=== PATIENT | male | born 1940 | race Caucasian/White ===

== ENCOUNTER 2019-10-16 09:40 | Emergency (ER) | payer MEDICARE, OTHER, SELFPAY ==
[2019-09-11 14:39] VITALS: BMI 38.2
[2019-10-16 09:41] VITALS: BP 148/99; PULSE 91; RESP 20; TEMP 37.2; O2SAT 93; BMI 34.9
[2019-10-16] MEDS: Silver Nitrate (BKC) 1 EACH TOPICAL (10:22)
[2019-10-16 10:23] LABS: International Normalized Ratio 2.6; Prothrombin Time (Protime)PT. 27.8 SECONDS (11.7-14.9)
--- NOTE | 2019-10-16 10:25 | ED.VISSUMM ---
- ER Visit Summary Date of Service: 10/16/19 Chief Complaint: Nosebleed History of Present Illness: The patient is a 79 M presenting with nosebleed. Patient states that he has had nosebleed on and off for the past week. He was seen at [facility] on Wednesday and Wednesday of last week. He states initially he had packing placed on Wednesday. Bleeding resolved. Started again on Wednesday. He went back to the ED at [place] and his packing was removed. He then followed up with Dr. Parvez Jaramillo the same day. His nose was cauterized. His states it bled intermittently and Wednesday. The bleeding had stopped Wednesday and Wednesday and started again today. He is on Coumadin. She states 2 doses of his Coumadin were held last week. He was restarted on 10 mg of Coumadin. Physical Examination: Vitals are stable. Patient is afebrile. Alert no acute distress. HEENT exam epistaxis right nares with clot. Blood in posterior pharynx. Neck is supple. Lungs are clear and equal bilaterally. Heart is regular rate and rhythm. Extremities are unremarkable. Skin is warm and dry. No focal neurologic deficit. Remainder of exam is unremarkable. Emergency Department Course and Treatment: Direct pressure was applied. Rhino Rocket was placed. Patient continued to have bleeding. Packing was removed. Silver nitrate stick was used to cauterize. Thrombin spray was instilled into right naris. Rhino Rocket was reinserted. Discussed with Dr. Phipps who recommends continued direct pressure and discharge with Rhino Rocket. On reevaluation, bleeding has stopped. He will follow-up with Dr. Phipps. Advised return to ED for worsening complaints. Disposition: Discharge home Impression: Epistaxis This note was generated with [employer] dictation software. It may contain incorrect words, spelling, and punctuation that were not noted in review of the chart prior to signing ED Disposition - Plan for ED Patient: Instructions: Nosebleed Referrals: Parvez Phipps MD [STAFF PHYSICIAN] - Laith Barriga MD [NON-STAFF] -
--- NOTE | 2019-10-16 12:24 | ED.DEP ---
ED Disposition - Plan for ED Patient: Instructions: Nosebleed Referrals: Laith Barriga MD [NON-STAFF] - Parvez Phipps MD [STAFF PHYSICIAN] -
[2019-10-16 13:09] VITALS: BP 148/90; PULSE 82; RESP 18; O2SAT 98
== END 2019-10-16 13:11 | disposition home or self-care (01) ==
PROVIDERS: Emergency Provider Emergency Medicine; Family Provider Nurse Practitioner
DX: R04.0 Epistaxis (principal); I48.91 Unspecified atrial fibrillation; I11.0 Hypertensive heart disease with heart failure; I50.9 Heart failure, unspecified; Z79.01 Long term (current) use of anticoagulants; Z79.899 Other long term (current) drug therapy
CPT/HCPCS: 30901; 85610; 99284

== ENCOUNTER → 2020-05-15 | Outpatient (CLI) | payer MEDICARE, OTHER, SELFPAY ==
[2020-05-15 17:22] VITALS: BMI 38.1
[2020-05-15 22:20] LABS: ALB/GLOB Ratio 0.6 RATIO (0.9-2.4); AST(SGOT) 72 U/L (15-37); Alanine Aminotransfer ALT/SGPT 44 U/L (16-61); Albumin, Serum 2.7 g/dL (3.2-5.0); Alkaline Phosphatase 147 U/L (45-117); Anion Gap 9 (5-15); BUN 35 mg/dL (7-18); BUN/Creat Ratio 17.2 RATIO (10-20); Chloride 107 mmol/L (98-107); Creatinine, Serum 2.03 mg/dL (0.70-1.30); EST Glomerular Filtration Rate 34 mL/min (>60); Est Glom Filt Rate - Afr Amer 41 mL/min (>60); Globulin 4.8 g/dL (2.2-4.2); Glucose 145 mg/dL (74-106); PSA,Total - Annual Screen 0.65 ng/mL (0.00-4.00); Potassium 3.6 mmol/L (3.5-5.1); Protein, Total 7.5 g/dL (6.4-8.2); Sodium Level 141 mmol/L (136-145)
== END | disposition home or self-care (01) ==
PROVIDERS: Referring Provider Nurse Practitioner; Visit Provider Nurse Practitioner
DX: I50.9 Heart failure, unspecified (principal); I48.91 Unspecified atrial fibrillation; N40.0 Benign prostatic hyperplasia without lower urinary tract symptoms
CPT/HCPCS: 80053; 84153; G0103

== ENCOUNTER 2021-04-03 08:30 | Emergency (ER) | payer OTHER, MEDICARE, SELFPAY ==
[2021-03-21 16:46] VITALS: BMI 38.5
[2021-04-03 08:31] VITALS: BP 152/89; PULSE 76; RESP 26; TEMP 36.6; O2SAT 86; BMI 38.7
--- NOTE | 2021-04-03 09:16 | EDS_ITS ---
HPI History of Present Illness Chief Complaint: Nosebleed Narrative Narrative: Patient presents with left epistaxis that started yesterday. He is on Coumadin for atrial fibrillation. He is on home oxygen. He has not been using Vaseline in his nose recently. He has no other symptoms he has no rectal bleeding or any other problems with bleeding. He has had epistaxis in the past for similar reasons. He has seen ENT. His INR was last checked 2 weeks ago. [facility] Medical History (Updated 04/03/21 @ 10:[address] Oscar Lockhart MD) Alzheimer's dementia Atrial fib/flutter, transient Atrial fibrillation status post cardioversion BPH (benign prostatic hyperplasia) Depression Diabetes type 2, uncontrolled Edema, lower extremity Hyperlipidemia Hypertension Insomnia Sleep apnea Home Medications atorvastatin 80 mg tablet 80 mg PO DAILY 03/23/19 [History Last Taken Unknown] carvedilol 6.25 mg tablet 6.25 mg PO BID 03/23/19 [History Last Taken Unknown] cholecalciferol (vitamin D3) 50 mcg (2,000 unit) capsule 2,000 unit PO DAILY 03/23/19 [History Last Taken Unknown] donepezil 5 mg tablet 5 mg PO DAILY 03/23/19 [History Last Taken Unknown] melatonin 10 mg capsule 10 mg PO HS PRN 03/23/19 [History Last Taken Unknown] warfarin 4 mg tablet 4 mg PO DAILY 03/23/19 [History Last Taken Unknown] tamsulosin 0.4 mg capsule 0.4 mg PO DAILY #90 cap 05/15/20 [Rx Last Taken Unknown] torsemide 20 mg tablet 20 mg PO BID tab 05/15/20 [History Last Taken Unknown] inhalat.spacing dev,med. mask #1 ea 01/24/21 [Rx Last Taken Unknown] albuterol sulfate 90 mcg/actuation aerosol inhaler 2 puff INHALATION Q6H PRN 03/21/21 [History Last Taken Unknown] aspirin 81 mg tablet,delayed release 81 mg PO DAILY 03/21/21 [History Last Taken Unknown] diphenhydramine HCl 25 mg tablet 25 mg PO QHS 03/21/21 [History Last Taken Unknown] febuxostat 40 mg tablet 40 mg PO DAILY 03/21/21 [History Last Taken Unknown] memantine 5 mg tablet 5 mg PO BID #60 tab 03/21/21 [Rx Last Taken Unknown] multivitamin 1 tab PO DAILY 03/21/21 [History Last Taken Unknown] venlafaxine 75 mg capsule,extended release 24 hr 75 mg PO DAILY #90 cap 03/21/21 [Rx Last Taken Unknown] hydroxyzine HCl 10 mg tablet 10 mg PO TID-QID PRN #360 tab 04/01/21 [Rx Last Taken Unknown] warfarin [Coumadin] 4 mg PO SUTHFRSA 04/03/21 [History Last Taken Unknown] Allergy/AdvReac Type Severity Reaction Status Date / Time No Known Allergies Allergy Verified 04/03/21 08:37 Family History (Updated 03/23/19 @ 15:16 by Elen Barriga [employer], [employer]-C) Other Cancer Heart disease Hypertension Surgical History H/O splenectomy History of appendectomy History of nephrectomy, right Social History (Updated 05/15/20 @ 19:31 by Elen Barriga [employer], [employer]) Smoking Status: Never smoker alcohol intake: never ROS ROS ED ROS Narrative Past medical history: Borderline diabetes, vitamin B deficiency, chronic renal insufficiency, anemia, CHF, home oxygen, atrial fibrillation, BPH Medications: Reviewed at the bedside and in the computer. Social history: Noncontributory Review of systems: All systems negative except as indicated General: No fever Eyes: No visual changes ENT: Epistaxis as above Neck: No neck pain Cardiovascular: No chest pain Respiratory: Chronic dyspnea no new shortness of breath. Gastrointestinal: No nausea vomiting no black or red stools. Genitourinary: No hematuria Skin: No recent abrasions lacerations or any increased bleeding. Hematologic: He is prone to easy bleeding secondary to Coumadin however has not been an issue other than the epistaxis EXAM Physical Exam Narrative Exam Narrative: Physical exam General: Patient is relatively comfortable in the bed. Head: Normocephalic, Atraumatic Eyes: Conjunctiva not pale ENT: Left anterior plexus epistaxis, he does have some posterior oropharyngeal signs of bleeding. Neck: Supple, Nontender, No lymphadenopathy Cardiovascular: Somewhat irregular Respiratory: Coarse bilateral breath sounds but he is speaking in full sentences he uses his oxygen in his mouth secondary to his nose being clamped. He is not in any distress. GI: Abdomen is soft and nontender Extremities: Nontender, slight bilateral symmetric edema. Skin: Normal color, No rash. No pallor noted. Neurological: No focal deficit Const Vital Signs: 04/03/21 08:31 04/03/21 09:27 Temperature 98 F 98 F Temperature Source Temporal Temporal Pulse Rate 76 87 Respiratory Rate 26 H 19 H Blood Pressure 152/89 H 152/89 H Blood Pressure Mean 110 110 Pulse Ox 86 92 Oxygen Delivery Method Room Air Blow-by MDM MDM MDM Narrative Medical decision making narrative: After cauterizing the nose I observed for over an hour there is no rebleeding I rechecked the nare there is no signs of bleeding. INR is 4, I told the patient to decrease the Coumadin in half for the next 5 days and then get his INR checked early next week by his PCP, Dr. Toth in [place]. Otherwise he appears well there are no other signs of bleeding I believe he can be safely discharged. Lab Data Labs: Laboratory Results - last 24 hr 04/03/21 09:30 PT 38.5 H INR 4.0 H* Procedures Other Procedures Procedure(s): Epistaxis treatment Verbal consent obtained Silver nitrate stick was used to cauterize the left anterior plexus. Reevaluation at 5 minutes does not show any bleeding. Patient tolerated procedure well. Discharge Plan Triage Chief Complaint: Nosebleed ED Provider: Oscar Lockhart Dx/Rx/DC Orders Clinical Impression: Acute anterior epistaxis Instructions: ED Epistaxis (Adult) Prescriptions: No Action melatonin 10 mg capsule 10 mg PO HS PRN (Reason: Sleep) RF: 0 donepezil 5 mg tablet 5 mg PO DAILY RF: 0 cholecalciferol (vitamin D3) 2,000 unit capsule 2,000 unit PO DAILY RF: 0 warfarin 4 mg tablet 5 mg PO MOTUWE RF: 0 carvedilol 6.25 mg tablet 6.25 mg PO BID RF: 0 atorvastatin 80 mg tablet 80 mg PO DAILY RF: 0 torsemide 20 mg tablet 20 mg PO BID RF: 0 tamsulosin [Flomax] 0.4 mg capsule 0.4 mg PO DAILY Qty: 90 RF: 3 febuxostat 40 mg tablet 40 mg PO DAILY RF: 0 aspirin 81 mg tablet,delayed release (DR/EC) 81 mg PO DAILY RF: 0 diphenhydramine HCl [Allergy (diphenhydramine)] 25 mg tablet 25 mg PO QHS RF: 0 multivitamin Tablet 1 tab PO DAILY RF: 0 albuterol sulfate 90 mcg/actuation HFA aerosol inhaler 2 puff inhalation Q6H PRN (Reason: Shortness Of Breath) RF: 0 venlafaxine 75 mg capsule,extended release 24hr 75 mg PO DAILY Qty: 90 RF: 3 memantine [Namenda] 5 mg tablet 5 mg PO BID Qty: 60 RF: 1 warfarin [Coumadin] 4 mg Tablet 4 mg PO SUTHFRSA RF: 0 (DME) Space Chamber with Medium Mask Spacer See Rx Instructions .ROUTE .MEDSUPPLY Qty: 1 RF: 1 hydroxyzine HCl 10 mg tablet 10 mg PO TID-QID PRN (Reason: anxiety) Qty: 360 RF: 3 Primary Care Provider: Elen Barriga Referrals: Néstor Toth MD [NON-STAFF] - Elen Barriga [Primary Care Provider] - Activity Restrictions/Additional Instructions: Your INR was 4.0 today. Decrease your Coumadin in half over the next 5 days. Call today to get an appointment for redraw of the INR, which is your Coumadin level, early next week.
[2021-04-03 09:27] VITALS: BP 152/89; PULSE 87; RESP 19; TEMP 36.6; O2SAT 92
[2021-04-03] MEDS: Silver Nitrate (BKC) 1 EACH TOPICAL (09:32)
[2021-04-03 09:54] LABS: Prothrombin Time (Protime)PT. 38.5 SECONDS (11.7-14.9)
[2021-04-03 10:49] VITALS: PULSE 95; RESP 17; O2SAT 93
== END 2021-04-03 10:50 | disposition home or self-care (01) ==
LOC: ED 09:19
PROVIDERS: Emergency Provider Emergency Medicine
DX: R04.0 Epistaxis (principal); I13.0 Hypertensive heart and chronic kidney disease with heart failure and stage 1 through stage 4 chronic kidney disease, or unspecified chronic kidney disease; I50.9 Heart failure, unspecified; E11.22 Type 2 diabetes mellitus with diabetic chronic kidney disease; N18.9 Chronic kidney disease, unspecified; E11.65 Type 2 diabetes mellitus with hyperglycemia; I48.91 Unspecified atrial fibrillation; G30.9 Alzheimer's disease, unspecified; F02.80 Dementia in other diseases classified elsewhere, unspecified severity, without behavioral disturbance, psychotic disturbance, mood disturbance, and anxiety; E78.5 Hyperlipidemia, unspecified; N40.0 Benign prostatic hyperplasia without lower urinary tract symptoms; G47.30 Sleep apnea, unspecified; E53.9 Vitamin B deficiency, unspecified; G47.00 Insomnia, unspecified; F32.9 Major depressive disorder, single episode, unspecified; Z79.82 Long term (current) use of aspirin; Z79.01 Long term (current) use of anticoagulants; Z79.899 Other long term (current) drug therapy; Z99.81 Dependence on supplemental oxygen; Z90.81 Acquired absence of spleen; Z90.5 Acquired absence of kidney
CPT/HCPCS: 30901 ×2; 85610; 99282; 99283; A4216

== ENCOUNTER 2021-04-03 20:08 | Emergency (ER) | payer OTHER, MEDICARE, SELFPAY ==
[2021-04-03 08:31] VITALS: BMI 38.7
[2021-04-03 20:09] VITALS: BP 128/103; PULSE 105; RESP 19; TEMP 36.6; O2SAT 93; BMI 36.5
--- NOTE | 2021-04-03 20:55 | EX.ED.DYSGE1 ---
HPI History of Present Illness Chief Complaint: Nosebleed Informant: patient Onset/Context/Timing Onset: Today Context: Sudden Onset Timing: Continuous Current Severity: Mild Maximum Severity: Moderate Narrative Narrative: The patient is an 81-year-old male with medical history significant for A. fib and CHF who presents to the emergency department nosebleed. The patient was seen here earlier for nosebleed. At that time, he had his nose cauterized. He states that it was not bleeding until approximately hour and a half ago. He states it seemed to come from the right side. He was seen earlier for a left-sided bleed. His INR at that time was 4. He denies any other symptoms. Prior similar symptoms: Yes Recent Illness/Hospitalization: No PFSH [facility] Medical History Alzheimer's dementia Atrial fib/flutter, transient Atrial fibrillation status post cardioversion BPH (benign prostatic hyperplasia) Depression Diabetes type 2, uncontrolled Edema, lower extremity Hyperlipidemia Hypertension Insomnia Sleep apnea Home Medications atorvastatin 80 mg tablet 80 mg PO DAILY 03/23/19 [History Last Taken Unknown] carvedilol 6.25 mg tablet 6.25 mg PO BID 03/23/19 [History Last Taken Unknown] cholecalciferol (vitamin D3) 50 mcg (2,000 unit) capsule 2,000 unit PO DAILY 03/23/19 [History Last Taken Unknown] donepezil 5 mg tablet 5 mg PO DAILY 03/23/19 [History Last Taken Unknown] melatonin 10 mg capsule 10 mg PO HS PRN 03/23/19 [History Last Taken Unknown] warfarin 4 mg tablet 5 mg PO MOTUWE 03/23/19 [History Last Taken Unknown] tamsulosin 0.4 mg capsule 0.4 mg PO DAILY #90 cap 05/15/20 [Rx Last Taken Unknown] torsemide 20 mg tablet 20 mg PO BID tab 05/15/20 [History Last Taken Unknown] inhalat.spacing dev,med. mask #1 ea 01/24/21 [Rx Last Taken Unknown] albuterol sulfate 90 mcg/actuation aerosol inhaler 2 puff INHALATION Q6H PRN 03/21/21 [History Last Taken Unknown] aspirin 81 mg tablet,delayed release 81 mg PO DAILY 03/21/21 [History Last Taken Unknown] diphenhydramine HCl 25 mg tablet 25 mg PO QHS 03/21/21 [History Last Taken Unknown] febuxostat 40 mg tablet 40 mg PO DAILY 03/21/21 [History Last Taken Unknown] memantine 5 mg tablet 5 mg PO BID #60 tab 03/21/21 [Rx Last Taken Unknown] multivitamin 1 tab PO DAILY 03/21/21 [History Last Taken Unknown] venlafaxine 75 mg capsule,extended release 24 hr 75 mg PO DAILY #90 cap 03/21/21 [Rx Last Taken Unknown] hydroxyzine HCl 10 mg tablet 10 mg PO TID-QID PRN #360 tab 04/01/21 [Rx Last Taken Unknown] warfarin [Coumadin] 4 mg PO SUTHFRSA 04/03/21 [History Last Taken Unknown] Allergy/AdvReac Type Severity Reaction Status Date / Time No Known Allergies Allergy Verified 04/03/21 20:09 Family History Other Cancer Heart disease Hypertension Surgical History H/O splenectomy History of appendectomy History of nephrectomy, right Social History Smoking Status: Never smoker alcohol intake: never ROS ROS ED Constitutional Constitutional ED: Denies chills or fever(s) Eyes Eyes: Denies blurry vision or change in vision ENT ENT ED: Reports rhinorrhea; Denies ear pain or sore throat Cardiovascular Cardiovascular: Denies chest pain or palpitations Respiratory/Chest Respiratory/Chest: Denies cough, dyspnea or dyspnea on exertion Gastrointestinal Gastrointestinal: Denies abdominal pain, nausea or vomiting Genitourinary Genitourinary ED: Denies dysuria or urinary frequency Musculoskeletal Musculoskeletal: Denies arthralgias or myalgias Integumentary Denies rash Neurologic Neurologic: Denies headache(s) or paresthesias Psychiatric Psychiatric: Denies anxiety or depression Endocrine Endocrinology: Denies polydipsia or polyuria Allergic/Immunologic Allergic/Immunologic ED: Denies urticaria EXAM Physical Exam Const Vital Signs: 04/03/21 20:09 Temperature 97.8 F Temperature Source Temporal Pulse Rate 105 H Respiratory Rate 19 H Blood Pressure 128/103 H Blood Pressure Mean 111 Pulse Ox 93 Oxygen Delivery Method Nasal Cannula Oxygen Flow Rate (L/min) 2 Positive well nourished and well developed General Appearance ED: well developed HEENT Reports normocephalic, head/scalp atraumatic and moist mucous membranes HEENT Narrative: Patient does have large clot within the left nares. There is no evidence of posterior bleeding. Eyes PERRL and EOMs intact bilaterally Neck no lymphadenopathy and supple General: Negative for tenderness Chest Wall inspection of chest normal Resp normal respiratory effort and clear to auscultation bilaterally Cardio regular rate, regular rhythm and no murmurs GI normal to inspection, nondistended, normoactive bowel sounds Palpation: Negative for tender, guarding or rebound tenderness present Back/Spine no CVA tenderness Cervical Spine: Negative for cervical spine tenderness Thoracic Spine / Upper Back: Negative for thoracic spinal tenderness Extremity normal to inspection General Extremety ED: Negative for tenderness Neuro oriented x3 and CN's II-XII intact bilaterally Neuro Narrative: No focal deficits appreciated. Sensorium / Orientation: alert Psych mental status grossly normal Skin no rashes or lesions noted, no wounds and skin turgor normal Discharge Plan Triage Chief Complaint: Nosebleed ED Provider: Quinn Castrejon Dx/Rx/DC Orders Instructions: Nosebleed Prescriptions: No Action melatonin 10 mg capsule 10 mg PO HS PRN (Reason: Sleep) RF: 0 donepezil 5 mg tablet 5 mg PO DAILY RF: 0 cholecalciferol (vitamin D3) 2,000 unit capsule 2,000 unit PO DAILY RF: 0 warfarin 4 mg tablet 5 mg PO MOTUWE RF: 0 carvedilol 6.25 mg tablet 6.25 mg PO BID RF: 0 atorvastatin 80 mg tablet 80 mg PO DAILY RF: 0 torsemide 20 mg tablet 20 mg PO BID RF: 0 tamsulosin [Flomax] 0.4 mg capsule 0.4 mg PO DAILY Qty: 90 RF: 3 febuxostat 40 mg tablet 40 mg PO DAILY RF: 0 aspirin 81 mg tablet,delayed release (DR/EC) 81 mg PO DAILY RF: 0 diphenhydramine HCl [Allergy (diphenhydramine)] 25 mg tablet 25 mg PO QHS RF: 0 multivitamin Tablet 1 tab PO DAILY RF: 0 albuterol sulfate 90 mcg/actuation HFA aerosol inhaler 2 puff inhalation Q6H PRN (Reason: Shortness Of Breath) RF: 0 venlafaxine 75 mg capsule,extended release 24hr 75 mg PO DAILY Qty: 90 RF: 3 memantine [Namenda] 5 mg tablet 5 mg PO BID Qty: 60 RF: 1 warfarin [Coumadin] 4 mg Tablet 4 mg PO SUTHFRSA RF: 0 (DME) Space Chamber with Medium Mask Spacer See Rx Instructions .ROUTE .MEDSUPPLY Qty: 1 RF: 1 hydroxyzine HCl 10 mg tablet 10 mg PO TID-QID PRN (Reason: anxiety) Qty: 360 RF: 3 Primary Care Provider: Elen Barriga Referrals: Alec Mills MD [STAFF PHYSICIAN] - 2 Days (For packing removal) Elen Barriga [Primary Care Provider] -
== END 2021-04-03 23:31 | disposition home or self-care (01) ==
PROVIDERS: Emergency Provider Emergency Medicine
DX: R04.0 Epistaxis (principal); I48.91 Unspecified atrial fibrillation; I11.0 Hypertensive heart disease with heart failure; I50.9 Heart failure, unspecified; E11.65 Type 2 diabetes mellitus with hyperglycemia; F02.80 Dementia in other diseases classified elsewhere, unspecified severity, without behavioral disturbance, psychotic disturbance, mood disturbance, and anxiety; G30.9 Alzheimer's disease, unspecified; N40.0 Benign prostatic hyperplasia without lower urinary tract symptoms; E78.5 Hyperlipidemia, unspecified; G47.00 Insomnia, unspecified; G47.30 Sleep apnea, unspecified; F32.9 Major depressive disorder, single episode, unspecified; Z79.82 Long term (current) use of aspirin; Z79.01 Long term (current) use of anticoagulants; Z79.899 Other long term (current) drug therapy; Z90.81 Acquired absence of spleen; Z90.5 Acquired absence of kidney
CPT/HCPCS: 30901; 99282; A4216

== ENCOUNTER 2021-04-08 11:38 | Observation (INO) | payer OTHER, MEDICARE, SELFPAY ==
[2021-04-08] VITALS (7 sets, daily range): BP systolic 134–139; BP diastolic 78–108; PULSE 55–116; RESP 16–20; TEMP 36.1–36.9; O2SAT 89–100; BMI 36.5; BMI 37.6
[2021-04-08] MEDS: Oxymetazoline 0.05% 1 SPRAY SPRAY.BTL 2 SPRAY NASAL (12:07)
[2021-04-08 12:44] LABS: Absolute Lymphocyte Count 1.07 X10^3/uL (0.83-4.51); Absolute Neutrophil Count 5.9 X10^3/uL (2.0-7.7); Basophil# 0.04 X10^3/uL; Basophil% 0.5 % (0-1); Eosinophil# 0.33 X10^3/uL; Hematocrit 35.7 % (40-54); Hemoglobin 11.5 g/dL (13.0-16.5); Lymphocyte # 1.07 X10^3/ul (0.83-4.51); Lymphocyte % 12.9 % (19-41); Mean Corp Hgb Conc 32.2 g/dL (32-36); Mean Corpuscular Hgb 33.3 pg (27.0-32.0); Mean Corpuscular Volume 103.5 fL (80-94); Mean Platelet Vol. 10.5 fl (6.2-12.0); Monocyte# 0.92 X10^3/uL; Monocyte% 11.1 % (0-10); NRBC Flagged by Analyzer 2.2 % (0-5); Neutrophil # 5.89 X10^3/uL (2.7-7.7); Neutrophil % 70.8 % (47-70); POSITIVE MORPHOLOGY YES; Platelet Count 365 K/mm3 (150-450); RBC Distribution Width CV 18.6 % (11.6-14.6); RBC Distribution Width SD 68.9 fl (35.1-43.9); Red Blood Count 3.45 M/mm3 (4.6-6.2); White Blood Count 8.3 K/mm3 (4.4-11.0)
[2021-04-08 12:54] LABS: International Normalized Ratio 2.3; Prothrombin Time (Protime)PT. 24.7 SECONDS (11.7-14.9)
[2021-04-08 12:57] LABS: Anion Gap 6 (5-15); BUN 42 mg/dL (7-18); BUN/Creat Ratio 16.8 RATIO (10-20); Calcium,Total 9.2 mg/dL (8.5-10.1); Chloride 105 mmol/L (98-107); EST Glomerular Filtration Rate 27 mL/min (>60); Est Glom Filt Rate - Afr Amer 32 mL/min (>60); Estimated Creatinine Clearance 22.42 ml/min; Glucose 98 mg/dL (74-106); Potassium 3.3 mmol/L (3.5-5.1); Sodium Level 141 mmol/L (136-145)
[2021-04-08 12:59] LABS: Differential Indicated SCAN CRITERIA MET
[2021-04-08 13:02] LABS: Anisocytosis 2+
--- NOTE | 2021-04-08 13:18 | EDS_ITS ---
HPI History of Present Illness Chief Complaint: Nosebleed Narrative Narrative: Patient presenting for evaluation secondary to epistaxis. Patient had history of left-sided epistaxis that was treated 5 days ago in the emergency department with an anterior nasal packing. Patient is on Coumadin secondary to a history of atrial fibrillation. Patient was being seen in the ear nose and throat office today, Dr. Parvez Jaramillo was evaluating the patient, removed the packing and the bleeding again started. He attempted to perform cautery in the office, but stated that the patient's bleeding was more posterior and was difficult to obtain hemostasis with cautery. He contacted the emergency department and stated that he would like the patient to come back to the emergency department for repeat evaluation. Patient's 5 days ago had a supratherapeutic of INR of 4. He has not had this rechecked yet. [facility] Medical History (Updated 04/08/21 @ 13:[address] Quinn Montenegro MD) Alzheimer's dementia Atrial fib/flutter, transient Atrial fibrillation status post cardioversion BPH (benign prostatic hyperplasia) Depression Diabetes type 2, uncontrolled Edema, lower extremity Hyperlipidemia Hypertension Insomnia Sleep apnea Home Medications atorvastatin 80 mg tablet 80 mg PO DAILY 03/23/19 [History Last Taken Unknown] carvedilol 6.25 mg tablet 6.25 mg PO BID 03/23/19 [History Last Taken Unknown] cholecalciferol (vitamin D3) 50 mcg (2,000 unit) capsule 2,000 unit PO DAILY 03/23/19 [History Last Taken Unknown] donepezil 5 mg tablet 5 mg PO DAILY 03/23/19 [History Last Taken Unknown] melatonin 10 mg capsule 10 mg PO HS PRN 03/23/19 [History Last Taken Unknown] warfarin 4 mg tablet 5 mg PO MOTUWE 03/23/19 [History Last Taken Unknown] tamsulosin 0.4 mg capsule 0.4 mg PO DAILY #90 cap 05/15/20 [Rx Last Taken Unknown] torsemide 20 mg tablet 20 mg PO BID tab 05/15/20 [History Last Taken Unknown] inhalat.spacing dev,med. mask #1 ea 01/24/21 [Rx Last Taken Unknown] albuterol sulfate 90 mcg/actuation aerosol inhaler 2 puff INHALATION Q6H PRN 03/21/21 [History Last Taken Unknown] aspirin 81 mg tablet,delayed release 81 mg PO DAILY 03/21/21 [History Last Taken Unknown] diphenhydramine HCl 25 mg tablet 25 mg PO QHS 03/21/21 [History Last Taken Unknown] febuxostat 40 mg tablet 40 mg PO DAILY 03/21/21 [History Last Taken Unknown] memantine 5 mg tablet 5 mg PO BID #60 tab 03/21/21 [Rx Last Taken Unknown] multivitamin 1 tab PO DAILY 03/21/21 [History Last Taken Unknown] venlafaxine 75 mg capsule,extended release 24 hr 75 mg PO DAILY #90 cap 03/21/21 [Rx Last Taken Unknown] hydroxyzine HCl 10 mg tablet 10 mg PO TID-QID PRN #360 tab 04/01/21 [Rx Last Taken Unknown] warfarin [Coumadin] 4 mg PO SUTHFRSA 04/03/21 [History Last Taken Unknown] Allergy/AdvReac Type Severity Reaction Status Date / Time No Known Allergies Allergy Verified 04/08/21 11:41 Family History Other Cancer Heart disease Hypertension Surgical History H/O splenectomy History of appendectomy History of nephrectomy, right Social History Smoking Status: Never smoker alcohol intake: never ROS ROS ED Constitutional Constitutional ED: Denies fever(s) Eyes Eyes: Denies change in vision ENT ENT ED: Reports other Details: Nosebleed Cardiovascular Cardiovascular: Denies chest pain Respiratory/Chest Respiratory/Chest: Denies cough or dyspnea Gastrointestinal Gastrointestinal: Denies nausea or vomiting Musculoskeletal Musculoskeletal: Denies myalgias Integumentary Denies rash Neurologic Neurologic: Denies headache(s) or weakness Allergic/Immunologic Allergic/Immunologic ED: Denies urticaria EXAM Physical Exam Const Vital Signs: 04/08/21 11:39 Temperature 98.5 F Temperature Source Temporal Pulse Rate 107 H Respiratory Rate 18 Blood Pressure 134/108 H Blood Pressure Mean 116 Pulse Ox 89 Oxygen Delivery Method Nasal Cannula Oxygen Flow Rate (L/min) 2 Positive well nourished, well developed and obese General Appearance ED: well developed Nutritional Appearance: obese HEENT HEENT Narrative: Patient has active epistaxis coming from the left nostril with clots present. He also has bleeding in the posterior oropharynx. Airway is not compromised. Eyes PERRL and EOMs intact bilaterally Neck supple Resp normal respiratory effort and clear to auscultation bilaterally Cardio regular rate and no murmurs GI normal to inspection, nondistended, normoactive bowel sounds Extremity General Extremety ED: Negative for tenderness Neuro oriented x3 Sensorium / Orientation: alert Skin no rashes or lesions noted MDM MDM MDM Narrative Medical decision making narrative: Patient presented for evaluation secondary to refractory epistaxis. Upon the patient's arrival he was continuing to bleed. Bleeding was slow but was both anterior and posterior. Due to the fact that ENT reported that the patient's bleeding was more posterior I addressed the patient immediately for nasal packing with a 7.5 cm Rhino Rocket. I had the patient try to expel clots from his nostril. I attempted anesthetization of the patient's with 4% cocaine. Patient was unable to tolerate nasal packing placement. He was both to tender and also seems significantly stenotic in his left nostril likely secondary to his recent instrumentation. I repeated this multiple times, and was unable to provide adequate packing. I contacted Dr. Parvez Jaramillo who did send the patient. He advised that potentially the patient would not tolerate packing and less he was sedated. Patient is already chronically ill on supplemental oxygen and I do not feel comfortable with procedural sedation in the emergency department for nasal packing. I did inform Dr. Jaramillo of this. He stated that he no longer comes to the hospital and the patient would need to be referred to the on-call physician which was Dr. Tuan Quarles. Due to the fact that the patient is already a patient of Dr. Phipps group however, I contacted Dr. Seymour Jaramillo who was performing a procedure in the operating room. He was informed that I was unable to place the nasal packing on the patient due to stenosis and discomfort. Recommendation at that point was that the patient needed nasal packing, and that the procedure should be attempted again. I dressed the patient at that point with a nasal suction catheter and was able to remove slightly more clot from the patient's nose using forceps as well as nasal suction. I again anesthetized the patient's nose with 4% cocaine. A 7.5 cm nasal packing was able to be passed with an increased amount of pressure and moderate amount of discomfort by the patient. This was inflated. Due to the patient's refractory nosebleed, I believe that he requires admission for further observation and treatment. Patient's labs show his INR normalizing down to 2.3. Patient was admitted for further treatment. Lab Data Labs: Laboratory Results - last 24 hr 04/08/21 04/08/21 04/08/21 12:30 12:30 12:30 WBC 8.3 RBC 3.45 L Hgb 11.5 L Hct 35.7 L MCV 103.5 H MCH 33.3 H MCHC 32.2 RDW Std Deviation 68.9 H RDW Coeff of Natalia 18.6 H Plt Count 365 MPV 10.5 Immature Gran % (Auto) 0.700 Neut % (Auto) 70.8 H Lymph % (Auto) 12.9 L Delta % (Auto) 11.1 H Eos % (Auto) 4.0 Baso % (Auto) 0.5 Absolute Neuts (auto) 5.9 Absolute Lymphs (auto) 1.07 Nucleated RBC % 2.2 Anisocytosis 2+ PT 24.7 H INR 2.3 APTT 43.0 H Sodium 141 Potassium 3.3 L Chloride 105 Carbon Dioxide 30.0 Anion Gap 6 BUN 42 H Creatinine 2.50 H Estim Creat Clear Calc 22.42 Est GFR (MDRD) Af Amer 32 L Est GFR (MDRD) Non-Af 27 L BUN/Creatinine Ratio 16.8 Glucose 98 Calcium 9.2 Critical Care Time Critical Care Time: Yes Critical care time (excluding procedures): 30-74 minutes Discharge Plan Triage Chief Complaint: Nosebleed ED Provider: Quinn Montenegro Dx/Rx/DC Orders Clinical Impression: Epistaxis, Failure of outpatient treatment Prescriptions: No Action melatonin 10 mg capsule 10 mg PO HS PRN (Reason: Sleep) RF: 0 donepezil 5 mg tablet 5 mg PO DAILY RF: 0 cholecalciferol (vitamin D3) 2,000 unit capsule 2,000 unit PO DAILY RF: 0 warfarin 4 mg tablet 5 mg PO MOTUWE RF: 0 carvedilol 6.25 mg tablet 6.25 mg PO BID RF: 0 atorvastatin 80 mg tablet 80 mg PO DAILY RF: 0 torsemide 20 mg tablet 20 mg PO BID RF: 0 tamsulosin [Flomax] 0.4 mg capsule 0.4 mg PO DAILY Qty: 90 RF: 3 febuxostat 40 mg tablet 40 mg PO DAILY RF: 0 aspirin 81 mg tablet,delayed release (DR/EC) 81 mg PO DAILY RF: 0 diphenhydramine HCl [Allergy (diphenhydramine)] 25 mg tablet 25 mg PO QHS RF: 0 multivitamin Tablet 1 tab PO DAILY RF: 0 albuterol sulfate 90 mcg/actuation HFA aerosol inhaler 2 puff inhalation Q6H PRN (Reason: Shortness Of Breath) RF: 0 venlafaxine 75 mg capsule,extended release 24hr 75 mg PO DAILY Qty: 90 RF: 3 memantine [Namenda] 5 mg tablet 5 mg PO BID Qty: 60 RF: 1 warfarin [Coumadin] 4 mg Tablet 4 mg PO SUTHFRSA RF: 0 (DME) Space Chamber with Medium Mask Spacer See Rx Instructions .ROUTE .MEDSUPPLY Qty: 1 RF: 1 hydroxyzine HCl 10 mg tablet 10 mg PO TID-QID PRN (Reason: anxiety) Qty: 360 RF: 3 Primary Care Provider: Elen Barriga Referrals: Elen Barriga [Primary Care Provider] - Disposition Disposition: Acute Care Hospital [facility]
--- NOTE | 2021-04-08 17:02 | PN_ITS ---
Progress Note Chief complaint nosebleed History of present illness patient is an 81-year-old white male who underwent pack removal in the office today. He rebled which prompted a visit back to the emergency room for another pack. Another pack was placed and now he has been admitted to the floor. After his first pack was placed he continued to take his Coumadin and aspirin. Physical exam: Patient is awake alert no acute distress Ears are within normal limits bilaterally. Nasal exam reveals a pack in the left nasal cavity. The cuff is inflated. There is no active bleeding. Mouth and oropharynx reveals no bleeding. Assessment: epistaxis Plan: The patient may be discharged whenever he is medically stable. He does not need to stay in the hospital because of his left nasal pack. I would recommend that he come off aspirin and Coumadin prior to pack removal in 6 days. He will need to be on antibiotics while the pack is in his nose to prevent tox ic shock syndrome.
--- NOTE | 2021-04-08 18:12 | HP.PCM.HOS_ITS ---
HPI - General General Date of Admission: 04/08/21 HPI Narrative SHANDRA QUINTERO, is a 81 M who presents intractable epistaxis. He presented on April 03, 2021 with epistaxis to the ER at that time he was found to be supratherapeutic on his INR and therefore packing was placed in his left nostril and he was discharged home with follow-up with ENT. He was seen at the ENTs office today and they could not get his bleeding under control after removing the packing therefore sent him to the ER to have the packing replaced. In the ER he was found to have an INR of 2.3. They were able to get the packing in place however it was felt that because of how posterior the culprit bleed likely was, they recommended admission for ENT consultation and evaluation. Now that he has packing in place he feels fine denies any lightheadedness or dizziness and does not feel any posterior nasal bleeding at this moment. [facility] Medical History (Updated 04/08/21 @ 14:29 by Deisy Moody) Alzheimer's dementia Anxiety Atrial fib/flutter, transient Atrial fibrillation status post cardioversion BPH (benign prostatic hyperplasia) Cirrhosis Depression Diabetes type 2, uncontrolled Edema, lower extremity Hearing loss, left Hearing loss, right Hyperlipidemia Hypertension Insomnia Kidney disease On home oxygen therapy Osteoarthritis Sleep apnea Home Medications atorvastatin 80 mg tablet 80 mg PO QHS 03/23/19 [History Last Taken 04/07/21] carvedilol 6.25 mg tablet 6.25 mg PO BID 03/23/19 [History Last Taken 04/07/21] cholecalciferol (vitamin D3) 50 mcg (2,000 unit) capsule 2,000 unit PO DAILY 03/23/19 [History Last Taken 04/07/21] donepezil 5 mg tablet 5 mg PO DAILY 03/23/19 [History Last Taken 04/07/21] melatonin 10 mg capsule 10 mg PO HS PRN 03/23/19 [History Last Taken 04/07/21] warfarin 4 mg tablet 10 mg PO MOWEFR 03/23/19 [History Last Taken 04/07/21] torsemide 20 mg tablet 20 mg PO BID tab 05/15/20 [History Last Taken 04/07/21] inhalat.spacing dev,med. mask #1 ea 01/24/21 [Rx Last Taken Unknown] albuterol sulfate 90 mcg/actuation aerosol inhaler 2 puff INHALATION Q6H PRN 03/21/21 [History Last Taken 04/08/21] aspirin 81 mg tablet,delayed release 81 mg PO DAILY 03/21/21 [History Last Taken 04/07/21] diphenhydramine HCl 25 mg tablet 25 mg PO QHS 03/21/21 [History Last Taken 04/07/21] febuxostat 40 mg tablet 40 mg PO DAILY 03/21/21 [History Last Taken 04/07/21] multivitamin 1 tab PO DAILY 03/21/21 [History Last Taken Unknown] hydroxyzine HCl 10 mg tablet 10 mg PO TID-QID PRN #360 tab 04/01/21 [Rx Last Taken 04/08/21] warfarin [Coumadin] 8 mg PO SUTHFRSA 04/03/21 [History Last Taken 04/06/21] memantine [Namenda] 5 mg PO BID 04/08/21 [History Last Taken 04/07/21] tamsulosin [Flomax] 0.4 mg PO QHS 04/08/21 [History Last Taken 04/07/21] venlafaxine 75 mg PO DAILY 04/08/21 [History Last Taken 04/07/21] Allergy/AdvReac Type Severity Reaction Status Date / Time No Known Allergies Allergy Verified 04/08/21 11:41 Family History Other Cancer Heart disease Hypertension Surgical History H/O splenectomy History of appendectomy History of nephrectomy, right Social History Smoking Status: Former smoker alcohol intake: never ROS Constitutional Constitutional: Denies chills, fatigue or fever(s) Eyes Eyes: Denies change in vision ENT HEENT: Reports epistaxis Cardiovascular Cardiovascular: Denies chest pain or dyspnea on exertion Respiratory/Chest Respiratory/Chest: Denies cough, dyspnea or hemoptysis Gastrointestinal Gastrointestinal: Denies abdominal pain, diarrhea, nausea or vomiting Integumentary Integumentary: Denies rash Neurologic Neurologic: Denies focal weakness, headache(s) or weakness Psychiatric Psychiatric: Denies anxiety or depression Allergic/Immunologic Allergic/Immunologic: Denies urticaria Vital Signs Vital Signs Vital Signs: 04/08/21 11:39 04/08/21 13:22 04/08/21 14:33 Temperature 98.5 F 97.9 F 98.2 F Temperature Source Temporal Temporal Oral Pulse Rate 107 H 79 55 L Respiratory Rate 18 20 H 18 Respiratory Effort Respiratory Depth Respiratory Pattern Blood Pressure 134/108 H 139/91 H 138/86 H Blood Pressure Mean 116 107 103 Blood Pressure Source Monitor Blood Pressure Position Semi-Fowlers Blood Pressure Location Left Arm Pulse Ox 89 93 100 Oxygen Delivery Method Nasal Cannula Nasal Cannula Nasal Cannula Oxygen Flow Rate (L/min) 2 2 04/08/21 14:37 04/08/21 15:17 Temperature Temperature Source Pulse Rate 116 H Respiratory Rate Respiratory Effort Normal Non-Labored Respiratory Depth Normal Respiratory Pattern Normal Blood Pressure Blood Pressure Mean Blood Pressure Source Blood Pressure Position Blood Pressure Location Pulse Ox Oxygen Delivery Method Nasal Cannula Oxygen Flow Rate (L/min) 2 Weight Weight: 247 lb 9.266 oz Body Mass Index (BMI) 37.6 Physical Exam Const alert, oriented x3 and no apparent distress General Appearance: cooperative HEENT normocephalic and moist oral mucous membranes Nose: epistaxis left (Packing in place with no obvious active bleed) Eyes PERRL, EOMs intact bilaterally and conjunctivae normal Neck supple and no JVD Resp normal respiratory effort and clear to auscultation bilaterally Auscultation: Negative for crackles, rales, rhonchi or wheezes Cardio S1 normal heart sound, S2 normal heart sound and no murmurs Rate: tachycardic Rhythm: abnormal rhythm GI soft to palpation, non-tender and non-distended; Negative for hepatosplenomegaly Extremity no clubbing, cyanosis or edema Skin no rashes or lesions noted Neuro no focal motor deficits and no sensory deficits noted Psych affect normal Lab / Micro Data Result Diagrams: 04/08/21 12:30 04/08/21 12:30 Labs: Laboratory Results - last 24 hr 04/08/21 04/08/21 04/08/21 12:30 12:30 12:30 WBC 8.3 RBC 3.45 L Hgb 11.5 L Hct 35.7 L MCV 103.5 H MCH 33.3 H MCHC 32.2 RDW Std Deviation 68.9 H RDW Coeff of Natalia 18.6 H Plt Count 365 MPV 10.5 Immature Gran % (Auto) 0.700 Neut % (Auto) 70.8 H Lymph % (Auto) 12.9 L [place] % (Auto) 11.1 H Eos % (Auto) 4.0 Baso % (Auto) 0.5 Absolute Neuts (auto) 5.9 Absolute Lymphs (auto) 1.07 Nucleated RBC % 2.2 Anisocytosis 2+ PT 24.7 H INR 2.3 APTT 43.0 H Sodium 141 Potassium 3.3 L Chloride 105 Carbon Dioxide 30.0 Anion Gap 6 BUN 42 H Creatinine 2.50 H Estim Creat Clear Calc 22.42 Est GFR (MDRD) Af Amer 32 L Est GFR (MDRD) Non-Af 27 L BUN/Creatinine Ratio 16.8 Glucose 98 Calcium 9.2 Blood Type Antibody Screen 04/08/21 12:30 WBC RBC Hgb Hct MCV MCH MCHC RDW Std Deviation RDW Coeff of Natalia Plt Count MPV Immature Gran % (Auto) Neut % (Auto) Lymph % (Auto) [place] % (Auto) Eos % (Auto) Baso % (Auto) Absolute Neuts (auto) Absolute Lymphs (auto) Nucleated RBC % Anisocytosis PT INR APTT Sodium Potassium Chloride Carbon Dioxide Anion Gap BUN Creatinine Estim Creat Clear Calc Est GFR (MDRD) Af Amer Est GFR (MDRD) Non-Af BUN/Creatinine Ratio Glucose Calcium Blood Type A POSITIVE Antibody Screen NEGATIVE Assessment & Plan Assessment/Plan (1) Epistaxis: (2) Atrial fibrillation: QUALIFIERS: Atrial fibrillation type: longstanding persistent Qualified Code(s): I48.11 - Longstanding persistent atrial fibrillation PLAN: 1. Epistaxis -Control the bleeding from his left nostril secondary to his supratherapeutic INR -Hold Coumadin as it is for A. fib -Continue with left nasal packing -Consult ENT 2. A. fib/HTN/HLD/CHF unknown type -Continue to monitor his heart rate, will resume his home blood pressure medications -Hold Coumadin, INR is 2.3 -We will likely need to hold his Coumadin for several days to get his nosebleed under control -No echoes in our system for evaluation -Continue with Lipitor and Lasix -Hold aspirin for now as well 3. COPD/chronic hypoxia -Not in exacerbation -Continue with albuterol and oxygen at 2 L nasal cannula which she is on at baseline 4. Gout -Stable -continue with his home medications 5. Anxiety/depression/dementia -Stable -Continue with Effexor, Namenda DVT: Supratherapeutic INR Visit Charges OBSV E&M: 13819 Initial observation care L2
[2021-04-08 19:08] LABS: Hematocrit 35.5 % (40-54); Hemoglobin 11.5 g/dL (13.0-16.5)
[2021-04-08] MEDS: Acetaminophen 325 MG Tablet 650 MG PO (20:21)
[2021-04-08] MEDS: DiphenhydrAMINE 25 MG Capsule PO (20:23)
[2021-04-08] MEDS: Furosemide 40 MG Tablet PO (20:23)
[2021-04-08] MEDS: Atorvastatin Calcium 80 MG Tablet PO (20:23)
[2021-04-08] MEDS: Tamsulosin HCl 0.4 MG Capsule PO (20:24)
[2021-04-08] MEDS: Carvedilol 6.25 MG Tablet PO (20:24)
--- NOTE | 2021-04-08 20:40 | NURSING ---
Discussed O2 needs with respiratory therapy. pt wears 2l 02 at home, has nasal packing in. pulse ox was 88% on the 2l however he has been mouth breathing. Increased o2 to 4l and humidified per respiratory suggestion. pulse ox improved to 97%.
[2021-04-08] MEDS: MELATONIN 10 MG TABLET PO (21:44)
[2021-04-09 03:00] VITALS: PULSE 94
[2021-04-09 03:15] VITALS: BP 141/97; PULSE 76; RESP 18; TEMP 36.4; O2SAT 98
[2021-04-09] MEDS: Acetaminophen 325 MG Tablet 650 MG PO (05:57)
[2021-04-09 07:00] VITALS: PULSE 83
[2021-04-09 07:02] LABS: Absolute Lymphocyte Count 1.27 X10^3/uL (0.83-4.51); Absolute Neutrophil Count 5.4 X10^3/uL (2.0-7.7); Basophil# 0.05 X10^3/uL; Basophil% 0.6 % (0-1); Eosinophil# 0.28 X10^3/uL; Eosinophils% 3.5 % (0-5); Hemoglobin 10.6 g/dL (13.0-16.5); Lymphocyte # 1.27 X10^3/ul (0.83-4.51); Lymphocyte % 15.9 % (19-41); Mean Corp Hgb Conc 32.1 g/dL (32-36); Mean Corpuscular Hgb 33.2 pg (27.0-32.0); Mean Corpuscular Volume 103.4 fL (80-94); Mean Platelet Vol. 10.9 fl (6.2-12.0); Monocyte# 0.97 X10^3/uL; Monocyte% 12.2 % (0-10); NRBC Flagged by Analyzer 2.5 % (0-5); Neutrophil # 5.35 X10^3/uL (2.7-7.7); Neutrophil % 67.2 % (47-70); POSITIVE MORPHOLOGY YES; Platelet Count 347 K/mm3 (150-450); RBC Distribution Width CV 18.4 % (11.6-14.6); RBC Distribution Width SD 67.5 fl (35.1-43.9); Red Blood Count 3.19 M/mm3 (4.6-6.2)
[2021-04-09 07:06] LABS: Differential Indicated SCAN CRITERIA MET
[2021-04-09 07:24] VITALS: O2SAT 94
[2021-04-09 07:31] LABS: Acanthocytes 1+; Anisocytosis 2+; Polychromasia 1+
[2021-04-09 07:36] LABS: Anion Gap 6 (5-15); BUN 42 mg/dL (7-18); BUN/Creat Ratio 17.8 RATIO (10-20); Calcium,Total 8.9 mg/dL (8.5-10.1); Chloride 107 mmol/L (98-107); Creatinine, Serum 2.36 mg/dL (0.70-1.30); EST Glomerular Filtration Rate 28 mL/min (>60); Est Glom Filt Rate - Afr Amer 34 mL/min (>60); Estimated Creatinine Clearance 23.75 ml/min; Glucose 102 mg/dL (74-106); Potassium 3.3 mmol/L (3.5-5.1); Sodium Level 141 mmol/L (136-145)
[2021-04-09 08:15] LABS: International Normalized Ratio 2.4; Prothrombin Time (Protime)PT. 25.2 SECONDS (11.7-14.9)
[2021-04-09 09:05] VITALS: BP 101/43; PULSE 99; RESP 18; TEMP 36.7; O2SAT 97
[2021-04-09] MEDS: Febuxostat 40 MG TABLET PO (09:08)
[2021-04-09] MEDS: Memantine Hydrochloride 5 MG Tablet PO (09:08)
[2021-04-09] MEDS: Venlafaxine XR 75 MG Capsule PO (09:08)
[2021-04-09] MEDS: Furosemide 40 MG Tablet PO (09:08)
[2021-04-09] MEDS: Cholecalciferol (VIT D3) 25 MCG TABLET (1,000 UNITS) 50 MCG PO (09:08)
[2021-04-09] MEDS: Donepezil HCl 5 MG Tablet PO (09:08)
[2021-04-09] MEDS: Carvedilol 6.25 MG Tablet PO (09:38)
[2021-04-09] MEDS: Potassium Chloride Oral Tablet 20 MEQ 40 MEQ PO (09:38)
--- NOTE | 2021-04-09 10:35 | PCM.DC ---
Discharge Instructions Diet Discharge Diet: - (Cardiac) Activity Discharge Activity: Return to Normal Activity Dressing / Incision Call your doctor if you observe: Fever of 101 or Higher, Shortness of breath, Dizziness, Fainting spells, Swelling in the ankles, Chest pain and Increased palpitations (irregular heartbeat) Remove Dressing in: leave in place till F/U Follow Up Care Test Results: Test results from this visit will be discussed in further detail at your follow-up appointment, if applicable. Discharge Plan Admission Admit Date/Time: 04/08/21 13:20 Attending Provider: Pancho Meraz Primary Care Provider: Elen Barriga Consulting Providers: Seymour Phipps Instructions Patient Instructions: ED Epistaxis (Adult) Discharge Orders/Prescriptions Prescriptions: New amoxicillin-pot clavulanate 875-125 mg Tablet 875 mg PO BID Qty: 14 RF: 0 Continued melatonin 10 mg capsule 10 mg PO HS PRN (Reason: Sleep) RF: 0 donepezil 5 mg tablet 5 mg PO DAILY RF: 0 cholecalciferol (vitamin D3) 2,000 unit capsule 2,000 unit PO DAILY RF: 0 carvedilol 6.25 mg tablet 6.25 mg PO BID RF: 0 atorvastatin 80 mg tablet 80 mg PO QHS RF: 0 torsemide 20 mg tablet 20 mg PO BID RF: 0 febuxostat 40 mg tablet 40 mg PO DAILY RF: 0 diphenhydramine HCl [Allergy (diphenhydramine)] 25 mg tablet 25 mg PO QHS RF: 0 multivitamin Tablet 1 tab PO DAILY RF: 0 albuterol sulfate 90 mcg/actuation HFA aerosol inhaler 2 puff inhalation Q6H PRN (Reason: Shortness Of Breath) RF: 0 venlafaxine 75 mg capsule,extended release 24hr 75 mg PO DAILY RF: 0 tamsulosin [Flomax] 0.4 mg capsule 0.4 mg PO QHS RF: 0 memantine [Namenda] 5 mg tablet 5 mg PO BID RF: 0 (DME) Space Chamber with Medium Mask Spacer See Rx Instructions .ROUTE .MEDSUPPLY Qty: 1 RF: 1 hydroxyzine HCl 10 mg tablet 10 mg PO TID-QID PRN (Reason: anxiety) Qty: 360 RF: 3 Held warfarin 4 mg tablet 10 mg PO MOWEFR RF: 0 Hold Instructions: Resume on 04/16/21. aspirin 81 mg tablet,delayed release (DR/EC) 81 mg PO DAILY RF: 0 Hold Instructions: Resume on 04/16/21. warfarin 4 mg Tablet 8 mg PO SUTHFRSA RF: 0 Hold Instructions: Resume on 04/16/21. Referrals / Follow Up: Seymour Phipps MD [STAFF PHYSICIAN] - 04/15/21 8:00 am Elen Barriga [Primary Care Provider] - Disposition Disposition (needs filled in before D/C Order can be placed): Home, self care
--- NOTE | 2021-04-09 11:35 | PHA.DC.MC ---
Pharmacy Service has performed discharge medication reconciliation and counseling for this patient. 1. AUGMENTIN 875MG PO BID X 7 DAYS The patient's discharge medication list was reviewed for discrepancies and discrepancies were resolved. Home Medications atorvastatin 80 mg tablet 80 mg PO QHS 03/23/19 carvedilol 6.25 mg tablet 6.25 mg PO BID 03/23/19 cholecalciferol (vitamin D3) 50 mcg (2,000 unit) capsule 2,000 unit PO DAILY 03/23/19 donepezil 5 mg tablet 5 mg PO DAILY 03/23/19 melatonin 10 mg capsule 10 mg PO HS PRN 03/23/19 warfarin 4 mg tablet 10 mg PO MOWEFR 03/23/19 torsemide 20 mg tablet 20 mg PO BID tab 05/15/20 inhalat.spacing dev,med. mask #1 ea 01/24/21 albuterol sulfate 90 mcg/actuation aerosol inhaler 2 puff INHALATION Q6H PRN 03/21/21 aspirin 81 mg tablet,delayed release 81 mg PO DAILY 03/21/21 diphenhydramine HCl 25 mg tablet 25 mg PO QHS 03/21/21 febuxostat 40 mg tablet 40 mg PO DAILY 03/21/21 multivitamin 1 tab PO DAILY 03/21/21 hydroxyzine HCl 10 mg tablet 10 mg PO TID-QID PRN #360 tab 04/01/21 warfarin 8 mg PO SUTHFRSA 04/03/21 memantine [Namenda] 5 mg PO BID 04/08/21 tamsulosin [Flomax] 0.4 mg PO QHS 04/08/21 venlafaxine 75 mg PO DAILY 04/08/21 amoxicillin-pot clavulanate 875 mg PO BID #14 tab 04/09/21 The patient was counseled on the following discharge medications and changes in medications for homegoing were reviewed. The Reason for Use, instructions for use, and potential side effects were reviewed for all new medications. The patient's questions regarding all of their medications were answered. The patient was able to verbally demonstrate an understanding of their discharge medications.
[2021-04-09] MEDS: Amox/Clavulanate 500 MG Tablet PO (11:53)
--- NOTE | 2021-04-09 12:29 | PCM.DC.SUM ---
Providers Date of Admission: 04/08/21 Primary Care Physician: Elen Barriga Consultations 04/08/21 14:35 Consult: ENT Routine Consulting Provider: Seymour Phipps Reason for Consult: epistaxis EMERGENT Consult: No MD Notified: Yes Date Notified:: 04/08/21 Time Notified: 13:20 Method of Notification: Verbal Reason For Visit: EPISTAXIS Diagnosis Discharge Diagnosis (1) Epistaxis: Status: Acute Code(s): R04.0 - Epistaxis (2) Atrial fibrillation: Status: Chronic Code(s): I48.91 - Unspecified atrial fibrillation Qualifiers: Atrial fibrillation type: longstanding persistent Qualified Code(s): I48.11 - Longstanding persistent atrial fibrillation Medications at Discharge Home Medications atorvastatin 80 mg tablet 80 mg PO QHS 03/23/19 carvedilol 6.25 mg tablet 6.25 mg PO BID 03/23/19 cholecalciferol (vitamin D3) 50 mcg (2,000 unit) capsule 2,000 unit PO DAILY 03/23/19 donepezil 5 mg tablet 5 mg PO DAILY 03/23/19 melatonin 10 mg capsule 10 mg PO HS PRN 03/23/19 warfarin 4 mg tablet 10 mg PO MOWEFR 03/23/19 torsemide 20 mg tablet 20 mg PO BID tab 05/15/20 inhalat.spacing dev,med. mask #1 ea 01/24/21 albuterol sulfate 90 mcg/actuation aerosol inhaler 2 puff INHALATION Q6H PRN 03/21/21 aspirin 81 mg tablet,delayed release 81 mg PO DAILY 03/21/21 diphenhydramine HCl 25 mg tablet 25 mg PO QHS 03/21/21 febuxostat 40 mg tablet 40 mg PO DAILY 03/21/21 multivitamin 1 tab PO DAILY 03/21/21 hydroxyzine HCl 10 mg tablet 10 mg PO TID-QID PRN #360 tab 04/01/21 warfarin 8 mg PO SUTHFRSA 04/03/21 memantine [Namenda] 5 mg PO BID 04/08/21 tamsulosin [Flomax] 0.4 mg PO QHS 04/08/21 venlafaxine 75 mg PO DAILY 04/08/21 amoxicillin-pot clavulanate 875 mg PO BID #14 tab 04/09/21 Hospital Course Operations None Procedures None Summary of Care Provided Minutes Spent on Discharge: 35 Hospital Course: Per HPI: SHANDRA QUINTERO, is a 81 M who presents intractable epistaxis.? He presented on April 03, 2021 with epistaxis to the ER at that time he was found to be supratherapeutic on his INR and therefore packing was placed in his left nostril and he was discharged home with follow-up with ENT.? He was seen at the ENTs office today and they could not get his bleeding under control after removing the packing therefore sent him to the ER to have the packing replaced.? In the ER he was found to have an INR of 2.3.? They were able to get the packing in place however it was felt that because of how posterior the culprit bleed likely was, they recommended admission for ENT consultation and evaluation.? Now that he has packing in place he feels fine denies any lightheadedness or dizziness and does not feel any posterior nasal bleeding at this moment. Hospital Course: 1. [id number]-old male with a history of A. fib on Coumadin presented initially April 03, 2021 with left nare epistaxis. At that time his INR was supratherapeutic over 4 and he had packing placed. He was followed up with ENT and when they remove the packing his INR was still therapeutic and they could not control the bleeding so they sent him to the ER where he had more packing placed. His Coumadin was held as was his aspirin and he was seen by ENT who felt that he was okay to go home with the continued packing and to follow-up on April 15 to remove the packing. In the meantime he will need to hold his Coumadin and his aspirin until after the packing is removed and his epistaxis is under control. He will be discharged on antibiotics per request of the ENT in order to prevent TSS from the packing in place. I discussed with him the plan for discharge and he expressed understanding of the risks and benefits of going home and would like to go home today. 2. A. fib, hypertension, hyperlipidemia, CHF of unknown type, COPD, chronic hypoxia, gout, anxiety, depression, dementia are all chronic medical conditions which complicate his care. His home medications were continued where appropriate. Of note because he had the left packing in place his oxygen requirements did go up since he could not fit the nasal cannula in his nose appropriately. Physical Exam Const alert, oriented x3 and no apparent distress General Appearance: cooperative HEENT normocephalic and moist oral mucous membranes Eyes PERRL, EOMs intact bilaterally and conjunctivae normal Neck supple and no JVD Resp normal respiratory effort and clear to auscultation bilaterally Auscultation: Negative for crackles, rales, rhonchi or wheezes Cardio regular rate, S1 normal heart sound, S2 normal heart sound and no murmurs Rhythm: abnormal rhythm GI soft to palpation, non-tender and non-distended; Negative for hepatosplenomegaly Extremity no clubbing, cyanosis or edema Skin no rashes or lesions noted Neuro no focal motor deficits and no sensory deficits noted Psych affect normal ABG / Lab / Microbiology Data Result Diagrams: 04/09/21 06:20 04/09/21 06:20 Laboratory: Laboratory Results - last 24 hr 04/08/21 04/08/21 04/08/21 12:30 12:30 12:30 WBC 8.3 RBC 3.45 L Hgb 11.5 L Hct 35.7 L MCV 103.5 H MCH 33.3 H MCHC 32.2 RDW Std Deviation 68.9 H RDW Coeff of Natalia 18.6 H Plt Count 365 MPV 10.5 Immature Gran % (Auto) 0.700 Neut % (Auto) 70.8 H Lymph % (Auto) 12.9 L [place] % (Auto) 11.1 H Eos % (Auto) 4.0 Baso % (Auto) 0.5 Absolute Neuts (auto) 5.9 Absolute Lymphs (auto) 1.07 Nucleated RBC % 2.2 Polychromasia Anisocytosis 2+ Acanthocytes (Spur) PT 24.7 H INR 2.3 APTT 43.0 H Sodium 141 Potassium 3.3 L Chloride 105 Carbon Dioxide 30.0 Anion Gap 6 BUN 42 H Creatinine 2.50 H Estim Creat Clear Calc 22.42 Est GFR (MDRD) Af Amer 32 L Est GFR (MDRD) Non-Af 27 L BUN/Creatinine Ratio 16.8 Glucose 98 Calcium 9.2 Blood Type Antibody Screen 04/08/21 04/08/21 04/09/21 12:30 18:55 06:20 WBC RBC Hgb 11.5 L Hct 35.5 L MCV MCH MCHC RDW Std Deviation RDW Coeff of Natalia Plt Count MPV Immature Gran % (Auto) Neut % (Auto) Lymph % (Auto) [place] % (Auto) Eos % (Auto) Baso % (Auto) Absolute Neuts (auto) Absolute Lymphs (auto) Nucleated RBC % Polychromasia Anisocytosis Acanthocytes (Spur) PT INR APTT Sodium 141 Potassium 3.3 L Chloride 107 Carbon Dioxide 28.0 Anion Gap 6 BUN 42 H Creatinine 2.36 H Estim Creat Clear Calc 23.75 Est GFR (MDRD) Af Amer 34 L Est GFR (MDRD) Non-Af 28 L BUN/Creatinine Ratio 17.8 Glucose 102 Calcium 8.9 Blood Type A POSITIVE Antibody Screen NEGATIVE 04/09/21 04/09/21 06:20 06:20 WBC 8.0 RBC 3.19 L Hgb 10.6 L Hct 33.0 L MCV 103.4 H MCH 33.2 H MCHC 32.1 RDW Std Deviation 67.5 H RDW Coeff of Natalia 18.4 H Plt Count 347 MPV 10.9 Immature Gran % (Auto) 0.600 Neut % (Auto) 67.2 Lymph % (Auto) 15.9 L [place] % (Auto) 12.2 H Eos % (Auto) 3.5 Baso % (Auto) 0.6 Absolute Neuts (auto) 5.4 Absolute Lymphs (auto) 1.27 Nucleated RBC % 2.5 Polychromasia 1+ Anisocytosis 2+ Acanthocytes (Spur) 1+ PT 25.2 H INR 2.4 APTT Sodium Potassium Chloride Carbon Dioxide Anion Gap BUN Creatinine Estim Creat Clear Calc Est GFR (MDRD) Af Amer Est GFR (MDRD) Non-Af BUN/Creatinine Ratio Glucose Calcium Blood Type Antibody Screen D/C Instructions Discharge Diet: - (Cardiac) Discharge Activity: Return to Normal Activity Call your doctor if you observe: Fever of 101 or Higher, Shortness of breath, Dizziness, Fainting spells, Swelling in the ankles, Chest pain and Increased palpitations (irregular heartbeat) Meaningful Use Info Meaningful Use Diagnoses (Choose all that apply): None applicable Discharge Plan Admission Admit Date/Time: 04/08/21 13:20 Attending Provider: Pancho Meraz Primary Care Provider: Elen Barriga Consulting Providers: Seymour Phipps Instructions Patient Instructions: ED Epistaxis (Adult) Discharge Orders/Prescriptions Prescriptions: New amoxicillin-pot clavulanate 875-125 mg Tablet 875 mg PO BID Qty: 14 RF: 0 Continued melatonin 10 mg capsule 10 mg PO HS PRN (Reason: Sleep) RF: 0 donepezil 5 mg tablet 5 mg PO DAILY RF: 0 cholecalciferol (vitamin D3) 2,000 unit capsule 2,000 unit PO DAILY RF: 0 carvedilol 6.25 mg tablet 6.25 mg PO BID RF: 0 atorvastatin 80 mg tablet 80 mg PO QHS RF: 0 torsemide 20 mg tablet 20 mg PO BID RF: 0 febuxostat 40 mg tablet 40 mg PO DAILY RF: 0 diphenhydramine HCl [Allergy (diphenhydramine)] 25 mg tablet 25 mg PO QHS RF: 0 multivitamin Tablet 1 tab PO DAILY RF: 0 albuterol sulfate 90 mcg/actuation HFA aerosol inhaler 2 puff inhalation Q6H PRN (Reason: Shortness Of Breath) RF: 0 venlafaxine 75 mg capsule,extended release 24hr 75 mg PO DAILY RF: 0 tamsulosin [Flomax] 0.4 mg capsule 0.4 mg PO QHS RF: 0 memantine [Namenda] 5 mg tablet 5 mg PO BID RF: 0 (DME) Space Chamber with Medium Mask Spacer See Rx Instructions .ROUTE .MEDSUPPLY Qty: 1 RF: 1 hydroxyzine HCl 10 mg tablet 10 mg PO TID-QID PRN (Reason: anxiety) Qty: 360 RF: 3 Held warfarin 4 mg tablet 10 mg PO MOWEFR RF: 0 Hold Instructions: Resume on 04/15/21. Until packing removed by ENT and no longer bleeding aspirin 81 mg tablet,delayed release (DR/EC) 81 mg PO DAILY RF: 0 Hold Instructions: Resume on 04/15/21. Hold until packing removed by ENT and no longer having a nosebleed warfarin 4 mg Tablet 8 mg PO SUTHFRSA RF: 0 Hold Instructions: Resume on 04/15/21. Until packing removed by ENT and no longer bleeding Referrals / Follow Up: Seymour Phipps MD [STAFF PHYSICIAN] - 04/15/21 8:00 am Elen Barriga [Primary Care Provider] - Disposition Disposition (needs filled in before D/C Order can be placed): Home, self care Visit Charges OBSV E&M: 10769 Observation care discharge
== END 2021-04-09 10:45 | disposition home or self-care (01) ==
LOC: ED 13:26 → PCU 13:33
PROVIDERS: Admitting Provider Family Medicine; Emergency Provider Emergency Medicine; Visit Provider Family Medicine
DX: R04.0 Epistaxis (principal); I48.11 Longstanding persistent atrial fibrillation; Z79.01 Long term (current) use of anticoagulants; G30.9 Alzheimer's disease, unspecified; F02.80 Dementia in other diseases classified elsewhere, unspecified severity, without behavioral disturbance, psychotic disturbance, mood disturbance, and anxiety; N40.0 Benign prostatic hyperplasia without lower urinary tract symptoms; E11.65 Type 2 diabetes mellitus with hyperglycemia; E78.5 Hyperlipidemia, unspecified; F32.9 Major depressive disorder, single episode, unspecified; G47.30 Sleep apnea, unspecified; F41.9 Anxiety disorder, unspecified; K74.60 Unspecified cirrhosis of liver; M19.90 Unspecified osteoarthritis, unspecified site; I11.0 Hypertensive heart disease with heart failure; I50.9 Heart failure, unspecified; J44.9 Chronic obstructive pulmonary disease, unspecified; H91.93 Unspecified hearing loss, bilateral; Z79.899 Other long term (current) drug therapy; Z79.82 Long term (current) use of aspirin; Z99.81 Dependence on supplemental oxygen; Z87.891 Personal history of nicotine dependence; M10.9 Gout, unspecified; R79.1 Abnormal coagulation profile
CPT/HCPCS: 30905; 36415; 80048; 85014; 85018; 85025; 85610; 85730; 86850; 86900; 86901; 99218; 99285; A4216; G0378

== ENCOUNTER 2021-04-26 10:40 | Inpatient (IN) | payer OTHER, MEDICARE, SELFPAY ==
[2021-04-08 14:13] VITALS: BMI 37.6
[2021-04-26] VITALS (11 sets, daily range): BP systolic 104–143; BP diastolic 62–94; PULSE 85–114; RESP 15–18; TEMP 36.6–36.8; O2SAT 94–98; BMI 38.0; BMI 35.3
--- NOTE | 2021-04-26 11:05 | EKG12_ITS ---
Test Reason : GI BLEED Blood Pressure : / mmHG Vent. Rate : 096 BPM Atrial Rate : 093 BPM P-R Int : 000 ms QRS Dur : 120 ms QT Int : 370 ms P-R-T Axes : 000 058 016 degrees QTc Int : 467 ms Atrial fibrillation Right bundle branch block Abnormal ECG Confirmed by SHARONA DURAND, SÁNCHEZ ([id number]), editorial manager ELY RITCHIE ([id number]) on 05/01/2021 9:22:25 AM Referred By: MARGIE Confirmed By:SÁNCHEZ TABOR MD
--- NOTE | 2021-04-26 11:07 | ED.VIS.GI ---
HPI HPI - GI History of Present Illness Chief Complaint: GI Bleed Informant: patient Abdominal Pain/Flank Pain Onset: Today Narrative Narrative: Presents for evaluation of rectal bleeding after bowel movement today. States 2 bowel movements earlier small bowel movements. The third one with increasing straining when he noted bright red blood mixed with stools. No abdominal pain or lightheaded symptoms. He is on warfarin for history of chronic atrial fibrillation. States his stools are typically hard, he has bowel movements twice a day. Colonoscopy years ago at the [place]. Reports may be hemorrhoids, no polypectomies. Recent admission couple weeks ago for epistaxis, nasal packing has been removed he was restarted on warfarin INR checked 2 days ago with no known results. He has not restarted aspirin. Denies any coronary stent history or any referral vascular stent history. [facility] Medical History Alzheimer's dementia Anxiety Atrial fib/flutter, transient Atrial fibrillation status post cardioversion BPH (benign prostatic hyperplasia) Cirrhosis Depression Diabetes type 2, uncontrolled Edema, lower extremity Hearing loss, left Hearing loss, right Hyperlipidemia Hypertension Insomnia Kidney disease On home oxygen therapy Osteoarthritis Sleep apnea Home Medications atorvastatin 80 mg tablet 80 mg PO QHS 03/23/19 [History Last Taken 04/07/21] carvedilol 6.25 mg tablet 6.25 mg PO BID 03/23/19 [History Last Taken 04/07/21] cholecalciferol (vitamin D3) 50 mcg (2,000 unit) capsule 2,000 unit PO DAILY 03/23/19 [History Last Taken 04/07/21] donepezil 5 mg tablet 5 mg PO DAILY 03/23/19 [History Last Taken 04/07/21] melatonin 10 mg capsule 10 mg PO HS PRN 03/23/19 [History Last Taken 04/07/21] warfarin 4 mg tablet 10 mg PO MOWEFR 03/23/19 [History Last Taken 04/07/21] torsemide 20 mg tablet 20 mg PO BID tab 05/15/20 [History Last Taken 04/07/21] inhalat.spacing dev,med. mask #1 ea 01/24/21 [Rx Last Taken Unknown] albuterol sulfate 90 mcg/actuation aerosol inhaler 2 puff INHALATION Q6H PRN 03/21/21 [History Last Taken 04/08/21] aspirin 81 mg tablet,delayed release 81 mg PO DAILY 03/21/21 [History Last Taken 04/07/21] diphenhydramine HCl 25 mg tablet 25 mg PO QHS 03/21/21 [History Last Taken 04/07/21] febuxostat 40 mg tablet 40 mg PO DAILY 03/21/21 [History Last Taken 04/07/21] multivitamin 1 tab PO DAILY 03/21/21 [History Last Taken Unknown] hydroxyzine HCl 10 mg tablet 10 mg PO TID-QID PRN #360 tab 04/01/21 [Rx Last Taken 04/08/21] warfarin 8 mg PO SUTHFRSA 04/03/21 [History Last Taken 04/06/21] memantine [Namenda] 5 mg PO BID 04/08/21 [History Last Taken 04/07/21] tamsulosin [Flomax] 0.4 mg PO QHS 04/08/21 [History Last Taken 04/07/21] venlafaxine 75 mg PO DAILY 04/08/21 [History Last Taken 04/07/21] amoxicillin-pot clavulanate 875 mg PO BID #14 tab 04/09/21 [Rx Last Taken Unknown] Allergy/AdvReac Type Severity Reaction Status Date / Time No Known Allergies Allergy Verified 04/26/21 10:41 Family History Other Cancer Heart disease Hypertension Surgical History H/O splenectomy History of appendectomy History of nephrectomy, right Social History Smoking Status: Former smoker alcohol intake: never ROS ROS ED Constitutional Constitutional ED: Denies chills, fever(s) or sweats Eyes Eyes: Denies change in vision ENT ENT ED: Denies dysphagia or sore throat Cardiovascular Cardiovascular: Denies chest pain, leg edema, palpitations or racing heartbeat Respiratory/Chest Respiratory/Chest: Denies cough, dyspnea or dyspnea on exertion Gastrointestinal Gastrointestinal: Reports other Details: Bright red blood per rectum ; Denies abdominal pain, diarrhea, nausea or vomiting Genitourinary Genitourinary ED: Denies dysuria, hematuria or urinary frequency Musculoskeletal Musculoskeletal: Denies back pain, extremity pain or neck pain Integumentary Denies rash or wounds Neurologic Neurologic: Denies headache(s), paresthesias or weakness EXAM Physical Exam Const Vital Signs: 04/26/21 10:41 04/26/21 10:59 04/26/21 11:13 Temperature 98.1 F Temperature Source Temporal Pulse Rate 86 97 Respiratory Rate 18 15 Blood Pressure 104/62 Blood Pressure Mean 76 Pulse Ox 94 Oxygen Delivery Method Nasal Cannula Nasal Cannula Oxygen Flow Rate (L/min) 2 2 04/26/21 11:16 Temperature Temperature Source Pulse Rate Respiratory Rate Blood Pressure Blood Pressure Mean Pulse Ox Oxygen Delivery Method Nasal Cannula Oxygen Flow Rate (L/min) 2 Positive well nourished and well developed General Appearance ED: well developed and NAD HEENT Reports moist mucous membranes normocephalic and atraumatic Eyes PERRL, EOMs intact bilaterally and conjunctivae normal General Eye ED: Yes normal appearance of both eyes Neck no lymphadenopathy and supple General: Negative for tenderness Chest Wall Chest: Negative for tenderness Resp normal respiratory effort and normal air movement Effort and Inspection: symmetric chest movement; Negative for respiratory distress Cardio Cardio Narrative: Irregular with normal rate Peripheral Pulses: pulses 2+ throughout GI normal to inspection, nondistended, normoactive bowel sounds and non-tender Inspection: other Other Details: Rectal: No hemorrhoids, no fissures appreciated. Brown stools mixed with pink tinge liquid. Guaiac pending. Palpation: Negative for guarding or rebound tenderness present Back/Spine no CVA tenderness and no thoracic nor lumbar tenderness Extremity normal to inspection General Extremety ED: Negative for edema or tenderness General Extremity: Negative for edema Neuro oriented x3 and no sensory deficits noted Sensorium / Orientation: awake and alert Skin no rashes or lesions noted and no wounds MDM MDM MDM Narrative Medical decision making narrative: Patient nontoxic vital signs stable. Guaiac did return positive hemoglobin 11.1 up from 10.6 recently from his epistaxes admission. INR 1.7. Creatinine 2.25, chronic from patient's previous labs. EKG with rate controlled A. fib. With patient on warfarin I do feel he warrants admission to monitor for continued bleeding. Especially since there is no clear bleed from hemorrhoids or fissures. I did speak with on-call surgeon Dr. Valle, updated, he will follow in the hospital. He did recommend reversal of INR and clear liquids. Discussed with hospitalist, Dr. Baptiste updated on recommendations and patient's history. Will admit to PCU. Lab Data Labs: Laboratory Results - last 24 hr 04/26/21 04/26/21 04/26/21 10:59 10:59 10:59 WBC 7.1 RBC 3.33 L Hgb 11.1 L Hct 34.5 L MCV 103.6 H MCH 33.3 H MCHC 32.2 RDW Std Deviation 67.1 H RDW Coeff of Natalia 18.0 H Plt Count 445 MPV 10.4 Immature Gran % (Auto) 0.700 Neut % (Auto) 66.9 Lymph % (Auto) 14.4 L [place] % (Auto) 11.6 H Eos % (Auto) 5.6 H Baso % (Auto) 0.8 Absolute Neuts (auto) 4.8 Absolute Lymphs (auto) 1.03 Nucleated RBC % 0.4 Hypochromasia 1+ Anisocytosis 3+ Schistocytes 1+ PT 19.6 H INR 1.7 APTT 40.5 H Sodium 140 Potassium 3.3 L Chloride 104 Carbon Dioxide 28.0 Anion Gap 8 BUN 38 H Creatinine 2.25 H Estim Creat Clear Calc 24.91 Est GFR (MDRD) Af Amer 36 L Est GFR (MDRD) Non-Af 30 L BUN/Creatinine Ratio 16.9 Glucose 113 H Calcium 8.7 Blood Type Antibody Screen 04/26/21 10:59 WBC RBC Hgb Hct MCV MCH MCHC RDW Std Deviation RDW Coeff of Natalia Plt Count MPV Immature Gran % (Auto) Neut % (Auto) Lymph % (Auto) [place] % (Auto) Eos % (Auto) Baso % (Auto) Absolute Neuts (auto) Absolute Lymphs (auto) Nucleated RBC % Hypochromasia Anisocytosis Schistocytes PT INR APTT Sodium Potassium Chloride Carbon Dioxide Anion Gap BUN Creatinine Estim Creat Clear Calc Est GFR (MDRD) Af Amer Est GFR (MDRD) Non-Af BUN/Creatinine Ratio Glucose Calcium Blood Type A POSITIVE Antibody Screen NEGATIVE EKG Initial EKG: Attestation: I personally reviewed and interpreted this EKG as follows: Comments: Rate controlled atrial fibrillation rate of 96, no ST changes. Isolated T wave inversion in leads III. Right bundle branch block. Discharge Plan Triage Chief Complaint: GI Bleed ED Provider: Mal Espinoza Dx/Rx/DC Orders Clinical Impression: Atrial fibrillation, Chronic renal insufficiency, stage IV (severe), Acute GI bleeding Prescriptions: No Action melatonin 10 mg capsule 10 mg PO HS PRN (Reason: Sleep) RF: 0 donepezil 5 mg tablet 5 mg PO DAILY RF: 0 cholecalciferol (vitamin D3) 2,000 unit capsule 2,000 unit PO DAILY RF: 0 warfarin 4 mg tablet 10 mg PO MOWEFR RF: 0 Hold Instructions: Resume on 04/16/21. carvedilol 6.25 mg tablet 6.25 mg PO BID RF: 0 atorvastatin 80 mg tablet 80 mg PO QHS RF: 0 torsemide 20 mg tablet 20 mg PO BID RF: 0 febuxostat 40 mg tablet 40 mg PO DAILY RF: 0 aspirin 81 mg tablet,delayed release (DR/EC) 81 mg PO DAILY RF: 0 Hold Instructions: Resume on 04/16/21. diphenhydramine HCl [Allergy (diphenhydramine)] 25 mg tablet 25 mg PO QHS RF: 0 multivitamin Tablet 1 tab PO DAILY RF: 0 albuterol sulfate 90 mcg/actuation HFA aerosol inhaler 2 puff inhalation Q6H PRN (Reason: Shortness Of Breath) RF: 0 warfarin 4 mg Tablet 8 mg PO SUTHFR RF: 0 Hold Instructions: Resume on 04/16/21. venlafaxine 75 mg capsule,extended release 24hr 75 mg PO DAILY RF: 0 tamsulosin [Flomax] 0.4 mg capsule 0.4 mg PO QHS RF: 0 memantine [Namenda] 5 mg tablet 5 mg PO BID RF: 0 amoxicillin-pot clavulanate 875-125 mg Tablet 875 mg PO BID Qty: 14 RF: 0 (DME) Space Chamber with Medium Mask Spacer See Rx Instructions .ROUTE .MEDSUPPLY Qty: 1 RF: 1 hydroxyzine HCl 10 mg tablet 10 mg PO TID-QID PRN (Reason: anxiety) Qty: 360 RF: 3 Primary Care Provider: Elen Barriga Referrals: Elen Barriga [Primary Care Provider] - Disposition Disposition: Acute Care [facility]
[2021-04-26 11:12] LABS: Absolute Lymphocyte Count 1.03 X10^3/uL (0.83-4.51); Absolute Neutrophil Count 4.8 X10^3/uL (2.0-7.7); Basophil# 0.06 X10^3/uL; Basophil% 0.8 % (0-1); Eosinophils% 5.6 % (0-5); Hematocrit 34.5 % (40-54); Hemoglobin 11.1 g/dL (13.0-16.5); Lymphocyte # 1.03 X10^3/ul (0.83-4.51); Lymphocyte % 14.4 % (19-41); Mean Corp Hgb Conc 32.2 g/dL (32-36); Mean Corpuscular Hgb 33.3 pg (27.0-32.0); Mean Corpuscular Volume 103.6 fL (80-94); Mean Platelet Vol. 10.4 fl (6.2-12.0); Monocyte# 0.83 X10^3/uL; Monocyte% 11.6 % (0-10); NRBC Flagged by Analyzer 0.4 % (0-5); Neutrophil # 4.76 X10^3/uL (2.7-7.7); Neutrophil % 66.9 % (47-70); POSITIVE MORPHOLOGY YES; Platelet Count 445 K/mm3 (150-450); RBC Distribution Width SD 67.1 fl (35.1-43.9); Red Blood Count 3.33 M/mm3 (4.6-6.2); White Blood Count 7.1 K/mm3 (4.4-11.0)
[2021-04-26 11:15] LABS: Differential Indicated SCAN CRITERIA MET
[2021-04-26 11:20] LABS: International Normalized Ratio 1.7; Prothrombin Time (Protime)PT. 19.6 SECONDS (11.7-14.9)
[2021-04-26 11:22] LABS: Partial Thromboplast Time 40.5 Seconds (24.1-36.2)
[2021-04-26 11:38] LABS: Anisocytosis 3+; Schistocytes 1+
[2021-04-26 11:39] LABS: Hypochromasia 1+
[2021-04-26 11:53] LABS: Anion Gap 8 (5-15); BUN 38 mg/dL (7-18); BUN/Creat Ratio 16.9 RATIO (10-20); Calcium,Total 8.7 mg/dL (8.5-10.1); Chloride 104 mmol/L (98-107); Creatinine, Serum 2.25 mg/dL (0.70-1.30); EST Glomerular Filtration Rate 30 mL/min (>60); Est Glom Filt Rate - Afr Amer 36 mL/min (>60); Estimated Creatinine Clearance 24.91 ml/min; Glucose 113 mg/dL (74-106); Potassium 3.3 mmol/L (3.5-5.1); Sodium Level 140 mmol/L (136-145)
--- NOTE | 2021-04-26 12:59 | HP.PCM.HOS_ITS ---
[facility] - General General Date of Admission: 04/26/21 Date of Service: 04/26/21 Chief Complaint: Rectal bleeding. [facility] Narrative SHANDRA QUINTERO, is a 81 M with past medical history as mentioned below presented to the emergency room because of rectal bleeding. Symptoms started this morning after patient had a bowel movement, started having bright red blood per rectum, small amount, mixed with stool and no associated symptoms. He mentioned that he had small amount of rectal bleed several weeks ago, was small amount and did not seek medical attention. He denied abdominal pain, nausea or vomiting. He denied hemoptysis, hematemesis or hematuria. He does have a history of chronic A. fib and he has been on Coumadin. He was admitted 2 weeks ago for epistaxis, was evaluated by PET after nasal packing and he was instructed to stop taking C oumadin and aspirin. Patient started taking Coumadin back few days ago. In the emergency department, his vital signs were stable, was on oxygen at 2 L which is his baseline. Routine blood work was remarkable for hemoglobin of 11.1 g/dL, potassium is 3.3, BUN is 58, creatinine is 2.25. INR was 1.7. Patient is being admitted for acute GI bleed for evaluation. [facility] Medical History (Updated 04/26/21 @ 13:[address] Lin Baptiste MD) Alzheimer's dementia Anxiety Atrial fibrillation status post cardioversion BPH (benign prostatic hyperplasia) Cirrhosis Depression Diabetes type 2, uncontrolled Hearing loss, left Hearing loss, right Hyperlipidemia Hypertension Insomnia Kidney disease On home oxygen therapy Osteoarthritis Sleep apnea Home Medications atorvastatin 80 mg tablet 80 mg PO QHS 03/23/19 [History Last Taken 04/07/21] carvedilol 6.25 mg tablet 6.25 mg PO BID 03/23/19 [History Last Taken 04/07/21] cholecalciferol (vitamin D3) 50 mcg (2,000 unit) capsule 2,000 unit PO DAILY 03/23/19 [History Last Taken 04/07/21] donepezil 5 mg tablet 5 mg PO DAILY 03/23/19 [History Last Taken 04/07/21] melatonin 10 mg capsule 10 mg PO HS PRN 03/23/19 [History Last Taken 04/07/21] warfarin 4 mg tablet 10 mg PO MOFR 03/23/19 [History Last Taken 04/07/21] torsemide 20 mg tablet 20 mg PO BID tab 05/15/20 [History Last Taken 04/07/21] inhalat.spacing dev,med. mask #1 ea 01/24/21 [Rx Last Taken Unknown] albuterol sulfate 90 mcg/actuation aerosol inhaler 2 puff INHALATION Q6H PRN 03/21/21 [History Last Taken 04/08/21] aspirin 81 mg tablet,delayed release 81 mg PO DAILY 03/21/21 [History Last Taken 04/07/21] diphenhydramine HCl 25 mg tablet 25 mg PO QHS 03/21/21 [History Last Taken 04/07/21] febuxostat 40 mg tablet 40 mg PO DAILY 03/21/21 [History Last Taken 04/07/21] multivitamin 1 tab PO DAILY 03/21/21 [History Last Taken Unknown] hydroxyzine HCl 10 mg tablet 10 mg PO TID-QID PRN #360 tab 04/01/21 [Rx Last Taken 04/08/21] warfarin 8 mg PO SUTUWETHSA 04/03/21 [History Last Taken 04/06/21] memantine [Namenda] 5 mg PO BID 04/08/21 [History Last Taken 04/07/21] tamsulosin [Flomax] 0.4 mg PO QHS 04/08/21 [History Last Taken 04/07/21] venlafaxine 75 mg PO DAILY 04/08/21 [History Last Taken 04/07/21] Allergy/AdvReac Type Severity Reaction Status Date / Time No Known Allergies Allergy Verified 04/26/21 10:41 Family History Other Cancer Heart disease Hypertension Surgical History H/O splenectomy History of appendectomy History of nephrectomy, right Social History Smoking Status: Former smoker alcohol intake: never ROS Constitutional Constitutional: Denies anorexia, chills, fatigue, fever(s) or malaise Eyes Eyes: Denies blurry vision, change in eye color, change in vision, double vision or eye pain ENT HEENT: Denies ear discharge, ear pain, epistaxis, headache(s), nasal congestion, post nasal drip or sore throat Cardiovascular Cardiovascular: Denies chest pain, edema, lightheadedness, orthopnea, palpitations, paroxysmal nocturnal dyspnea or syncope Respiratory/Chest Respiratory/Chest: Reports dyspnea; Denies cough, hemoptysis, productive cough, shortness of breath at rest, shortness of breath with exertion or wheezing Gastrointestinal Gastrointestinal: Reports hematochezia; Denies abdominal pain, constipation, diarrhea, hematemesis, melena, nausea or vomiting Genitourinary Genitourinary: Denies burning urination, dysuria, hematuria, urinary hesitancy or urinary urgency Musculoskeletal Musculoskeletal: Denies arthralgias, back pain, joint pain, joint swelling, myalgias or neck pain Neurologic Neurologic: Denies confusion, dizziness, focal weakness, headache(s), numbness, paresthesias, seizures, tingling, tremor(s) or vertigo Psychiatric Psychiatric: Denies anxiety, depression, hallucinations, homicidal ideation or suicidal ideation Endocrine Endocrinology: Denies change in body appearance, cold intolerance, heat intolerance, polydipsia or polyuria Hematologic/Lymphatic Hematologic/Lymphatic: Denies easy bleeding, easy bruising or lymphadenopathy Allergic/Immunologic Allergic/Immunologic: Denies itchy eyes, rhinitis, throat swelling, tongue swelling, hives, urticaria or wheezing Vital Signs Vital Signs Vital Signs: 04/26/21 10:41 04/26/21 10:59 04/26/21 11:13 Temperature 98.1 F Temperature Source Temporal Pulse Rate 86 97 Respiratory Rate 18 15 Blood Pressure 104/62 Blood Pressure Mean 76 Pulse Ox 94 Oxygen Delivery Method Nasal Cannula Nasal Cannula Oxygen Flow Rate (L/min) 2 2 04/26/21 11:16 04/26/21 12:18 Temperature 97.8 F Temperature Source Temporal Pulse Rate 85 Respiratory Rate 16 Blood Pressure 142/94 H Blood Pressure Mean 110 Pulse Ox 96 Oxygen Delivery Method Nasal Cannula Nasal Cannula Oxygen Flow Rate (L/min) 2 2 Weight Weight: 250 lb Body Mass Index (BMI) 38.0 Physical Exam Const alert, oriented x3 and no limitations Constitutional Narrative: Mildly short of breath, on oxygen. General Appearance: cooperative HEENT normocephalic, head/scalp atraumatic, external ears normal, external nose normal and moist oral mucous membranes Eyes PERRL, EOMs intact bilaterally, conjunctivae normal and no scleral icterus Neck no lymphadenopathy, supple, no meningeal signs and no JVD Lymph Lymphatic: no lymphadenopathy noted Resp normal respiratory effort and normal air movement Resp Narrative: Diminished breath sounds bilateral, otherwise clear. Auscultation: Negative for crackles, rales, rhonchi or wheezes Cardio S1 normal heart sound, S2 normal heart sound, no murmurs and no JVD Cardio Narrative: Irregular rate and rhythm. GI normal to inspection, nondistended, normoactive bowel sounds, soft to palpation, non-tender and non-distended; Negative for hepatosplenomegaly GI Narrative: Obese. Extremity normal to inspection and full ROM Extremity Narrative: ++ Edema, no clubbing or cyanosis. Skin no rashes or lesions noted, no wounds and no petechiae Neuro oriented x3, CN's II-XII intact bilaterally and moves all extremities Sensorium / Orientation: alert Speech: speech normal Motor Exam: strength 5/5 throughout Psych mental status grossly normal and affect normal Appearance: appropriate Results Lab / Micro Data Result Diagrams: 04/26/21 10:59 04/26/21 10:59 Labs: Laboratory Results - last 24 hr 04/26/21 04/26/21 04/26/21 10:59 10:59 10:59 WBC 7.1 RBC 3.33 L Hgb 11.1 L Hct 34.5 L MCV 103.6 H MCH 33.3 H MCHC 32.2 RDW Std Deviation 67.1 H RDW Coeff of Natalia 18.0 H Plt Count 445 MPV 10.4 Immature Gran % (Auto) 0.700 Neut % (Auto) 66.9 Lymph % (Auto) 14.4 L [place] % (Auto) 11.6 H Eos % (Auto) 5.6 H Baso % (Auto) 0.8 Absolute Neuts (auto) 4.8 Absolute Lymphs (auto) 1.03 Nucleated RBC % 0.4 Hypochromasia 1+ Anisocytosis 3+ Schistocytes 1+ PT 19.6 H INR 1.7 APTT 40.5 H Sodium 140 Potassium 3.3 L Chloride 104 Carbon Dioxide 28.0 Anion Gap 8 BUN 38 H Creatinine 2.25 H Estim Creat Clear Calc 24.91 Est GFR (MDRD) Af Amer 36 L Est GFR (MDRD) Non-Af 30 L BUN/Creatinine Ratio 16.9 Glucose 113 H Calcium 8.7 Blood Type Antibody Screen 04/26/21 10:59 WBC RBC Hgb Hct MCV MCH MCHC RDW Std Deviation RDW Coeff of Natalia Plt Count MPV Immature Gran % (Auto) Neut % (Auto) Lymph % (Auto) [place] % (Auto) Eos % (Auto) Baso % (Auto) Absolute Neuts (auto) Absolute Lymphs (auto) Nucleated RBC % Hypochromasia Anisocytosis Schistocytes PT INR APTT Sodium Potassium Chloride Carbon Dioxide Anion Gap BUN Creatinine Estim Creat Clear Calc Est GFR (MDRD) Af Amer Est GFR (MDRD) Non-Af BUN/Creatinine Ratio Glucose Calcium Blood Type A POSITIVE Antibody Screen NEGATIVE Micro: Microbiology 04/26/21 11:15 Stool Occult Blood (RICO) - Final Stool Occult Blood Positive Assessment & Plan Assessment/Plan (1) Acute GI bleeding: (2) BPH (benign prostatic hyperplasia): QUALIFIERS: Lower urinary tract symptom presence: symptoms absent Qualified Code(s): N40.0 - Benign prostatic hyperplasia without lower urinary tract symptoms (3) Atrial fibrillation: QUALIFIERS: Atrial fibrillation type: longstanding persistent Q ualified Code(s): I48.11 - Longstanding persistent atrial fibrillation (4) Chronic kidney disease, stage IV (severe): (5) Chronic respiratory failure: (6) Depression: QUALIFIERS: Depression Type: major depressive disorder Major depression recurrence: recurrent Active/Remission status: in full remission Qualified Code(s): F33.42 - Major depressive disorder, recurrent, in full remission PLAN: This is an 81 years old male patient presented to the emergency room because of rectal bleeding, being admitted for acute GI bleed for evaluation. #1 GI bleed: Hemoglobin and hematocrit are stable at baseline. Vital signs are stable. INR is 1.7. Platelet count is normal. Plan: Admit to PCU, cardiac monitoring, Tylenol as needed, Zofran as needed, start IV Protonix twice daily, hold aspirin and Coumadin, H&H every 8 hours x3, keep on clear liquids, general surgery consult, repeat CBC and BMP tomorrow morning, PT OT evaluation and treatment. #2 chronic atrial fibrillation: Heart rate stable, continue Coreg for rate control, hold Coumadin for now, repeat INR tomorrow morning. #3 stage IV chronic kidney disease: Baseline creatinine has been around 2 to 2.5 mg deciliter, admission creatinine is 2.25, stable at baseline. Plan to monitor. #5 chronic respiratory failure: On home oxygen at 2 L, currently on 2 L at baseline. #6 benign prostatic hypertrophy: Continue Flomax. #7 depression: Continue venlafaxine and melatonin. #8 dementia: Stable, continue Namenda and donepezil. #9 DVT prophylaxis: SCDs, INR is 1.7. This note was generated with [employer] dictation software. It may contain incorrect words, spelling, and punctuation that were not noted in checking the note before signing. Charges/Coding Visit Charges Inpatient E&M: 62671 Init Hosp L2
[2021-04-26] MEDS: Potassium Chloride 10mEq/100mL 10 MEQ/100 ML IV.SOLN. 100 MEQ IV BOLUS ×2 (13:34→15:47)
--- NOTE | 2021-04-26 13:57 | EX.PCM.CON.S ---
Assessment & Plan Assessment/Plan (1) Acute GI bleeding: PLAN: Patient reports he had bright red blood per rectum this morning. He says this happened after straining hard to have a bowel movement. He says this has not happened in the past. He reports his last colonoscopy was 5 years ago and was normal. He has no abdominal pain. I recommended that the patient have colonoscopy to elucidate the cause of GI bleed but the patient believes this is hemorrhoidal in due to straining and he would like to hold off at this time. He is agreeable to doing it as an outpatient. I recommend that the patient stay on clear liquids today and see if he bleeds any further. If there is no further bleeding he may start a regular diet tomorrow and follow-up as an outpatient for an outpatient colonoscopy. If the patient does have ongoing bleeding I would recommend having his colonoscopy done as an inpatient. Continue checking hemoglobin to ensure they are stable and clear liquid diet today and advance to regular tomorrow if no further bleeding. Baljit Valle MD Pager: [facility] [address] [place] [address], [address] [place] [address] Office: HPI Consult Data Date of Consult: 04/26/21 HPI Narrative HPI Narrative: SHANDRA QUINTERO, is a 81 M who presents with GI bleeding. Patient reports this GI bleeding started this morning. He says that he had 3 bowel movements this morning and the last 20 was straining quite a bit. This is never happened in the past. He says his last colonoscopy was about 5 years ago and was normal. Patient has no rectal pain or abdominal pain. [facility] Medical History (Updated 04/26/21 @ 13:[address] Lin Baptiste MD) Alzheimer's dementia Anxiety Atrial fibrillation status post cardioversion BPH (benign prostatic hyperplasia) Cirrhosis Depression Diabetes type 2, uncontrolled Hearing loss, left Hearing loss, right Hyperlipidemia Hypertension Insomnia Kidney disease On home oxygen therapy Osteoarthritis Sleep apnea Home Medications atorvastatin 80 mg tablet 80 mg PO QHS 03/23/19 [History Last Taken 04/07/21] carvedilol 6.25 mg tablet 6.25 mg PO BID 03/23/19 [History Last Taken 04/07/21] cholecalciferol (vitamin D3) 50 mcg (2,000 unit) capsule 2,000 unit PO DAILY 03/23/19 [History Last Taken 04/07/21] donepezil 5 mg tablet 5 mg PO DAILY 03/23/19 [History Last Taken 04/07/21] melatonin 10 mg capsule 10 mg PO HS PRN 03/23/19 [History Last Taken 04/07/21] warfarin 4 mg tablet 10 mg PO MOFR 03/23/19 [History Last Taken 04/07/21] torsemide 20 mg tablet 20 mg PO BID tab 05/15/20 [History Last Taken 04/07/21] inhalat.spacing dev,med. mask #1 ea 01/24/21 [Rx Last Taken Unknown] albuterol sulfate 90 mcg/actuation aerosol inhaler 2 puff INHALATION Q6H PRN 03/21/21 [History Last Taken 04/08/21] aspirin 81 mg tablet,delayed release 81 mg PO DAILY 03/21/21 [History Last Taken 04/07/21] diphenhydramine HCl 25 mg tablet 25 mg PO QHS 03/21/21 [History Last Taken 04/07/21] febuxostat 40 mg tablet 40 mg PO DAILY 03/21/21 [History Last Taken 04/07/21] multivitamin 1 tab PO DAILY 03/21/21 [History Last Taken Unknown] hydroxyzine HCl 10 mg tablet 10 mg PO TID-QID PRN #360 tab 04/01/21 [Rx Last Taken 04/08/21] warfarin 8 mg PO SUTUWETHSA 04/03/21 [History Last Taken 04/06/21] memantine [Namenda] 5 mg PO BID 04/08/21 [History Last Taken 04/07/21] tamsulosin [Flomax] 0.4 mg PO QHS 04/08/21 [History Last Taken 04/07/21] venlafaxine 75 mg PO DAILY 04/08/21 [History Last Taken 04/07/21] Allergy/AdvReac Type Severity Reaction Status Date / Time No Known Allergies Allergy Verified 04/26/21 10:41 Family History Other Cancer Heart disease Hypertension Surgical History H/O splenectomy History of appendectomy History of nephrectomy, right Social History Smoking Status: Former smoker alcohol intake: never ROS Constitutional Constitutional: Denies anorexia or fatigue Eyes Eyes: Denies blurry vision ENT HEENT: Denies dysphagia Cardiovascular Cardiovascular: Denies chest pain Respiratory/Chest Respiratory/Chest: Denies cough Gastrointestinal Gastrointestinal: Reports rectal bleeding; Denies abdominal pain, constipation, diarrhea, hematemesis, melena, nausea or vomiting Genitourinary Genitourinary: Denies change in urinary stream Musculoskeletal Musculoskeletal: Denies abnormal gait Integumentary Integumentary: Denies jaundice Neurologic Neurologic: Denies dizziness Psychiatric Psychiatric: Denies anxiety Physical Exam Const alert and no apparent distress General Appearance: cooperative Exam Limitations: no limitations HEENT normocephalic Eyes PERRL Neck full ROM Resp normal respiratory effort Cardio Rate: regular rate Rhythm: regular rhythm GI soft to palpation, non-tender and non-distended Lab / Micro Data Result Diagrams: 04/26/21 10:59 04/26/21 10:59 Labs: Laboratory Results - last 24 hr 04/26/21 04/26/21 04/26/21 10:59 10:59 10:59 WBC 7.1 RBC 3.33 L Hgb 11.1 L Hct 34.5 L MCV 103.6 H MCH 33.3 H MCHC 32.2 RDW Std Deviation 67.1 H RDW Coeff of Natalia 18.0 H Plt Count 445 MPV 10.4 Immature Gran % (Auto) 0.700 Neut % (Auto) 66.9 Lymph % (Auto) 14.4 L [place] % (Auto) 11.6 H Eos % (Auto) 5.6 H Baso % (Auto) 0.8 Absolute Neuts (auto) 4.8 Absolute Lymphs (auto) 1.03 Nucleated RBC % 0.4 Hypochromasia 1+ Anisocytosis 3+ Schistocytes 1+ PT 19.6 H INR 1.7 APTT 40.5 H Sodium 140 Potassium 3.3 L Chloride 104 Carbon Dioxide 28.0 Anion Gap 8 BUN 38 H Creatinine 2.25 H Estim Creat Clear Calc 24.91 Est GFR (MDRD) Af Amer 36 L Est GFR (MDRD) Non-Af 30 L BUN/Creatinine Ratio 16.9 Glucose 113 H Calcium 8.7 Blood Type Antibody Screen 04/26/21 10:59 WBC RBC Hgb Hct MCV MCH MCHC RDW Std Deviation RDW Coeff of Natalia Plt Count MPV Immature Gran % (Auto) Neut % (Auto) Lymph % (Auto) [place] % (Auto) Eos % (Auto) Baso % (Auto) Absolute Neuts (auto) Absolute Lymphs (auto) Nucleated RBC % Hypochromasia Anisocytosis Schistocytes PT INR APTT Sodium Potassium Chloride Carbon Dioxide Anion Gap BUN Creatinine Estim Creat Clear Calc Est GFR (MDRD) Af Amer Est GFR (MDRD) Non-Af BUN/Creatinine Ratio Glucose Calcium Blood Type A POSITIVE Antibody Screen NEGATIVE Micro: Microbiology 04/26/21 11:15 Stool Occult Blood (RICO) - Final Stool Occult Blood Positive
--- NOTE | 2021-04-26 14:40 | CASEMGMT ---
[employer] Face to Face with patient for initial transition planning/care coordination assessment. RN MERT introduced self and role at [facility]. Patient lying in bed, alert and oriented. Patient willing to participate in assessment and is able to answer all questions appropriately. Care providers, pharmacy, and demographics verified. Patient wishes to discharge home, denies need for home health at this time. Patient states he has no further needs or concerns at this time. CM to follow for discharge planning needs that may arise. PCP: Linus Specialists: Lina, supervisor slashing department; Ravindra, armature coil winder Preferred Pharmacy: [facility] [place] Insurance: [facility] Prescription Benefit: yes Living Will/HPOA: none LNOK: Living Arrangements: Patient lives with in a 2 story home with bed and bath setup on first floor. Patient states he has 2 steps and railing to enter the home. Patient states he is independent at home. Transportation: self, DME/HHC: patient states he has shower chair, cane, lift chair, oxygen with portable concentrator at 2 lpm, patient could not recall DME company for oxygen supplier. Patient denies previous HHC. Disposition Plan: Patient to discharge home with family support and follow-up plans in place. Deisy STEWARD, RN, CM
[2021-04-26] MEDS: Furosemide 40 MG Tablet PO (18:45)
[2021-04-26 19:48] LABS: Hematocrit 37.2 % (40-54); Hemoglobin 11.8 g/dL (13.0-16.5)
[2021-04-26] MEDS: Memantine Hydrochloride 5 MG Tablet PO (22:50)
[2021-04-26] MEDS: Carvedilol 6.25 MG Tablet PO (22:50)
[2021-04-26] MEDS: DiphenhydrAMINE 25 MG Capsule PO (22:50)
[2021-04-26] MEDS: Tamsulosin HCl 0.4 MG Capsule PO (22:50)
[2021-04-26] MEDS: Atorvastatin Calcium 80 MG Tablet PO (22:50)
[2021-04-27 03:05] VITALS: PULSE 97
[2021-04-27 03:11] VITALS: BP 107/80; PULSE 89; RESP 18; TEMP 36.6; O2SAT 95
[2021-04-27 05:16] LABS: Absolute Lymphocyte Count 1.06 X10^3/uL (0.83-4.51); Absolute Neutrophil Count 5.2 X10^3/uL (2.0-7.7); Basophil# 0.06 X10^3/uL; Basophil% 0.8 % (0-1); Eosinophil# 0.37 X10^3/uL; Eosinophils% 4.8 % (0-5); Hemoglobin 10.9 g/dL (13.0-16.5); Lymphocyte # 1.06 X10^3/ul (0.83-4.51); Lymphocyte % 13.6 % (19-41); Mean Corp Hgb Conc 32.1 g/dL (32-36); Mean Platelet Vol. 10.4 fl (6.2-12.0); Monocyte% 12.9 % (0-10); NRBC Flagged by Analyzer 0 % (0-5); Neutrophil # 5.23 X10^3/uL (2.7-7.7); Neutrophil % 67.3 % (47-70); POSITIVE MORPHOLOGY YES; Platelet Count 462 K/mm3 (150-450); RBC Distribution Width CV 17.8 % (11.6-14.6); White Blood Count 7.8 K/mm3 (4.4-11.0)
[2021-04-27] MEDS: 0.9% Saline Lock 10 ML Syringe IV (05:17)
[2021-04-27 05:23] LABS: Differential Indicated SCAN CRITERIA MET
[2021-04-27 05:40] LABS: Anion Gap 5 (5-15); BUN 34 mg/dL (7-18); BUN/Creat Ratio 17.4 RATIO (10-20); Calcium,Total 8.9 mg/dL (8.5-10.1); Chloride 105 mmol/L (98-107); Creatinine, Serum 1.95 mg/dL (0.70-1.30); EST Glomerular Filtration Rate 35 mL/min (>60); Est Glom Filt Rate - Afr Amer 43 mL/min (>60); Estimated Creatinine Clearance 30.68 ml/min; Glucose 94 mg/dL (74-106); Potassium 3.9 mmol/L (3.5-5.1); Sodium Level 140 mmol/L (136-145)
[2021-04-27 06:16] LABS: Anisocytosis 1+
[2021-04-27 06:17] LABS: Acanthocytes RARE; Schistocytes RARE; Target Cells 1+
[2021-04-27 06:19] LABS: International Normalized Ratio 1.9; Prothrombin Time (Protime)PT. 21.2 SECONDS (11.7-14.9)
[2021-04-27 07:30] VITALS: O2SAT 95
[2021-04-27 07:36] VITALS: PULSE 108
--- NOTE | 2021-04-27 07:50 | PN.SURG_ITS ---
Subjective Subjective The patient reports he had a bowel movement yesterday which was brown with no blood in it. The patient is not having any abdominal pain or nausea or vomiting. Objective Data Objective Data Vital Signs: Vital Signs Temp Pulse Resp BP Pulse Ox 97.8 F 89 18 107/80 95 04/27/21 03:11 04/27/21 03:11 04/27/21 03:11 04/27/21 03:11 04/27/21 07:30 Oxygen Flow Rate (L/min) 2 Oxygen Delivery Method Nasal Cannula Weight: 246 lb 5.394 oz Body Mass Index (BMI) 35.3 Intake & Output: Intake and Output for Last 24 Hours 04/25/21 04/26/21 04/27/21 23:59 23:59 23:59 Intake Total 1510 / 1510 Output Total 500 / 500 250 / 250 Balance 1010 / 1010 -250 / -250 Lab / Micro Data Result Diagrams: 04/27/21 04:50 04/27/21 04:50 Labs: Laboratory Results - last 24 hr 04/26/21 04/26/21 04/26/21 10:59 10:59 10:59 WBC 7.1 RBC 3.33 L Hgb 11.1 L Hct 34.5 L MCV 103.6 H MCH 33.3 H MCHC 32.2 RDW Std Deviation 67.1 H RDW Coeff of Natalia 18.0 H Plt Count 445 MPV 10.4 Immature Gran % (Auto) 0.700 Neut % (Auto) 66.9 Lymph % (Auto) 14.4 L [place] % (Auto) 11.6 H Eos % (Auto) 5.6 H Baso % (Auto) 0.8 Absolute Neuts (auto) 4.8 Absolute Lymphs (auto) 1.03 Nucleated RBC % 0.4 Hypochromasia 1+ Anisocytosis 3+ Target Cells Acanthocytes (Spur) Schistocytes 1+ PT 19.6 H INR 1.7 APTT 40.5 H Sodium 140 Potassium 3.3 L Chloride 104 Carbon Dioxide 28.0 Anion Gap 8 BUN 38 H Creatinine 2.25 H Estim Creat Clear Calc 24.91 Est GFR (MDRD) Af Amer 36 L Est GFR (MDRD) Non-Af 30 L BUN/Creatinine Ratio 16.9 Glucose 113 H Calcium 8.7 Blood Type Antibody Screen 04/26/21 04/26/21 04/27/21 10:59 19:40 04:50 WBC 7.8 RBC 3.30 L Hgb 11.8 L 10.9 L Hct 37.2 L 34.0 L MCV 103.0 H MCH 33.0 H MCHC 32.1 RDW Std Deviation 66.0 H RDW Coeff of Natalia 17.8 H Plt Count 462 H MPV 10.4 Immature Gran % (Auto) 0.600 Neut % (Auto) 67.3 Lymph % (Auto) 13.6 L [place] % (Auto) 12.9 H Eos % (Auto) 4.8 Baso % (Auto) 0.8 Absolute Neuts (auto) 5.2 Absolute Lymphs (auto) 1.06 Nucleated RBC % 0 Hypochromasia Anisocytosis 1+ Target Cells 1+ Acanthocytes (Spur) RARE Schistocytes RARE PT INR APTT Sodium Potassium Chloride Carbon Dioxide Anion Gap BUN Creatinine Estim Creat Clear Calc Est GFR (MDRD) Af Amer Est GFR (MDRD) Non-Af BUN/Creatinine Ratio Glucose Calcium Blood Type A POSITIVE Antibody Screen NEGATIVE 04/27/21 04/27/21 04:50 04:50 WBC RBC Hgb Hct MCV MCH MCHC RDW Std Deviation RDW Coeff of Natalia Plt Count MPV Immature Gran % (Auto) Neut % (Auto) Lymph % (Auto) [place] % (Auto) Eos % (Auto) Baso % (Auto) Absolute Neuts (auto) Absolute Lymphs (auto) Nucleated RBC % Hypochromasia Anisocytosis Target Cells Acanthocytes (Spur) Schistocytes PT 21.2 H INR 1.9 APTT Sodium 140 Potassium 3.9 Chloride 105 Carbon Dioxide 30.0 Anion Gap 5 BUN 34 H Creatinine 1.95 H Estim Creat Clear Calc 30.68 Est GFR (MDRD) Af Amer 43 L Est GFR (MDRD) Non-Af 35 L BUN/Creatinine Ratio 17.4 Glucose 94 Calcium 8.9 Blood Type Antibody Screen Micro: Microbiology 04/26/21 11:15 Stool Stool Occult Blood (RICO) - Final Occult Blood Positive Physical Exam Const oriented x3 and no apparent distress Resp normal respiratory effort Cardio regular rate and regular rhythm GI normal to inspection, nondistended, normoactive bowel sounds Assessment & Plan Assessment/Plan (1) Acute GI bleeding: PLAN: Patient had normal bowel movement yesterday with no blood. He would like to have his colonoscopy done as an outpatient. I did provide him with my card and I instructed her to follow-up with me. At this point the patient may resume his Coumadin as it is likely hemorrhoidal bleeding and has stopped. I will perform a colonoscopy as outpatient once the patient follows up. Baljit Valle MD Pager: [facility] [address] [place] [address], [address] [place] [address] Office:
--- NOTE | 2021-04-27 08:11 | PCM.DC ---
Discharge Instructions Diet Discharge Diet: Low fat / Low cholesterol Activity Discharge Activity: Return to Normal Activity Weight Bearing Status: Weight bearing as tolerated Dressing / Incision Call your doctor if you observe: Fever of 101 or Higher, Shortness of breath, Dizziness, Fainting spells, Chest pain, Increased palpitations (irregular heartbeat) and Uncontrolled pain Follow Up Care Test Results: Test results from this visit will be discussed in further detail at your follow-up appointment, if applicable. Discharge Plan Admission Admit Date/Time: 04/26/21 12:19 Primary Reason for Your Visit: GI bleed Attending Provider: Lin Baptiste Primary Care Provider: Elen Barriga Consulting Providers: Baljit Valle Discharge Orders/Prescriptions Prescriptions: Continued melatonin 10 mg capsule 10 mg PO HS PRN (Reason: Sleep) RF: 0 donepezil 5 mg tablet 5 mg PO DAILY RF: 0 cholecalciferol (vitamin D3) 2,000 unit capsule 2,000 unit PO DAILY RF: 0 warfarin 4 mg tablet 10 mg PO MOFR RF: 0 Hold Instructions: Resume on 04/16/21. carvedilol 6.25 mg tablet 6.25 mg PO BID RF: 0 atorvastatin 80 mg tablet 80 mg PO QHS RF: 0 torsemide 20 mg tablet 20 mg PO BID RF: 0 febuxostat 40 mg tablet 40 mg PO DAILY RF: 0 diphenhydramine HCl [Allergy (diphenhydramine)] 25 mg tablet 25 mg PO QHS RF: 0 multivitamin Tablet 1 tab PO DAILY RF: 0 albuterol sulfate 90 mcg/actuation HFA aerosol inhaler 2 puff inhalation Q6H PRN (Reason: Shortness Of Breath) RF: 0 warfarin 4 mg Tablet 8 mg PO SUTUWETHSA RF: 0 Hold Instructions: Resume on 04/16/21. venlafaxine 75 mg capsule,extended release 24hr 75 mg PO DAILY RF: 0 tamsulosin [Flomax] 0.4 mg capsule 0.4 mg PO QHS RF: 0 memantine [Namenda] 5 mg tablet 5 mg PO BID RF: 0 (DME) Space Chamber with Medium Mask Spacer See Rx Instructions .ROUTE .MEDSUPPLY Qty: 1 RF: 1 hydroxyzine HCl 10 mg tablet 10 mg PO TID-QID PRN (Reason: anxiety) Qty: 360 RF: 3 Discontinued aspirin 81 mg tablet,delayed release (DR/EC) 81 mg PO DAILY RF: 0 Hold Instructions: Resume on 04/16/21. Referrals / Follow Up: Baljit Valle MD [STAFF PHYSICIAN] - Within 2 Weeks Elen Barriga [Primary Care Provider] - Within 1 Week Disposition Disposition (needs filled in before D/C Order can be placed): Home, self care
[2021-04-27 09:37] VITALS: BP 137/84; PULSE 97; RESP 16; TEMP 36.6; O2SAT 97
[2021-04-27] MEDS: Furosemide 40 MG Tablet PO (09:43)
[2021-04-27] MEDS: Carvedilol 6.25 MG Tablet PO (09:43)
[2021-04-27] MEDS: Febuxostat 40 MG TABLET PO (09:43)
[2021-04-27] MEDS: Donepezil HCl 5 MG Tablet PO (09:43)
[2021-04-27] MEDS: Memantine Hydrochloride 5 MG Tablet PO (09:43)
[2021-04-27] MEDS: Venlafaxine XR 75 MG Capsule PO (09:43)
--- NOTE | 2021-04-27 10:41 | PCM.DC.SUM ---
Providers Date of Admission: 04/26/21 Primary Care Physician: Elen Barriga Consultations 04/26/21 12:48 Consult: General Surgery Routine Consulting Provider: Baljit Valle Reason for Consult: GI bleed EMERGENT Consult: No MD Notified: Yes Date Notified: 04/26/21 Time Notified: 12:19 Method of Notification: Text Comments:: Notified by ER physician Reason For Visit: GI BLEED Diagnosis Discharge Diagnosis (1) Acute GI bleeding: Status: Acute Code(s): K92.2 - Gastrointestinal hemorrhage, unspecified Medications at Discharge Home Medications atorvastatin 80 mg tablet 80 mg PO QHS 03/23/19 carvedilol 6.25 mg tablet 6.25 mg PO BID 03/23/19 cholecalciferol (vitamin D3) 50 mcg (2,000 unit) capsule 2,000 unit PO DAILY 03/23/19 donepezil 5 mg tablet 5 mg PO DAILY 03/23/19 melatonin 10 mg capsule 10 mg PO HS PRN 03/23/19 warfarin 4 mg tablet 10 mg PO MOFR 03/23/19 torsemide 20 mg tablet 20 mg PO BID tab 05/15/20 inhalat.spacing dev,med. mask #1 ea 01/24/21 albuterol sulfate 90 mcg/actuation aerosol inhaler 2 puff INHALATION Q6H PRN 03/21/21 diphenhydramine HCl 25 mg tablet 25 mg PO QHS 03/21/21 febuxostat 40 mg tablet 40 mg PO DAILY 03/21/21 multivitamin 1 tab PO DAILY 03/21/21 hydroxyzine HCl 10 mg tablet 10 mg PO TID-QID PRN #360 tab 04/01/21 warfarin 8 mg PO SUTUWETHSA 04/03/21 memantine [Namenda] 5 mg PO BID 04/08/21 tamsulosin [Flomax] 0.4 mg PO QHS 04/08/21 venlafaxine 75 mg PO DAILY 04/08/21 Hospital Course Operations None Procedures None Summary of Care Provided Minutes Spent on Discharge: 25 Hospital Course: This is an 81 years old male patient presented to the emergency room because of rectal bleeding and admitted for GI bleeding. He had a history of chronic A. fib, has been on Coumadin and aspirin. On admission, INR was 1.7. Few weeks ago, he was admitted for epistaxis, managed with anterior packing and he was instructed to stop taking Coumadin for a few days. He resumed taking Coumadin several days before this admission along with aspirin. The rectal bleeding was small amount. On admission, hemoglobin was 11.8 g/dL. INR is 1.7. Patient monitored in PCU bed. General surgery consulted and recommended that if the hemoglobin drops significantly, patient will undergo colonoscopy. On the day of discharge, patient had bowel movement without blood. Hemoglobin was 10.9 g/dL. His INR was 1.9. No other complaints. General surgery recommended that colonoscopy can be done as outpatient. His vital signs were stable. He had no symptoms of chest pain, shortness of breath, dizziness or lightheadedness. He was not tachycardic. Patient discharged home in a stable medical condition, instructed to resume taking Coumadin, discontinue aspirin, continue other medications without any changes, plan to follow-up with Dr. Valle as outpatient for outpatient colonoscopy in 2 weeks, recommended follow-up with PCP in 1 week. Physical Exam Const alert, oriented x3 and no limitations Constitutional Narrative: Mildly short of breath, on oxygen. General Appearance: cooperative HEENT normocephalic, head/scalp atraumatic, external ears normal and external nose normal Eyes PERRL, EOMs intact bilaterally, conjunctivae normal and no scleral icterus Neck no lymphadenopathy, supple, no meningeal signs and no JVD Lymph Lymphatic: no lymphadenopathy noted Resp normal respiratory effort and normal air movement Resp Narrative: Diminished breath sounds bilateral, otherwise clear. Auscultation: Negative for crackles, rales, rhonchi or wheezes Cardio S1 normal heart sound, S2 normal heart sound, no murmurs and no JVD Cardio Narrative: Irregular rate and rhythm. GI normal to inspection, nondistended, normoactive bowel sounds, soft to palpation, non-tender and non-distended; Negative for hepatosplenomegaly GI Narrative: Obese. Extremity normal to inspection and full ROM Extremity Narrative: ++ Edema, no clubbing or cyanosis. Skin no rashes or lesions noted, no wounds and no petechiae Neuro oriented x3, CN's II-XII intact bilaterally and moves all extremities Sensorium / Orientation: alert Speech: speech normal Motor Exam: strength 5/5 throughout Psych mental status grossly normal and affect normal Appearance: appropriate Weight / BMI Weight Weight: 246 lb 5.394 oz Body Mass Index (BMI) 35.3 ABG / Lab / Microbiology Data Result Diagrams: 04/27/21 04:50 04/27/21 04:50 Laboratory: Laboratory Results - last 24 hr 04/26/21 04/26/21 04/26/21 10:59 10:59 10:59 WBC 7.1 RBC 3.33 L Hgb 11.1 L Hct 34.5 L MCV 103.6 H MCH 33.3 H MCHC 32.2 RDW Std Deviation 67.1 H RDW Coeff of Natalia 18.0 H Plt Count 445 MPV 10.4 Immature Gran % (Auto) 0.700 Neut % (Auto) 66.9 Lymph % (Auto) 14.4 L [place] % (Auto) 11.6 H Eos % (Auto) 5.6 H Baso % (Auto) 0.8 Absolute Neuts (auto) 4.8 Absolute Lymphs (auto) 1.03 Nucleated RBC % 0.4 Hypochromasia 1+ Anisocytosis 3+ Target Cells Acanthocytes (Spur) Schistocytes 1+ PT 19.6 H INR 1.7 APTT 40.5 H Sodium 140 Potassium 3.3 L Chloride 104 Carbon Dioxide 28.0 Anion Gap 8 BUN 38 H Creatinine 2.25 H Estim Creat Clear Calc 24.91 Est GFR (MDRD) Af Amer 36 L Est GFR (MDRD) Non-Af 30 L BUN/Creatinine Ratio 16.9 Glucose 113 H Calcium 8.7 Blood Type Antibody Screen 04/26/21 04/26/21 04/27/21 10:59 19:40 04:50 WBC 7.8 RBC 3.30 L Hgb 11.8 L 10.9 L Hct 37.2 L 34.0 L MCV 103.0 H MCH 33.0 H MCHC 32.1 RDW Std Deviation 66.0 H RDW Coeff of Natalia 17.8 H Plt Count 462 H MPV 10.4 Immature Gran % (Auto) 0.600 Neut % (Auto) 67.3 Lymph % (Auto) 13.6 L [place] % (Auto) 12.9 H Eos % (Auto) 4.8 Baso % (Auto) 0.8 Absolute Neuts (auto) 5.2 Absolute Lymphs (auto) 1.06 Nucleated RBC % 0 Hypochromasia Anisocytosis 1+ Target Cells 1+ Acanthocytes (Spur) RARE Schistocytes RARE PT INR APTT Sodium Potassium Chloride Carbon Dioxide Anion Gap BUN Creatinine Estim Creat Clear Calc Est GFR (MDRD) Af Amer Est GFR (MDRD) Non-Af BUN/Creatinine Ratio Glucose Calcium Blood Type A POSITIVE Antibody Screen NEGATIVE 04/27/21 04/27/21 04:50 04:50 WBC RBC Hgb Hct MCV MCH MCHC RDW Std Deviation RDW Coeff of Natalia Plt Count MPV Immature Gran % (Auto) Neut % (Auto) Lymph % (Auto) [place] % (Auto) Eos % (Auto) Baso % (Auto) Absolute Neuts (auto) Absolute Lymphs (auto) Nucleated RBC % Hypochromasia Anisocytosis Target Cells Acanthocytes (Spur) Schistocytes PT 21.2 H INR 1.9 APTT Sodium 140 Potassium 3.9 Chloride 105 Carbon Dioxide 30.0 Anion Gap 5 BUN 34 H Creatinine 1.95 H Estim Creat Clear Calc 30.68 Est GFR (MDRD) Af Amer 43 L Est GFR (MDRD) Non-Af 35 L BUN/Creatinine Ratio 17.4 Glucose 94 Calcium 8.9 Blood Type Antibody Screen Microbiology: Microbiology 04/26/21 11:15 Stool Occult Blood (RICO) - Final Stool Occult Blood Positive Microbiology 04/26/21 11:15 Stool Stool Occult Blood (RICO) - Final Occult Blood Positive D/C Instructions Discharge Diet: Low fat / Low cholesterol Weight Bearing Status: Weight bearing as tolerated Call your doctor if you observe: Fever of 101 or Higher, Shortness of breath, Dizziness, Fainting spells, Chest pain, Increased palpitations (irregular heartbeat) and Uncontrolled pain Meaningful Use Info Meaningful Use Diagnoses (Choose all that apply): None applicable Discharge Plan Admission Admit Date/Time: 04/26/21 12:19 Primary Reason for Your Visit: GI bleed Attending Provider: Lin Baptiste Primary Care Provider: Elen Barriga Consulting Providers: Baljit Valle Instructions Additional Instructions / Restrictions: Patient Problems: Altered Health Status related to Hospitalization Patient Goals: *Optimal Level of Health *Keep Appointments *Medication Compliance *Remain Safe Discharge Orders/Prescriptions Prescriptions: Continued melatonin 10 mg capsule 10 mg PO HS PRN (Reason: Sleep) RF: 0 donepezil 5 mg tablet 5 mg PO DAILY RF: 0 cholecalciferol (vitamin D3) 2,000 unit capsule 2,000 unit PO DAILY RF: 0 warfarin 4 mg tablet 10 mg PO MOFR RF: 0 Hold Instructions: Resume on 04/16/21. carvedilol 6.25 mg tablet 6.25 mg PO BID RF: 0 atorvastatin 80 mg tablet 80 mg PO QHS RF: 0 torsemide 20 mg tablet 20 mg PO BID RF: 0 febuxostat 40 mg tablet 40 mg PO DAILY RF: 0 diphenhydramine HCl [Allergy (diphenhydramine)] 25 mg tablet 25 mg PO QHS RF: 0 multivitamin Tablet 1 tab PO DAILY RF: 0 albuterol sulfate 90 mcg/actuation HFA aerosol inhaler 2 puff inhalation Q6H PRN (Reason: Shortness Of Breath) RF: 0 warfarin 4 mg Tablet 8 mg PO SUTUWETHSA RF: 0 Hold Instructions: Resume on 04/16/21. venlafaxine 75 mg capsule,extended release 24hr 75 mg PO DAILY RF: 0 tamsulosin [Flomax] 0.4 mg capsule 0.4 mg PO QHS RF: 0 memantine [Namenda] 5 mg tablet 5 mg PO BID RF: 0 (DME) Space Chamber with Medium Mask Spacer See Rx Instructions .ROUTE .MEDSUPPLY Qty: 1 RF: 1 hydroxyzine HCl 10 mg tablet 10 mg PO TID-QID PRN (Reason: anxiety) Qty: 360 RF: 3 Discontinued aspirin 81 mg tablet,delayed release (DR/EC) 81 mg PO DAILY RF: 0 Hold Instructions: Resume on 04/16/21. Referrals / Follow Up: Baljit Valle MD [STAFF PHYSICIAN] - Within 2 Weeks Elen Barriga [Primary Care Provider] - Within 1 Week Disposition Disposition (needs filled in before D/C Order can be placed): Home, self care Charges/Coding Visit Charges OBSV E&M: 80628 Observation care discharge
[2021-04-27 13:00] LABS: Hematocrit 35.4 % (40-54); Hemoglobin 11.2 g/dL (13.0-16.5)
--- NOTE | 2021-04-28 13:33 | NURSING ---
VANDANA DC F/U Call: DC Date: 04/27/21 DC Diagnosis: (1) Acute GI bleeding DC Disposition: Home Lace/Strata: 09/17 Called patient listed home number, no answer and VM did not identify correct patient- therefore no VM was left. VANDANA Dos Santos
== END 2021-04-27 13:50 | disposition home or self-care (01) | DRG 378 ==
LOC: ED 12:19 → PCU 12:31
PROVIDERS: Admitting Provider Hospitalist; Emergency Provider Emergency Medicine; Visit Provider Hospitalist
DX: K92.1 Melena (principal); N18.4 Chronic kidney disease, stage 4 (severe); I48.11 Longstanding persistent atrial fibrillation; J96.10 Chronic respiratory failure, unspecified whether with hypoxia or hypercapnia; E11.22 Type 2 diabetes mellitus with diabetic chronic kidney disease; I12.9 Hypertensive chronic kidney disease with stage 1 through stage 4 chronic kidney disease, or unspecified chronic kidney disease; E11.65 Type 2 diabetes mellitus with hyperglycemia; G30.9 Alzheimer's disease, unspecified; F02.80 Dementia in other diseases classified elsewhere, unspecified severity, without behavioral disturbance, psychotic disturbance, mood disturbance, and anxiety; K74.60 Unspecified cirrhosis of liver; E78.5 Hyperlipidemia, unspecified; M19.90 Unspecified osteoarthritis, unspecified site; N40.0 Benign prostatic hyperplasia without lower urinary tract symptoms; G47.30 Sleep apnea, unspecified; G47.00 Insomnia, unspecified; F33.42 Major depressive disorder, recurrent, in full remission; F41.9 Anxiety disorder, unspecified; H91.93 Unspecified hearing loss, bilateral; Z79.01 Long term (current) use of anticoagulants; Z79.899 Other long term (current) drug therapy; Z99.81 Dependence on supplemental oxygen; Z90.81 Acquired absence of spleen; Z90.5 Acquired absence of kidney; Z90.49 Acquired absence of other specified parts of digestive tract; Z87.891 Personal history of nicotine dependence
CPT/HCPCS: 36415; 80048; 82274; 85014; 85018; 85025; 85610; 85730; 86850; 86900; 86901; 93005; 97162; 97166; 99285; A4216

== ENCOUNTER 2021-06-26 06:56 | Inpatient (IN) | payer OTHER, MEDICARE, SELFPAY ==
[2021-05-13 08:57] VITALS: BMI 33.8
[2021-06-26] VITALS (11 sets, daily range): BP systolic 90–137; BP diastolic 64–81; PULSE 72–117; RESP 16–24; TEMP 36.3–37.3; O2SAT 94–98; BMI 38.2; BMI 35.9
--- NOTE | 2021-06-26 07:38 | CT_ITS ---
STUDY: CT BRAIN WITHOUT CONTRAST REASON FOR EXAM: Male, 81 years old. Fall RADIATION DOSAGE (If Supplied By Facility): CTDIvol = ( 44.99 ) mGy, DLP = ( 846.73 ) mGycm TECHNIQUE: Transaxial CT imaging of the brain was performed without administration of intravenous contrast material. Individualized dose optimization techniques were used for this CT. COMPARISON: No relevant priors. FINDINGS: Normal soft tissue structures. Normal calvarium. There is mild cerebral atrophy with widening of the extra-axial spaces and ventricular dilatation. Normal white matter tracts of the cerebral hemispheres. Normal basal ganglia and thalami. Normal brainstem. Normal cerebellum. There is no intracranial hemorrhage. There are no findings of an acute ischemic infarction. Normal visualized paranasal sinuses. CT/Brain/Head without Contrast IMPRESSION: Chronic involutional changes of the brain. Electronically Signed: Sarath Govea MD at 8:22 EDT , Service support ,
[2021-06-26] MEDS: Morphine 4 MG/ML Syringe IV (07:55)
[2021-06-26] MEDS: 0.9% Normal Saline 1,000 ML 1000 ML IV (07:55)
[2021-06-26 08:16] LABS: International Normalized Ratio 3.1; Prothrombin Time (Protime)PT. 31.1 SECONDS (11.7-14.9)
[2021-06-26 08:26] LABS: ALB/GLOB Ratio 0.4 RATIO (0.9-2.4); AST(SGOT) 68 U/L (15-37); Alanine Aminotransfer ALT/SGPT 49 U/L (16-61); Alkaline Phosphatase 285 U/L (45-117); Anion Gap 11 (5-15); BUN 72 mg/dL (7-18); BUN/Creat Ratio 26.1 RATIO (10-20); Calcium,Total 8.4 mg/dL (8.5-10.1); Chloride 92 mmol/L (98-107); Creatinine, Serum 2.76 mg/dL (0.70-1.30); EST Glomerular Filtration Rate 24 mL/min (>60); Est Glom Filt Rate - Afr Amer 29 mL/min (>60); Estimated Creatinine Clearance 20.31 ml/min; Globulin 5.2 g/dL (2.2-4.2); Glucose 198 mg/dL (74-106); Potassium 2.8 mmol/L (3.5-5.1); Protein, Total 7.2 g/dL (6.4-8.2); Sodium Level 133 mmol/L (136-145); Troponin-I HS 202.4 pg/mL (3.0-78.5)
[2021-06-26 08:35] LABS: Absolute Lymphocyte Count 1.47 X10^3/uL (0.83-4.51); Absolute Neutrophil Count 21.2 X10^3/uL (2.0-7.7); Basophil# 0.05 X10^3/uL; Basophil% 0.2 % (0-1); Hematocrit 32.8 % (40-54); Hemoglobin 11.1 g/dL (13.0-16.5); Lymphocyte # 1.47 X10^3/ul (0.83-4.51); Lymphocyte % 5.9 % (19-41); Mean Corp Hgb Conc 33.8 g/dL (32-36); Mean Corpuscular Hgb 32.6 pg (27.0-32.0); Mean Corpuscular Volume 96.2 fL (80-94); Mean Platelet Vol. 10.5 fl (6.2-12.0); Monocyte# 1.58 X10^3/uL; Monocyte% 6.4 % (0-10); NRBC Flagged by Analyzer 0.2 % (0-5); Neutrophil # 21.18 X10^3/uL (2.7-7.7); Neutrophil % 85.6 % (47-70); POSITIVE DIFFERENTIAL YES; Platelet Count 412 K/mm3 (150-450); RBC Distribution Width CV 16.7 % (11.6-14.6); RBC Distribution Width SD 57.4 fl (35.1-43.9); Red Blood Count 3.41 M/mm3 (4.6-6.2); White Blood Count 24.8 K/mm3 (4.4-11.0)
[2021-06-26 08:36] LABS: Differential Indicated SCAN CRITERIA MET
--- NOTE | 2021-06-26 08:36 | EKG12_ITS ---
Test Reason : Blood Pressure : / mmHG Vent. Rate : 107 BPM Atrial Rate : 098 BPM P-R Int : 000 ms QRS Dur : 150 ms QT Int : 402 ms P-R-T Axes : 000 043 -18 degrees QTc Int : 536 ms Atrial fibrillation with premature ventricular or aberrantly conducted complexes Right bundle branch block T wave abnormality, consider inferior ischemia Abnormal ECG Confirmed by TEMO DURAND, LOIS ([id number]), newspaper editor managing ELY RITCHIE ([id number]) on 07/01/2021 8:29:33 AM Referred By: JOSE ANGEL Confirmed By:LOIS PLASCENCIA MD
[2021-06-26] MEDS: Aspirin 81 MG TAB.CHEW 324 MG PO (08:48)
--- NOTE | 2021-06-26 09:41 | ED.VIS.FALL ---
HPI HPI - Fall History of Present Illness Chief Complaint: Fall Informant: patient and spouse/S.O. Occured/Mechanism Occurred: Today Mechanism/Context: Yes same level fall Usually ambulates: Walker Pain/Injury Location: Low back Worsened by: Movement Relieved by: Nothing Associated Symptoms Associated Symptoms: Positive for Inability to ambulate; Negative for Parasthesias, Weakness and Loss of consciousness Narrative Narrative: Patient presents with generalized weakness and a fall that occurred this morning. Patient states he is unsteady on his feet. states the patient is supposed to walk with a walker but did not use his walker today. Patient states he has been having balance problems. states patient has been getting progressively more weak. states that the patient was unable to stand to use a urinal yesterday. Patient admits to chronic back pain but is not worse since the fall. Patient describes as aching. Patient denies any paresthesias or weakness. [facility] Medical History (Updated 06/26/21 @ 11:[address] Vasu Ruggiero MD) Acute GI bleeding Alzheimer's dementia Anxiety Atrial fibrillation status post cardioversion BPH (benign prostatic hyperplasia) Cirrhosis Depression Diabetes type 2, uncontrolled Hearing loss, left Hearing loss, right Hyperlipidemia Hypertension Insomnia Kidney disease On home oxygen therapy Osteoarthritis Sleep apnea Home Medications atorvastatin 80 mg tablet 80 mg PO QHS 03/23/19 [History Last Taken 04/07/21] carvedilol 6.25 mg tablet 6.25 mg PO BID 03/23/19 [History Last Taken 04/07/21] cholecalciferol (vitamin D3) 50 mcg (2,000 unit) capsule 2,000 unit PO DAILY 03/23/19 [History Last Taken 04/07/21] donepezil 5 mg tablet 5 mg PO DAILY 03/23/19 [History Last Taken 04/07/21] melatonin 10 mg capsule 10 mg PO HS PRN 03/23/19 [History Last Taken 04/07/21] warfarin 4 mg tablet 10 mg PO MOFR 03/23/19 [History Last Taken 04/07/21] torsemide 20 mg tablet 20 mg PO BID tab 05/15/20 [History Last Taken 04/07/21] inhalat.spacing dev,med. mask #1 ea 01/24/21 [Rx Last Taken Unknown] albuterol sulfate 90 mcg/actuation aerosol inhaler 2 puff INHALATION Q6H PRN 03/21/21 [History Last Taken 04/08/21] diphenhydramine HCl 25 mg tablet 25 mg PO QHS 03/21/21 [History Last Taken 04/07/21] febuxostat 40 mg tablet 40 mg PO DAILY 03/21/21 [History Last Taken 04/07/21] multivitamin 1 tab PO DAILY 03/21/21 [History Last Taken Unknown] hydroxyzine HCl 10 mg tablet 10 mg PO TID-QID PRN #360 tab 04/01/21 [Rx Last Taken 04/08/21] warfarin 8 mg PO SUTUWETHSA 04/03/21 [History Last Taken 04/06/21] venlafaxine 75 mg PO DAILY 04/08/21 [History Last Taken 04/07/21] memantine 5 mg tablet 5 mg PO BID #180 tab 05/13/21 [Rx Last Taken Unknown] metolazone 2.5 mg tablet 2.5 mg PO Q OTHER DAY 05/13/21 [History Last Taken Unknown] tamsulosin 0.4 mg capsule 0.4 mg PO QHS #90 cap 05/13/21 [Rx Last Taken Unknown] Allergy/AdvReac Type Severity Reaction Status Date / Time No Known Allergies Allergy Verified 04/26/21 10:41 Family History Other Cancer Heart disease Hypertension Surgical History H/O splenectomy History of appendectomy History of nephrectomy, right Social History Smoking Status: Former smoker alcohol intake: never ROS ROS ED Constitutional Constitutional ED: Denies chills or fever(s) Eyes Eyes: Denies blurry vision or change in vision ENT ENT ED: Denies rhinorrhea or sore throat Cardiovascular Cardiovascular: Denies chest pain or palpitations Respiratory/Chest Respiratory/Chest: Denies cough or dyspnea Gastrointestinal Gastrointestinal: Denies nausea or vomiting Genitourinary Genitourinary ED: Denies dysuria or hematuria Musculoskeletal Musculoskeletal: Reports back pain and neck pain Integumentary Denies abscess or rash Neurologic Neurologic: Reports weakness; Denies headache(s) Allergic/Immunologic Allergic/Immunologic ED: Denies mouth swelling or urticaria EXAM Physical Exam Const Vital Signs: 06/26/21 06:57 06/26/21 07:20 06/26/21 08:50 Temperature 99.2 F H Temperature Source Oral Pulse Rate 114 H 100 Respiratory Rate 21 H 18 Respiratory Effort Normal Respiratory Pattern Normal Blood Pressure 115/73 93/77 Blood Pressure Mean 87 82 Pulse Ox 94 96 Oxygen Delivery Method Nasal Cannula Room Air Oxygen Flow Rate (L/min) 2 06/26/21 10:26 06/26/21 11:26 Temperature 98.4 F Temperature Source Oral Pulse Rate 99 95 Respiratory Rate 18 16 Respiratory Effort Respiratory Pattern Blood Pressure 90/64 110/70 Blood Pressure Mean 72 83 Pulse Ox 96 96 Oxygen Delivery Method Room Air Nasal Cannula Oxygen Flow Rate (L/min) 2 Positive well nourished, well developed and obese General Appearance ED: well developed Nutritional Appearance: obese HEENT Reports moist mucous membranes Neck supple and no JVD Resp normal respiratory effort and clear to auscultation bilaterally Cardio regular rate and no murmurs Rhythm: abnormal rhythm irregularly irregular GI normal to inspection, nondistended, normoactive bowel sounds and non-tender Palpation: soft Extremity normal to inspection and full ROM General Extremety ED: Negative for edema or tenderness General Extremity: Negative for edema Neuro oriented x3, CN's II-XII intact bilaterally and no sensory deficits noted Sensorium / Orientation: alert Motor Exam: strength 5/5 throughout Psych mental status grossly normal Skin no rashes or lesions noted MDM MDM MDM Narrative Medical decision making narrative: Patient was given IV fluids. Patient was given a dose of morphine. EKG was obtained. On my interpretation, it shows atrial fibrillation with a rate of 107. There is a right bundle branch block pattern noted. There are no acute ST or T wave changes noted. CBC shows a leukocytosis of 24.8. Hemoglobin was 11.1 and hematocrit was 32.8. PT with INR was therapeutic with INR 3.1. Comprehensive metabolic profile showed a hypokalemia of 2.8. Creatinine was 2.76 and BUN was 72. These are slightly increased from previous results. High-sensitivity troponin was elevated 202.4. CT scan of the brain was obtained. There is no acute intracranial injury. Urinalysis is ordered and does not show any evidence of urinary tract infection. Portable 1 view chest x-ray was obtained. On my interpretation, lung watson show chronic changes. There is normal cardiac silhouette. Bony thorax is normal. There is no acute process noted. Radiologist also interpreted the x-ray and agrees. Patient was given a dose of aspirin here. Patient was given a dose of potassium. Case was discussed with the hospitalist. He will admit the patient to his service. He requested that I discussed the case with cardiology. Case was discussed with Dr. Vergara. He had no further recommendations. Patient understands and is agreeable with the plan. All questions were answered. Lab Data Attestation: I reviewed the patient's lab results. Labs: Laboratory Results - last 24 hr 06/26/21 06/26/21 06/26/21 07:55 07:55 07:55 WBC 24.8 H RBC 3.41 L Hgb 11.1 L Hct 32.8 L MCV 96.2 H MCH 32.6 H MCHC 33.8 RDW Std Deviation 57.4 H RDW Coeff of Natalia 16.7 H Plt Count 412 MPV 10.5 Immature Gran % (Auto) 1.900 H Neut % (Auto) 85.6 H Lymph % (Auto) 5.9 L [place] % (Auto) 6.4 Eos % (Auto) 0.0 Baso % (Auto) 0.2 Absolute Neuts (auto) 21.2 H Absolute Lymphs (auto) 1.47 Nucleated RBC % 0.2 Diff Path Review March foll PT 31.1 H INR 3.1 Sodium 133 L Potassium 2.8 L Chloride 92 L Carbon Dioxide 30.0 Anion Gap 11 BUN 72 H Creatinine 2.76 H Estim Creat Clear Calc 20.31 Est GFR (MDRD) Af Amer 29 L Est GFR (MDRD) Non-Af 24 L BUN/Creatinine Ratio 26.1 H Glucose 198 H Calcium 8.4 L Total Bilirubin 1.70 H AST 68 H ALT 49 Alkaline Phosphatase 285 H Troponin I High Sens 202.4 H* Total Protein 7.2 Albumin 2.0 L Globulin 5.2 H Albumin/Globulin Ratio 0.4 L Urine Color Urine Clarity Urine pH Ur Specific [place] Urine Protein Urine Glucose (UA) Urine Ketones Urine Occult Blood Urine Nitrite Urine Bilirubin Urine Urobilinogen Ur Leukocyte Esterase Urine RBC Urine WBC Ur Squamous Epith Cells Urine Bacteria Urine Mucus 06/26/21 09:46 WBC RBC Hgb Hct MCV MCH MCHC RDW Std Deviation RDW Coeff of Natalia Plt Count MPV Immature Gran % (Auto) Neut % (Auto) Lymph % (Auto) [place] % (Auto) Eos % (Auto) Baso % (Auto) Absolute Neuts (auto) Absolute Lymphs (auto) Nucleated RBC % Diff Path Review PT INR Sodium Potassium Chloride Carbon Dioxide Anion Gap BUN Creatinine Estim Creat Clear Calc Est GFR (MDRD) Af Amer Est GFR (MDRD) Non-Af BUN/Creatinine Ratio Glucose Calcium Total Bilirubin AST ALT Alkaline Phosphatase Troponin I High Sens Total Protein Albumin Globulin Albumin/Globulin Ratio Urine Color Yellow Urine Clarity Clear Urine pH 6.0 Ur Specific [place] 1.015 Urine Protein 100 H Urine Glucose (UA) 50 H Urine Ketones Negative Urine Occult Blood 50 H Urine Nitrite Negative Urine Bilirubin Negative Urine Urobilinogen 1 H Ur Leukocyte Esterase Negative Urine RBC 0-5 SEEN Urine WBC 0-5 SEEN Ur Squamous Epith Cells 0 SEEN Urine Bacteria 0 SEEN Urine Mucus 0 SEEN Radiography Diagnostic Testing: Radiology Impression Brain CT 06/26/21 07:38 IMPRESSION: Chronic involutional changes of the brain. Electronically Signed: Sarath Govea MD at 8:22 EDT , Service support , Chest X-Ray 06/26/21 09:47 IMPRESSION: Increased markings at the lung bases suggestive of either early atelectasis and/or scarring with blunting of the right costophrenic angle. Cardiomegaly. Electronically Signed: Sarath Govea MD at 10:39 EDT , Service support , EKG Initial EKG: Interpretation: Atrial Fibrillation (107) and Non-Specific ST Changes Prior EKG tracings: available for review Prior: Unchanged (04/26/2021) Treatment and Re-Evaluation Vital Sign Attestation:: Vital signs were reviewed prior to admission. Blood pressure is 90/64. Patient is resting comfortably. Patient is stable. Patient was ordered a second liter of IV fluids. Discharge Plan Dx/Rx/DC Orders Clinical Impression: Non-STEMI (non-ST elevated myocardial infarction), Hypokalemia Disposition Disposition: Acute Care Hospital [facility]
--- NOTE | 2021-06-26 09:47 | RAD_ITS ---
STUDY: X-RAY CHEST REASON FOR EXAM: Male, 81 years old. Pain following a fall. TECHNIQUE: Single AP portable view of the chest. COMPARISON: None. FINDINGS: EKG electrodes are seen. Mild increased linear markings at the lung bases suggestive of either linear atelectasis and/or possibly scarring. Blunting of the right costophrenic angle. There is moderate cardiac enlargement. Normal mediastinum and ean. Normal visualized pulmonary arteries. Normal visualized aortic arch and descending thoracic aorta. There are diffuse degenerative changes of the visualized thoracic spine. Normal visualized ribs, clavicles, and shoulders. There is no demonstrated abnormality of the visualized soft tissue structures of the upper abdomen. RAD/Chest 1 View (Portable) IMPRESSION: Increased markings at the lung bases suggestive of either early atelectasis and/or scarring with blunting of the right costophrenic angle. Cardiomegaly. Electronically Signed: Sarath Govea MD at 10:39 EDT , Service support ,
[2021-06-26 09:59] LABS: Bacteria 0 SEEN /hpf (None Seen); Mucous, Urine 0 SEEN /hpf (<or=2+); Squamous Epithelial Cells - UA 0 SEEN /hpf (0-5)
[2021-06-26 10:05] LABS: Color, Urine Yellow (Yellow); Glucose, Dipstick 50 mg/dl (Normal); Ketone-Dipstick Negative (Negative); Leukocyte Esterase-Dipstick Negative /ul (Negative); Nitrite-Dipstick Negative (Negative); Occult Blood-Urine 50 /ul (Negative); Protein-Dipstick 100 mg/dl (Negative); Specific Gravity, Urine 1.015 (1.002-1.030); Urine Bilirubin Dipstick Negative (Negative); Urine Clarity Clear (Clear); Urine Urobilinogen 1 mg/dl (Normal)
[2021-06-26 10:16] LABS: Red Blood Cells-Urine 0-5 SEEN /hpf (0-5); White Blood Cells 0-5 SEEN /hpf (0-5)
[2021-06-26] MEDS: Potassium Chloride Oral Tablet 20 MEQ 60 MEQ PO (10:25)
--- NOTE | 2021-06-26 10:45 | NURSING ---
DR WILLIAM WALTER
--- NOTE | 2021-06-26 10:56 | NURSING ---
CALLED [facility], TALKED TO KARLIE IN INTAKE
--- NOTE | 2021-06-26 10:57 | NURSING ---
PCU OBS KITTOE NSTEMI
--- NOTE | 2021-06-26 11:05 | NURSING ---
FAXED CHART TO [facility]
[2021-06-26] MEDS: 0.9% Normal Saline 1,000 ML 999 ML IV (11:26)
--- NOTE | 2021-06-26 11:42 | PCM.HP.STD ---
[facility] - General General Date of Admission: 06/26/21 Date of Service: 06/26/21 Chief Complaint: Fall HPI Narrative SHANDRA QUINTERO, is a 81 M with past medical history significant for chronic A. fib on systemic anticoagulation with Coumadin, stage IV chronic kidney disease, mild dementia who presents with a fall. Patient history was obtained from the was with him in the ED. Per patient's patient normally uses a walker, on the morning of patient got up to go use the bathroom. was supposed to assess patient however per the patient was not patient and ended up falling to the ground. There was no report of patient hitting his head. He denied any chest pain or shortness of breath prior to his fall. Was brought to the emergency department as a result. Patient was found to have elevated troponin as well as elevated WBC count. Chest x-ray and urinalysis obtained subsequently came back negative. Admitted to a monitored bed for further management [facility] Medical History (Updated 06/26/21 @ 11:[address] Vasu Ruggiero MD) Acute GI bleeding Alzheimer's dementia Anxiety Atrial fibrillation status post cardioversion BPH (benign prostatic hyperplasia) Cirrhosis Depression Diabetes type 2, uncontrolled Hearing loss, left Hearing loss, right Hyperlipidemia Hypertension Insomnia Kidney disease On home oxygen therapy Osteoarthritis Sleep apnea Home Medications atorvastatin 80 mg tablet 80 mg PO QHS 03/23/19 [History Last Taken 04/07/21] carvedilol 6.25 mg tablet 6.25 mg PO BID 03/23/19 [History Last Taken 04/07/21] cholecalciferol (vitamin D3) 50 mcg (2,000 unit) capsule 2,000 unit PO DAILY 03/23/19 [History Last Taken 04/07/21] donepezil 5 mg tablet 5 mg PO DAILY 03/23/19 [History Last Taken 04/07/21] melatonin 10 mg capsule 10 mg PO HS PRN 03/23/19 [History Last Taken 04/07/21] warfarin 4 mg tablet 10 mg PO MOFR 03/23/19 [History Last Taken 04/07/21] torsemide 20 mg tablet 20 mg PO BID tab 05/15/20 [History Last Taken 04/07/21] inhalat.spacing dev,med. mask #1 ea 01/24/21 [Rx Last Taken Unknown] albuterol sulfate 90 mcg/actuation aerosol inhaler 2 puff INHALATION Q6H PRN 03/21/21 [History Last Taken 04/08/21] diphenhydramine HCl 25 mg tablet 25 mg PO QHS 03/21/21 [History Last Taken 04/07/21] febuxostat 40 mg tablet 40 mg PO DAILY 03/21/21 [History Last Taken 04/07/21] multivitamin 1 tab PO DAILY 03/21/21 [History Last Taken Unknown] hydroxyzine HCl 10 mg tablet 10 mg PO TID-QID PRN #360 tab 04/01/21 [Rx Last Taken 04/08/21] warfarin 8 mg PO SUTUWETHSA 04/03/21 [History Last Taken 04/06/21] venlafaxine 75 mg PO DAILY 04/08/21 [History Last Taken 04/07/21] memantine 5 mg tablet 5 mg PO BID #180 tab 05/13/21 [Rx Last Taken Unknown] metolazone 2.5 mg tablet 2.5 mg PO Q OTHER DAY 05/13/21 [History Last Taken Unknown] tamsulosin 0.4 mg capsule 0.4 mg PO QHS #90 cap 05/13/21 [Rx Last Taken Unknown] Allergy/AdvReac Type Severity Reaction Status Date / Time No Known Allergies Allergy Verified 04/26/21 10:41 Family History Other Cancer Heart disease Hypertension Surgical History H/O splenectomy History of appendectomy History of nephrectomy, right Social History Smoking Status: Former smoker alcohol intake: never ROS ROS Narrative GENERAL: denies fever, chills, night sweats, HEENT: denies headache, sinus congestion, RESPIRATORY: denies cough, sputum production, CARDIAC: denies chest pain, palpitations, orthopnea GASTROINTESTINAL: denies abdominal pain, nausea, GENITOURINARY: denies dysuria, urgency, frequency, EXTREMITY: denies swelling MUSCULOSKELETAL: Fall with low back pain NEUROLOGIC: denies focal numbness, weakness, tingling HEMATOLOGIC: denies easy bruising and/or hemorrhage INTEGUMENT: denies rashes PSYCHIATRIC: denies suicidal or homicidal ideation Vital Signs Vital Signs Vital Signs: 06/26/21 06:57 06/26/21 07:20 06/26/21 08:50 Temperature 99.2 F H Temperature Source Oral Pulse Rate 114 H 100 Respiratory Rate 21 H 18 Respiratory Effort Normal Respiratory Pattern Normal Blood Pressure 115/73 93/77 Blood Pressure Mean 87 82 Pulse Ox 94 96 Oxygen Delivery Method Nasal Cannula Room Air Oxygen Flow Rate (L/min) 2 06/26/21 10:26 06/26/21 11:26 Temperature 98.4 F Temperature Source Oral Pulse Rate 99 95 Respiratory Rate 18 16 Respiratory Effort Respiratory Pattern Blood Pressure 90/64 110/70 Blood Pressure Mean 72 83 Pulse Ox 96 96 Oxygen Delivery Method Room Air Nasal Cannula Oxygen Flow Rate (L/min) 2 Weight Weight: 113.9 kg Body Mass Index (BMI) 38.2 Physical Exam Narrative GENERAL: cooperative HEENT: Atraumatic; EYES; Anicteric, Normal Conjunctiva NECK; supple, normal thyroid, RESPIRATORY: Diminished to auscultation CARDIOVASCULAR: Irregular S1 S2, GI: soft, normoactive bowel sounds, : No Renal angle tenderness; EXTREMITIES: No edema, no clubbing, MUSCULOSKELETAL: no muscle waisting NEURO: Awake; no lateralizing signs. SKIN: No Rash PSYCH; Flat affect Results Lab / Micro Data Result Diagrams: 06/26/21 07:55 06/26/21 07:55 Labs: Laboratory Results - last 24 hr 06/26/21 07:55: WBC 24.8 H, RBC 3.41 L, Hgb 11.1 L, Hct 32.8 L, MCV 96.2 H, MCH 32.6 H, MCHC 33.8, RDW Std Deviation 57.4 H, RDW Coeff of Natalia 16.7 H, Plt Count 412, MPV 10.5, Immature Gran % (Auto) 1.900 H, Neut % (Auto) 85.6 H, Lymph % (Auto) 5.9 L, [place] % (Auto) 6.4, Eos % (Auto) 0.0, Baso % (Auto) 0.2, Absolute Neuts (auto) 21.2 H, Absolute Lymphs (auto) 1.47, Nucleated RBC % 0.2, Diff Path Review March06/26/21 07:55: PT 31.1 H, INR 3.1 06/26/21 07:55: Sodium 133 L, Potassium 2.8 L, Chloride 92 L, Carbon Dioxide 30.0, Anion Gap 11, BUN 72 H, Creatinine 2.76 H, Estim Creat Clear Calc 20.31, Est GFR (MDRD) Af Amer 29 L, Est GFR (MDRD) Non-Af 24 L, BUN/Creatinine Ratio 26.1 H, Glucose 198 H, Calcium 8.4 L, Total Bilirubin 1.70 H, AST 68 H, ALT 49, Alkaline Phosphatase 285 H, Troponin I High Sens 202.4 H*, Total Protein 7.2, Albumin 2.0 L, Globulin 5.2 H, Albumin/Globulin Ratio 0.4 L 06/26/21 09:46: Urine Color Yellow, Urine Clarity Clear, Urine pH 6.0, Ur Specific [place] 1.015, Urine Protein 100 H, Urine Glucose (UA) 50 H, Urine Ketones Negative, Urine Occult Blood 50 H, Urine Nitrite Negative, Urine Bilirubin Negative, Urine Urobilinogen 1 H, Ur Leukocyte Esterase Negative, Urine RBC 0-5 SEEN, Urine WBC 0-5 SEEN, Ur Squamous Epith Cells 0 SEEN, Urine Bacteria 0 SEEN, Urine Mucus 0 SEEN Radiology Impression Brain CT 06/26/21 07:38 IMPRESSION: Chronic involutional changes of the brain. Electronically Signed: Sarath Govea MD at 8:22 EDT , Service support , Chest X-Ray 06/26/21 09:47 IMPRESSION: Increased markings at the lung bases suggestive of either early atelectasis and/or scarring with blunting of the right costophrenic angle. Cardiomegaly. Electronically Signed: aSrath Govea MD at 10:39 EDT , Service support , Assessment & Plan Assessment/Plan (1) Non-STEMI (non-ST elevated myocardial infarction): (2) Hypokalemia: (3) Chronic kidney disease, stage IV (severe): (4) Atrial fibrillation: QUALIFIERS: Atrial fibrillation type: longstanding persistent Qualified Code(s): I48.11 - Longstanding persistent atrial fibrillation (5) CHF (congestive heart failure): QUALIFIERS: Heart failure type: diastolic Heart failure chronicity: chronic Qualified Code(s): I50.32 - Chronic diastolic (congestive) heart failure (6) Anemia: PLAN: Patient is an 81-year-old gentleman admitted with a fall found to have elevated cardiac enzymes as well as leukocytosis 1. Acute mechanical nonsyncopal fall ?Patient has been admitted to regular nursing floor requested for PT OT eval and social media intern to assist with discharge planning 2. Elevated troponin ?Do suspect NSTEMI type II as a result of worsening kidney function, patient denies any chest pain no shortness of breath EKG no acute changes. Patient has been admitted to telemetry for continuous monitoring as part of his evaluation ordered serial cardiac enzymes, 2D echo and consultation placed to cardiology. Patient was not started on heparin since he is already anticoagulated with Coumadin with an INR of 3.1 3. Acute kidney injury ?Superimposed on chronic kidney disease stage IV. Patient last creatinine obtained on was 1.95. Creatinine on admission was 2.76. Patient has been started on IV fluids with monitoring of electrolytes ordered. Patient was also on diuretics currently held 4. Hypokalemia ?Patient is on diuretics held and potassium replaced per protocol with monitoring ordered for a.m. 5. Chronic A. fib ?Rate controlled on systemic anticoagulation with Coumadin INR was 3.1 on admission Coumadin held INR ordered for a.m. 6. Obesity with BMI of 38.2 ?Weight loss advised 7. Congestive heart failure of undetermined type ?Patient is on diuretics held in view of his hypokalemia as well as worsening kidney function. 2D echo ordered for wall motion assessment as well as EF assessment 8. BPH ?Patient is on tamsulosin did continue 9. Depression with anxiety ?Patient is on SNRI did continue 10. Mild dementia ?Patient is on Namenda as well as Aricept did continue report 11. Gout ?Patient is on febuxostat did continue 12. Hypertension - Blood pressure controlled, home medications continued with dose adjustment as needed 13. Dyslipidemia -Patient is on statin therapy, continued at home dose 14. Chronic hypoxic respiratory failure ?Patient is on baseline home oxygen 2 L 15. DVT prophylaxis ?Patient is on Coumadin with slightly elevated INR now failure intervention warranted Charges/Coding Visit Charges Inpatient E&M: 52124 Init Hosp L3
--- NOTE | 2021-06-26 11:42 | ED.RN ---
Dr Butler aware sepsis alert triggered on admission. Per pt is not a sepsis alert, but labs are the result of the fall. No further orders at this time
--- NOTE | 2021-06-26 13:11 | ECHOD_ITS ---
Version 2 Reason For Study: ELEVATED TROPONIN Procedure This was a 2D Doppler, Color Flow transthoracic echocardiogram. The study was technically difficult. Exam performed portable in patient room. Left Ventricle Normal LV size. The estimated ejection fraction is 65 %. Unable to assess diastolic dysfunction. No regional wall motion abnormalities noted. Right Ventricle Normal RV size. Normal systolic function. Atria The left atrium is severely enlarged. The right atrium is moderately enlarged. No doppler evidence for ASD. Mitral Valve Mild-Moderate mitral valve stenosis. Trivial mitral valve insufficiency. Tricuspid Valve The tricuspid valve is not well visualized. There is no tricuspid stenosis. Unable to estimate RV systolic pressure due to inadequate jet, pulmonary artery pressure probably normal. Aortic Valve The aortic valve is not well visualized. Mild aortic stenosis. No aortic valve insufficiency. Pulmonic Valve There is no pulmonic valvular stenosis. No pulmonic valve insufficiency. MMode/2D Measurements & Calculations LVIDd: 6.2 cm IVSd: 1.6 cm Ao root diam: 3.1 cm LVIDs: 4.6 cm LVPWd: 1.8 cm RVDd: 3.7 cm FS: 25.8 % LAV(MOD-bp): 151.7 ml LA dimension(2D): 3.8 cm LA A4 area: 37.9 cm2 LAV(MOD-bp) Indexed: 67.4 ml/m2 LAV(MOD-sp2): 146.2 ml LAV(MOD-sp4): 146.5 ml Time Measurements MV dec time: 0.18 sec Doppler Measurements & Calculations MV E max mic: 168.7 cm/sec MV V2 max: 204.5 cm/sec MV P1/2t max mic: 198.8 cm/sec MV max P.7 mmHg MV P1/2t: 53.6 msec MV V2 mean: 97.5 cm/sec MV mean P.0 mmHg MV dec slope: 1086 cm/sec2 MV V2 VTI: 36.6 cm MVA(P1/2t): 4.1 cm2 Ao V2 max: 218.6 cm/sec LV V1 max: 78.9 cm/sec PA V2 max: 84.6 cm/sec Ao max P.1 mmHg LV V1 max P.5 mmHg Ao V2 mean: 164.7 cm/sec LV V1 mean P.5 mmHg Ao mean P.9 mmHg LV V1 mean: 58.0 cm/sec Ao V2 VTI: 38.2 cm LV V1 VTI: 14.4 cm TR max mic: 258.4 cm/sec TR max P.7 mmHg ECHO/Echo Complete Interpretation Summary The estimated ejection fraction is 65 %. Trivial mitral valve insufficiency. Mild aortic stenosis. Unable to assess diastolic dysfunction. Mild-Moderate mitral valve stenosis. Ordering Physician: Vasu Ruggiero Referring Physician: Elen Barriga Performed By: Day Goldberg RDCS, RVT
--- NOTE | 2021-06-26 13:11 | EKG12_ITS ---
Test Reason : Blood Pressure : / mmHG Vent. Rate : 098 BPM Atrial Rate : 105 BPM P-R Int : 000 ms QRS Dur : 146 ms QT Int : 348 ms P-R-T Axes : 000 048 -10 degrees QTc Int : 444 ms Atrial fibrillation with premature ventricular or aberrantly conducted complexes Right bundle branch block Abnormal ECG Confirmed by TEMO DURAND, LOIS ([id number]), development editor ELY RITCHIE ([id number]) on 07/01/2021 9:04:38 AM Referred By: TU Confirmed By:LOIS PLASCENCIA MD
[2021-06-26] MEDS: KCL 20MEQ in 0.9% NS 20 MEQ/1,000 ML IV.SOLN. 125 MEQ IV ×2 (14:11→21:33)
[2021-06-26] MEDS: Venlafaxine XR 75 MG Capsule PO (14:41)
[2021-06-26] MEDS: Memantine Hydrochloride 5 MG Tablet PO ×2 (14:41→21:34)
[2021-06-26] MEDS: Donepezil HCl 5 MG Tablet PO (14:41)
[2021-06-26] MEDS: Febuxostat 40 MG TABLET PO (14:41)
[2021-06-26 14:43] LABS: Troponin-I HS 207.6 pg/mL (3.0-78.5)
[2021-06-26] MEDS: Glucerna Shake 120 ML LIQUID PO ×2 (14:44→21:34)
[2021-06-26 17:09] LABS: Probe Check PASS; Specimen Processing Control PASS
[2021-06-26] MEDS: Nystatin Powder 15gm Bottle 1 APPLIC TOPICAL (21:32)
[2021-06-26] MEDS: Menthol/Lanolin/Calamine/Znox 113 GM Tube 1 APPLIC TOPICAL (21:33)
[2021-06-26] MEDS: DiphenhydrAMINE 25 MG Capsule PO (21:33)
[2021-06-26] MEDS: Tamsulosin HCl 0.4 MG Capsule PO (21:34)
[2021-06-26] MEDS: Carvedilol 6.25 MG Tablet PO (21:34)
[2021-06-26] MEDS: Atorvastatin Calcium 80 MG Tablet PO (21:45)
[2021-06-27] VITALS (24 sets, daily range): BP systolic 100–146; BP diastolic 56–94; PULSE 95–122; RESP 22–32; TEMP 36.2–37.1; O2SAT 88–99
[2021-06-27] MEDS: hydrOXYzine 10 MG Tablet PO (02:17)
[2021-06-27] MEDS: Albuterol 2.5 MG/3 ML VIAL.NEB. INHALATION (02:56)
[2021-06-27] MEDS: KCL 20MEQ in 0.9% NS 20 MEQ/1,000 ML IV.SOLN. 125 MEQ IV (05:13)
[2021-06-27 06:03] LABS: Absolute Lymphocyte Count 0.86 X10^3/uL (0.83-4.51); Absolute Neutrophil Count 14.9 X10^3/uL (2.0-7.7); Basophil# 0.05 X10^3/uL; Basophil% 0.3 % (0-1); Eosinophil# 0.01 X10^3/uL; Eosinophils% 0.1 % (0-5); Hematocrit 35.7 % (40-54); Hemoglobin 10.8 g/dL (13.0-16.5); Lymphocyte # 0.86 X10^3/ul (0.83-4.51); Lymphocyte % 5.1 % (19-41); Mean Corp Hgb Conc 30.3 g/dL (32-36); Mean Corpuscular Volume 105.6 fL (80-94); Mean Platelet Vol. 10.5 fl (6.2-12.0); Monocyte% 5.3 % (0-10); NRBC Flagged by Analyzer 0.2 % (0-5); Neutrophil % 87.7 % (47-70); Platelet Count 372 K/mm3 (150-450); RBC Distribution Width SD 64.9 fl (35.1-43.9); Red Blood Count 3.38 M/mm3 (4.6-6.2)
[2021-06-27 06:24] LABS: International Normalized Ratio 3.5; Prothrombin Time (Protime)PT. 33.9 SECONDS (11.7-14.9)
[2021-06-27 07:00] LABS: Anion Gap 11 (5-15); BUN 62 mg/dL (7-18); BUN/Creat Ratio 27.3 RATIO (10-20); Chloride 100 mmol/L (98-107); Cholesterol 127 mg/dL (200); Creatinine, Serum 2.27 mg/dL (0.70-1.30); EST Glomerular Filtration Rate 30 mL/min (>60); Est Glom Filt Rate - Afr Amer 36 mL/min (>60); Estimated Creatinine Clearance 24.69 ml/min; Glucose 120 mg/dL (74-106); High Density Lipoprotein 34 mg/dL; Potassium 3.6 mmol/L (3.5-5.1); Sodium Level 133 mmol/L (136-145); Triglycerides 97 mg/dL; Very Low Density Lipoprotein 19 mg/dL (5-40)
--- NOTE | 2021-06-27 07:49 | PN.HOSP_ITS ---
Subjective Subjective Patient seen breathing more labored compared to previous day. WBC count is trending down. Discontinued patient's IV fluid and reinitiated his home diuretics Objective Data Objective Data Vital Signs: Vital Signs Temp Pulse Resp BP Pulse Ox 97.8 F 113 H 28 H 120/70 94 06/27/21 07:05 06/27/21 07:05 06/27/21 07:05 06/27/21 07:05 06/27/21 07:05 Oxygen Flow Rate (L/min) 2 Oxygen Delivery Method Nasal Cannula Weight: 108.2 kg Body Mass Index (BMI) 35.9 Intake & Output: Intake and Output for Last 24 Hours 06/25/21 06/26/21 06/27/21 23:59 23:59 23:59 Intake Total 3320.83 / 3520.83 1398.33 / 1398.33 Output Total 475 / 475 Balance 3320.83 / 3520.83 923.33 / 923.33 Medical Nutrition Assessment Dietitian: Nutrition Therapy Diagnosis Start: 06/26/21 14:55 Freq: Status: Active Protocol: Document 06/26/21 15:27 AG (Rec: 06/26/21 15:27 AG [id number]) Nutrition Malnutrition Evidence of Malnutrition Exists No Intake Problem Inadequate Oral Intake Etiology (predicted) r/t reported decreased appetite Signs/Symptoms as evidenced by estimated energy intake meeting <75% of estimated nutritional needs Status Active Problem Recommendation Dietitian Recommendations/Changes continue regular diet until adequate PO intake is established. Continue Glucerna 120mL 4x/day. Lab / Micro Data Result Diagrams: 06/27/21 05:46 06/27/21 05:46 Labs: Laboratory Results - last 24 hr 06/26/21 07:55: WBC 24.8 H, RBC 3.41 L, Hgb 11.1 L, Hct 32.8 L, MCV 96.2 H, MCH 32.6 H, MCHC 33.8, RDW Std Deviation 57.4 H, RDW Coeff of Natalia 16.7 H, Plt Count 412, MPV 10.5, Immature Gran % (Auto) 1.900 H, Neut % (Auto) 85.6 H, Lymph % (Auto) 5.9 L, [place] % (Auto) 6.4, Eos % (Auto) 0.0, Baso % (Auto) 0.2, Absolute Neuts (auto) 21.2 H, Absolute Lymphs (auto) 1.47, Nucleated RBC % 0.2, Diff Path Review March06/26/21 07:55: PT 31.1 H, INR 3.1 06/26/21 07:55: Sodium 133 L, Potassium 2.8 L, Chloride 92 L, Carbon Dioxide 30.0, Anion Gap 11, BUN 72 H, Creatinine 2.76 H, Estim Creat Clear Calc 20.31, Est GFR (MDRD) Af Amer 29 L, Est GFR (MDRD) Non-Af 24 L, BUN/Creatinine Ratio 26.1 H, Glucose 198 H, Calcium 8.4 L, Total Bilirubin 1.70 H, AST 68 H, ALT 49, Alkaline Phosphatase 285 H, Troponin I High Sens 202.4 H*, Total Protein 7.2, Albumin 2.0 L, Globulin 5.2 H, Albumin/Globulin Ratio 0.4 L 06/26/21 09:46: Urine Color Yellow, Urine Clarity Clear, Urine pH 6.0, Ur Specific [place] 1.015, Urine Protein 100 H, Urine Glucose (UA) 50 H, Urine Ketones Negative, Urine Occult Blood 50 H, Urine Nitrite Negative, Urine Bilirubin Negative, Urine Urobilinogen 1 H, Ur Leukocyte Esterase Negative, Urine RBC 0-5 SEEN, Urine WBC 0-5 SEEN, Ur Squamous Epith Cells 0 SEEN, Urine Bacteria 0 SEEN, Urine Mucus 0 SEEN 06/26/21 13:50: Troponin I High Sens 207.6 H* 06/26/21 15:40: COVID-19 (ALEXI) Negative 06/27/21 05:46: WBC 17.0 H, RBC 3.38 L, Hgb 10.8 L, Hct 35.7 L, MCV 105.6 H D, MCH 32.0, MCHC 30.3 L D, RDW Std Deviation 64.9 H, RDW Coeff of Natalia 17.0 H, Plt Count 372, MPV 10.5, Immature Gran % (Auto) 1.500 H, Neut % (Auto) 87.7 H, Lymph % (Auto) 5.1 L, [place] % (Auto) 5.3, Eos % (Auto) 0.1, Baso % (Auto) 0.3, Absolute Neuts (auto) 14.9 H, Absolute Lymphs (auto) 0.86, Nucleated RBC % 0.2 06/27/21 05:46: PT 33.9 H, INR 3.5 06/27/21 05:46: Sodium 133 L, Potassium 3.6, Chloride 100, Carbon Dioxide 22.0, Anion Gap 11, BUN 62 H, Creatinine 2.27 H, Estim Creat Clear Calc 24.69, Est GFR (MDRD) Af Amer 36 L, Est GFR (MDRD) Non-Af 30 L, BUN/Creatinine Ratio 27.3 H, Glucose 120 H, Calcium 8.0 L, Triglycerides 97, Cholesterol 127, LDL Cholesterol 74, VLDL Cholesterol 19, HDL Cholesterol 34 L Radiography Diagnostic Testing: Radiology Impression Brain CT 06/26/21 07:38 IMPRESSION: Chronic involutional changes of the brain. Electronically Signed: Sarath Govea MD at 8:22 EDT , Service support , Chest X-Ray 06/26/21 09:47 IMPRESSION: Increased markings at the lung bases suggestive of either early atelectasis and/or scarring with blunting of the right costophrenic angle. Cardiomegaly. Electronically Signed: Sarath Govea MD at 10:39 EDT , Service support , Echocardiogram 06/26/21 13:11 Interpretation Summary The estimated ejection fraction is 65 %. Trivial mitral valve insufficiency. Mild aortic stenosis. Unable to assess diastolic dysfunction. Mild-Moderate mitral valve stenosis. Ordering Physician: Vasu Ruggiero Referring Physician: Elen Barriga Performed By: Day Goldberg, RDCS, RVT Physical Exam Narrative GENERAL: cooperative HEENT: Atraumatic; EYES; Anicteric, Normal Conjunctiva NECK; supple, normal thyroid, RESPIRATORY: Diminished to auscultation CARDIOVASCULAR: Irregular S1 S2, GI: soft, normoactive bowel sounds, : No Renal angle tenderness; EXTREMITIES: No edema, no clubbing, MUSCULOSKELETAL: no muscle waisting NEURO: Awake; no lateralizing signs. SKIN: No Rash PSYCH; Flat affect Assessment & Plan Assessment/Plan (1) Non-STEMI (non-ST elevated myocardial infarction): (2) Hypokalemia: (3) Chronic kidney disease, stage IV (severe): (4) Atrial fibrillation: QUALIFIERS: Atrial fibrillation type: longstanding persistent Qualified Code(s): I48.11 - Longstanding persistent atrial fibrillation (5) CHF (congestive heart failure): QUALIFIERS: Heart failure chronicity: chronic Heart failure type: diastolic Qualified Code(s): I50.32 - Chronic diastolic (congestive) heart failure (6) Anemia: PLAN: Patient is an 81-year-old gentleman admitted with a fall found to have elevated cardiac enzymes as well as leukocytosis 1. Acute mechanical nonsyncopal fall ?Patient has been admitted to regular nursing floor requested for PT OT eval and director of social work to assist with discharge planning 2. Elevated troponin ?Do suspect NSTEMI type II as a result of worsening kidney function, patient denies any chest pain no shortness of breath EKG no acute changes. Patient has been admitted to telemetry for continuous monitoring as part of his evaluation ordered serial cardiac enzymes, 2D echo and consultation placed to cardiology. Patient was not started on heparin since he is already anticoagulated with Coumadin with an INR of 3.1 ?06/27/2021 2D echo obtained did not demonstrate any regional wall motion abnormality Case was discussed with cardiology Dr. Vergara who was was of the view that patient's elevated troponin was possibly secondary to his impaired kidney function. 3. Acute kidney injury ?Superimposed on chronic kidney disease stage IV. Patient last creatinine obtained on 061 321 was 1.95. Creatinine on admission was 2.76. Patient has been started on IV fluids with monitoring of electrolytes ordered. Patient was also on diuretics currently held -06/27/2021; resumed diuretics after patient went into respiratory distress 4. Hypokalemia ?Patient is on diuretics held and potassium replaced per protocol with monitoring ordered for a.m. 5. Chronic A. fib ?Rate controlled on systemic anticoagulation with Coumadin INR was 3.1 on admission Coumadin held INR ordered for a.m. 6. Obesity with BMI of 38.2 ?Weight loss advised 7. Acute on chronic congestive heart failure with preserved ejection fraction ?Patient is on diuretics held in view of his hypokalemia as well as worsening kidney function. 2D echo ordered for wall motion assessment as well as EF assessment -06/27/2021. Patient diuretics have been held on admission however he went into respiratory distress resulting in initiation of his diuretics. Echo obtained the day prior demonstrated EF of 65% 8. BPH ?Patient is on tamsulosin did continue 9. Depression with anxiety ?Patient is on SNRI did continue 10. Mild dementia ?Patient is on Namenda as well as Aricept did continue report 11. Gout ?Patient is on febuxostat did continue 12. Hypertension - Blood pressure controlled, home medications continued with dose adjustment as needed 13. Dyslipidemia -Patient is on statin therapy, continued at home dose 14. Chronic hypoxic respiratory failure ?Patient is on baseline home oxygen 2 L 15. DVT prophylaxis ?Patient is on Coumadin with slightly elevated INR now failure intervention warranted 16. Leukocytosis ?Possibly stress related patient does not have any source of infection monitoring with daily CBC count Advance planning; did discuss with the patient and family regarding advanced directives as well as CODE STATUS. Did explain the various scenarios involved ( FULL CODE, DNR CCA, DNR CCA with no intubation, and DNR CC and what each meant) patient and family elected for full code with CPR and intubation if warranted. Order was placed. Time spent on discussion 18 minutes. Charges/Coding Visit Charges Inpatient E&M: 68952 Subs Hosp L3 Procedures Hospitalists Procedures: 38512 Advncd Care Plan 30 Min
[2021-06-27] MEDS: Cholecalciferol (VIT D3) 25 MCG TABLET (1,000 UNITS) 50 MCG PO (08:34)
[2021-06-27] MEDS: Venlafaxine XR 75 MG Capsule PO (08:34)
[2021-06-27] MEDS: Febuxostat 40 MG TABLET PO (08:34)
[2021-06-27] MEDS: Memantine Hydrochloride 5 MG Tablet PO ×2 (08:34→22:40)
[2021-06-27] MEDS: Multivitamins,Therapeutic Tablet 1 TABLET PO (08:34)
[2021-06-27] MEDS: Aspirin E.C. 81 MG Tablet PO (08:34)
[2021-06-27] MEDS: Donepezil HCl 5 MG Tablet PO (08:34)
[2021-06-27] MEDS: Carvedilol 6.25 MG Tablet PO ×2 (08:39→22:40)
[2021-06-27] MEDS: Glucerna Shake 120 ML LIQUID PO ×2 (08:39→22:41)
[2021-06-27] MEDS: Nystatin Powder 15gm Bottle 1 APPLIC TOPICAL ×2 (08:44→22:42)
--- NOTE | 2021-06-27 10:25 | CASEMGMT ---
[employer] Face to Face with patient for initial transition planning/care coordination assessment. RN CM introduced self and role at [facility]. Patient lying in bed, alert and oriented. Patient willing to participate in assessment and is able to answer all questions appropriately. Care providers, pharmacy, and demographics verified. Patient wishes to discharge home, but will to go to SNF if need. SW updated for potential SNF referral. Patient states he has no further needs or concerns at this time. CM to follow for discharge planning needs that may arise. PCP: Linus Specialists: Regina Crew Person; Ravindra air deodorizer servicer Preferred Pharmacy: [facility] Insurance: [employer], [facility], and [facility] Prescription Benefit: yes Living Will/HPOA: none LNOK: Living Arrangements: Patient lives with in a 2 story home with bed and bath on first floor, 3 steps and railing to enter. Patient states he is mostly independent at home but assists at times. Transportation: DME/HHC: Patient has shower chair, walker, cpap, nebulizer, and home oxygen through [facility] with portable concentrator at 2lpm. NO previous SNF of [facility] Disposition Plan: TBD, HHC vs SNF pending therapy. Deisy STEWARD, RN, CM
[2021-06-27] MEDS: Metolazone 2.5 MG Tablet PO (11:42)
[2021-06-27] MEDS: Menthol/Lanolin/Calamine/Znox 113 GM Tube 1 APPLIC TOPICAL ×2 (11:42→22:47)
[2021-06-27] MEDS: Furosemide 40 MG Tablet PO ×2 (11:42→22:39)
[2021-06-27 12:29] LABS: Pathologist Review Reviewed
--- NOTE | 2021-06-27 12:30 | CASEMGMT ---
Therapy said patient did not do well with therapy and needs [place] go [place]. SW met with patient and his . Introduced self and role at [facility]. SW discussed SNF and they agreed patient needs to go somewhere. SW provided them with a list of SNF providers including quality and resource use data and consistent with the patient?s preferred geographic region, medical needs, and insurance network. JENIFFER explained Medicare coverage for SNFS. Their first choice is [facility] and second is [facility]. JENIFFER told them SW will make referral and get back with them. JENIFFER faxed referral and also called Bibi regarding referral. Await response. Felipa Campos [employer] ENMAN[employer]EL
--- NOTE | 2021-06-27 13:16 | CASEMGMT ---
Palliative screening tool completed for [facility]. Patient meets criteria for palliative consult. Hospitalist updated and order received for palliative consult. MOE CM faxed referral to [facility].
--- NOTE | 2021-06-27 14:41 | CASEMGMT ---
Therapy said patient did not do well with therapy and needs to go to a alf. SW met with patient and his . Introduced self and role at [facility]. SW discussed SNF and they agreed patient needs to go somewhere. SW provided them with a list of SNF providers including quality and resource use data and consistent with the patient?s preferred geographic region, medical needs, and insurance network. JENIFFER explained Medicare coverage for SNFS. Their first choice is [facility] and second is [facility]. JENIFFER told them SW will make referral and get back with them. JENIFFER faxed referral and also called Bibi regarding referral. Await response. Felipa Campos EDUCATION LIAISON ENMANUEL
--- NOTE | 2021-06-27 15:24 | CASEMGMT ---
JENIFFER received a call from Bibi at [facility] and they can accept patient. JENIFFER told her he may come over the weekend. JENIFFER copied patient's COVID vaccine card and tried to fax it. The fax would not go through so JENIFFER called Bibi and let her know the dates and which vaccine. She asked that JENIFFER send it with patient's packet. SW put the copy of his vaccine card in his SNF packet. Green sheet on chart with patient is ready. Plan: d/c to [facility] when ready under skilled level of care. Felipa Campos [employer]EL
[2021-06-27] MEDS: Tamsulosin HCl 0.4 MG Capsule PO (22:39)
[2021-06-27] MEDS: DiphenhydrAMINE 25 MG Capsule PO (22:40)
[2021-06-27] MEDS: Atorvastatin Calcium 80 MG Tablet PO (22:40)
[2021-06-27 23:16] LABS: Bedside Glucose 119 mg/dL (70-110)
[2021-06-28] VITALS (16 sets, daily range): BP systolic 105–132; BP diastolic 64–85; PULSE 88–131; RESP 20–22; TEMP 36.4–36.8; O2SAT 94–96
[2021-06-28 07:21] LABS: Bedside Glucose 117 mg/dL (70-110)
[2021-06-28 08:01] LABS: Absolute Lymphocyte Count 0.56 X10^3/uL (0.83-4.51); Basophil# 0.05 X10^3/uL; Basophil% 0.3 % (0-1); Eosinophil# 0.11 X10^3/uL; Eosinophils% 0.6 % (0-5); Hematocrit 31.1 % (40-54); Lymphocyte # 0.56 X10^3/ul (0.83-4.51); Mean Corp Hgb Conc 32.2 g/dL (32-36); Mean Corpuscular Hgb 31.4 pg (27.0-32.0); Mean Corpuscular Volume 97.8 fL (80-94); Mean Platelet Vol. 11.5 fl (6.2-12.0); Monocyte# 0.57 X10^3/uL; Monocyte% 3.1 % (0-10); NRBC Flagged by Analyzer 0.4 % (0-5); Neutrophil # 16.98 X10^3/uL (2.7-7.7); Neutrophil % 91.3 % (47-70); POSITIVE DIFFERENTIAL YES; Platelet Count 357 K/mm3 (150-450); RBC Distribution Width CV 16.7 % (11.6-14.6); RBC Distribution Width SD 57.9 fl (35.1-43.9); Red Blood Count 3.18 M/mm3 (4.6-6.2); White Blood Count 18.6 K/mm3 (4.4-11.0)
[2021-06-28 08:06] LABS: Differential Indicated SCAN CRITERIA MET
[2021-06-28 08:24] LABS: Anion Gap 11 (5-15); BUN 74 mg/dL (7-18); BUN/Creat Ratio 29.7 RATIO (10-20); Calcium,Total 8.6 mg/dL (8.5-10.1); Chloride 97 mmol/L (98-107); Creatinine, Serum 2.49 mg/dL (0.70-1.30); EST Glomerular Filtration Rate 27 mL/min (>60); Est Glom Filt Rate - Afr Amer 32 mL/min (>60); Estimated Creatinine Clearance 22.51 ml/min; Glucose 100 mg/dL (74-106); Potassium 3.8 mmol/L (3.5-5.1); Sodium Level 131 mmol/L (136-145)
[2021-06-28] MEDS: Glucerna Shake 120 ML LIQUID PO ×3 (08:52→21:19)
[2021-06-28] MEDS: Nystatin Powder 15gm Bottle 1 APPLIC TOPICAL ×2 (08:55→21:18)
[2021-06-28] MEDS: Febuxostat 40 MG TABLET PO (08:55)
[2021-06-28] MEDS: Carvedilol 6.25 MG Tablet PO ×2 (08:55→21:19)
[2021-06-28] MEDS: Furosemide 40 MG Tablet PO (08:55)
[2021-06-28] MEDS: Menthol/Lanolin/Calamine/Znox 113 GM Tube 1 APPLIC TOPICAL ×2 (08:55→21:19)
[2021-06-28] MEDS: Donepezil HCl 5 MG Tablet PO (08:55)
[2021-06-28] MEDS: Cholecalciferol (VIT D3) 25 MCG TABLET (1,000 UNITS) 50 MCG PO (08:56)
[2021-06-28] MEDS: Aspirin E.C. 81 MG Tablet PO (08:56)
[2021-06-28] MEDS: Multivitamins,Therapeutic Tablet 1 TABLET PO (08:56)
[2021-06-28] MEDS: Venlafaxine XR 75 MG Capsule PO (08:56)
[2021-06-28] MEDS: Memantine Hydrochloride 5 MG Tablet PO ×2 (08:57→21:19)
--- NOTE | 2021-06-28 09:47 | DS.PCM_ITS ---
Providers Date of Admission: 06/26/21 Primary Care Physician: Elen Barriga Reason For Visit: FALL, KARL, HYPOKALEMIA, ELEVATED TROPONIN Diagnosis Discharge Diagnosis (1) Non-STEMI (non-ST elevated myocardial infarction): Status: Acute Code(s): I21.4 - Non-ST elevation (NSTEMI) myocardial infarction (2) Hypokalemia: Status: Acute Code(s): E87.6 - Hypokalemia (3) Chronic kidney disease, stage IV (severe): Status: Chronic Code(s): N18.4 - Chronic kidney disease, stage 4 (severe) (4) Atrial fibrillation: Status: Chronic Code(s): I48.91 - Unspecified atrial fibrillation Qualifiers: Atrial fibrillation type: longstanding persistent Qualified Code(s): I48.11 - Longstanding persistent atrial fibrillation (5) CHF (congestive heart failure): Status: Chronic Code(s): I50.9 - Heart failure, unspecified Qualifiers: Heart failure chronicity: chronic Heart failure type: diastolic Qualif ied Code(s): I50.32 - Chronic diastolic (congestive) heart failure (6) Anemia: Status: Chronic Code(s): D64.9 - Anemia, unspecified Medications at Discharge Home Medications atorvastatin 80 mg tablet 40 mg PO QHS 03/23/19 carvedilol 6.25 mg tablet 6.25 mg PO BID 03/23/19 cholecalciferol (vitamin D3) 50 mcg (2,000 unit) capsule 2,000 unit PO DAILY 03/23/19 donepezil 5 mg tablet 5 mg PO DAILY 03/23/19 melatonin 10 mg capsule 10 mg PO HS PRN 03/23/19 warfarin 4 mg tablet 10 mg PO MOFR 03/23/19 torsemide 20 mg tablet 20 mg PO BID tab 05/15/20 inhalat.spacing dev,med. mask #1 ea 01/24/21 albuterol sulfate 90 mcg/actuation aerosol inhaler 2 puff INHALATION Q6H PRN 03/21/21 diphenhydramine HCl 25 mg tablet 25 mg PO QHS 03/21/21 febuxostat 40 mg tablet 40 mg PO DAILY 03/21/21 multivitamin 1 tab PO DAILY 03/21/21 hydroxyzine HCl 10 mg tablet 10 mg PO TID-QID PRN #360 tab 04/01/21 warfarin 8 mg PO SUTUWETHSA 04/03/21 venlafaxine 75 mg PO DAILY 04/08/21 memantine 5 mg tablet 5 mg PO BID #180 tab 05/13/21 metolazone 2.5 mg tablet 2.5 mg PO Q OTHER DAY 05/13/21 tamsulosin 0.4 mg capsule 0.4 mg PO QHS #90 cap 05/13/21 Hospital Course Procedures 2-D Echocardiogram Summary of Care Provided Minutes Spent on Discharge: 35 Hospital Course: Patient is an 81-year-old gentleman admitted with a fall found to have elevated cardiac enzymes as well as leukocytosis 1. Acute mechanical nonsyncopal fall ?Patient has been admitted to regular nursing floor requested for PT OT eval and social studies department chair to assist with discharge planning ?Patient was [place] facility once insurance precertification was obtained. 2. Elevated troponin ?Do suspect NSTEMI type II as a result of worsening kidney function, patient denies any chest pain no shortness of breath EKG no acute changes. Patient has been admitted to telemetry for continuous monitoring as part of his evaluation ordered serial cardiac enzymes, 2D echo and consultation placed to cardiology. Patient was not started on heparin since he is already anticoagulated with Coumadin with an INR of 3.1 ?06/27/2021 2D echo obtained did not demonstrate any regional wall motion abnormality Case was discussed with cardiology Dr. Vergara who was was of the view that patient's elevated troponin was possibly secondary to his impaired kidney function. 3. Acute kidney injury ?Superimposed on chronic kidney disease stage IV. Patient last creatinine obtained on was 1.95. Creatinine on admission was 2.76. Patient has been started on IV fluids with monitoring of electrolytes ordered. Patient was also on diuretics currently held -06/27/2021; resumed diuretics after patient went into respiratory distress 4. Hypokalemia ?Patient is on diuretics held and potassium replaced per protocol with monitoring ordered for a.m. 5. Chronic A. fib ?Rate controlled on systemic anticoagulation with Coumadin INR was 3.1 on admission Coumadin held INR ordered for a.m. 6. Obesity with BMI of 38.2 ?Weight loss advised 7. Acute on chronic congestive heart failure with preserved ejection fraction ?Patient is on diuretics held in view of his hypokalemia as well as worsening kidney function. 2D echo ordered for wall motion assessment as well as EF assessment -06/27/2021. Patient diuretics have been held on admission however he went into respiratory distress resulting in initiation of his diuretics. Echo obtained the day prior demonstrated EF of 65% 8. BPH ?Patient is on tamsulosin did continue 9. Depression with anxiety ?Patient is on SNRI did continue 10. Mild dementia ?Patient is on Namenda as well as Aricept did continue report 11. Gout ?Patient is on febuxostat did continue 12. Hypertension - Blood pressure controlled, home medications continued with dose adjustment as needed 13. Dyslipidemia -Patient is on statin therapy, continued at home dose 14. Chronic hypoxic respiratory failure ?Patient is on baseline home oxygen 2 L 15. DVT prophylaxis ?Patient is on Coumadin with slightly elevated INR now failure intervention warranted 16. Leukocytosis ?Possibly stress related patient does not have any source of infection monitoring with daily CBC count Physical Exam Narrative GENERAL: cooperative HEENT: Atraumatic; EYES; Anicteric, Normal Conjunctiva NECK; supple, normal thyroid, RESPIRATORY: Diminished to auscultation CARDIOVASCULAR: Irregular S1 S2, GI: soft, normoactive bowel sounds, NEURO: Awake; no lateralizing signs. SKIN: No Rash PSYCH; Flat affect Medical Records Data Medical Nutrition Assessment Dietitian: Nutrition Therapy Diagnosis Start: 06/26/21 14:55 Freq: Status: Active Protocol: Document 06/26/21 15:27 (Rec: 06/26/21 15:27 [id number]) Nutrition Malnutrition Evidence of Malnutrition Exists No Intake Problem Inadequate Oral Intake Etiology (predicted) r/t reported decreased appetite Signs/Symptoms as evidenced by estimated energy intake meeting <75% of estimated nutritional needs Status Active Problem Recommendation Dietitian Recommendations/Changes continue regular diet until adequate PO intake is established. Continue Glucerna 120mL 4x/day. Weight / BMI Weight Weight: 109.854 kg Body Mass Index (BMI) 35.9 ABG / Lab / Microbiology Data Result Diagrams: 06/28/21 07:10 06/28/21 07:10 Laboratory: Laboratory Results - last 24 hr 06/26/21 07:55: Diff Path Review Reviewed 06/27/21 22:38: POC Glucose 119 H 06/28/21 06:16: POC Glucose 117 H 06/28/21 07:10: WBC 18.6 H, RBC 3.18 L, Hgb 10.0 L, Hct 31.1 L, MCV 97.8 H D, MCH 31.4, MCHC 32.2 D, RDW Std Deviation 57.9 H, RDW Coeff of Natalia 16.7 H, Plt Count 357, MPV 11.5, Immature Gran % (Auto) 1.700 H, Neut % (Auto) 91.3 H, Lymph % (Auto) 3.0 L, [place] % (Auto) 3.1, Eos % (Auto) 0.6, Baso % (Auto) 0.3, Absolute Neuts (auto) 17.0 H, Absolute Lymphs (auto) 0.56 L, Nucleated RBC % 0.4 06/28/21 07:10: Sodium 131 L, Potassium 3.8, Chloride 97 L, Carbon Dioxide 23.0, Anion Gap 11, BUN 74 H, Creatinine 2.49 H, Estim Creat Clear Calc 22.51, Est GFR (MDRD) Af Amer 32 L, Est GFR (MDRD) Non-Af 27 L, BUN/Creatinine Ratio 29.7 H, Glucose 100, Calcium 8.6 D/C Instructions Discharge Diet: No restrictions, 8 Cup Fluid Restriction and 2000 mg Sodium Diet Discharge Activity: Return to Normal Activity Call your doctor if you observe: Fever of 101 or Higher, Shortness of breath, Fainting spells and Chest pain Meaningful Use Info Meaningful Use Diagnoses (Choose all that apply): None applicable and CHF CHF HUE/ARB ordered at discharge?: No Reason HUE/ARB not ordered?: Worsening renal disease Documented LVEF (%): 65 Discharge Plan Admission Admit Date/Time: 06/26/21 11:42 Attending Provider: Vasu Ruggiero Primary Care Provider: Elen Barriga Discharge Orders/Prescriptions Prescriptions: Continued melatonin 10 mg capsule 10 mg PO HS PRN (Reason: Sleep) RF: 0 donepezil 5 mg tablet 5 mg PO DAILY RF: 0 cholecalciferol (vitamin D3) 2,000 unit capsule 2,000 unit PO DAILY RF: 0 warfarin 4 mg tablet 10 mg PO MOFR RF: 0 Hold Instructions: Resume on 04/16/21. carvedilol 6.25 mg tablet 6.25 mg PO BID RF: 0 atorvastatin 80 mg tablet 40 mg PO QHS RF: 0 torsemide 20 mg tablet 20 mg PO BID RF: 0 febuxostat 40 mg tablet 40 mg PO DAILY RF: 0 diphenhydramine HCl [Allergy (diphenhydramine)] 25 mg tablet 25 mg PO QHS RF: 0 multivitamin Tablet 1 tab PO DAILY RF: 0 albuterol sulfate 90 mcg/actuation HFA aerosol inhaler 2 puff inhalation Q6H PRN (Reason: Shortness Of Breath) RF: 0 metolazone 2.5 mg tablet 2.5 mg PO Q OTHER DAY RF: 0 memantine [Namenda] 5 mg tablet 5 mg PO BID Qty: 180 RF: 3 tamsulosin [Flomax] 0.4 mg capsule 0.4 mg PO QHS Qty: 90 RF: 3 warfarin 4 mg Tablet 8 mg PO SUTUWETHSA RF: 0 Hold Instructions: Resume on 04/16/21. venlafaxine 75 mg capsule,extended release 24hr 75 mg PO DAILY RF: 0 (DME) Space Chamber with Medium Mask Spacer See Rx Instructions .ROUTE .MEDSUPPLY Qty: 1 RF: 1 hydroxyzine HCl 10 mg tablet 10 mg PO TID-QID PRN (Reason: anxiety) Qty: 360 RF: 3 Discontinued Atarax BID RF: 0 Referrals / Follow Up: Elen Barriga [Primary Care Provider] - Within 2 Weeks Disposition Disposition (needs filled in before D/C Order can be placed): [facility] Facility Charges/Coding Visit Charges Inpatient E&M: 30011 Disch Hosp
--- NOTE | 2021-06-28 09:51 | TREXTCAR_ITS ---
Diet 06/26/21 13:11 Diet: Regular - General Food consistency:: Regular Liquid Consistency:: Regular/Thin Routine Orders/Code Status Code Status: Full Code Wound(s) scrotum: Wound Type: Skin Tear Therapies Physical Therapy: Eval and Treat Occupational Therapy: Eval and Treat Speech Therapy: Eval and Treat Problem/Diagnosis (1) Non-STEMI (non-ST elevated myocardial infarction): Status: Acute (2) Hypokalemia: Status: Acute (3) Chronic kidney disease, stage IV (severe): Status: Chronic (4) Atrial fibrillation: Status: Chronic (5) CHF (congestive heart failure): Status: Chronic (6) Anemia: Status: Chronic Allergies/Procedures Done in Hospital Allergies No Known Allergies Allergy (Verified 04/26/21 10:41) Type of Care/Length of Stay Estimated LOS: Convalescent Care Less Than 30 days Type of Care Needed: Skilled Rehab Potential: Fair Prognosis: Fair Additional Orders/Day of Discharge Day of Discharge: 06/28/21 Dietary and Speech Recommendations Dietitian Recommendations/Changes: continue regular diet until adequate PO intake is established. Continue Glucerna 120mL 4x/day. Discharge Plan Admission Admit Date/Time: 06/26/21 11:42 Attending Provider: Vasu Ruggiero Primary Care Provider: Elen Barriga Discharge Orders/Prescriptions Prescriptions: Continued melatonin 10 mg capsule 10 mg PO HS PRN (Reason: Sleep) RF: 0 donepezil 5 mg tablet 5 mg PO DAILY RF: 0 cholecalciferol (vitamin D3) 2,000 unit capsule 2,000 unit PO DAILY RF: 0 warfarin 4 mg tablet 10 mg PO MOFR RF: 0 Hold Instructions: Resume on 04/16/21. carvedilol 6.25 mg tablet 6.25 mg PO BID RF: 0 atorvastatin 80 mg tablet 40 mg PO QHS RF: 0 torsemide 20 mg tablet 20 mg PO BID RF: 0 febuxostat 40 mg tablet 40 mg PO DAILY RF: 0 diphenhydramine HCl [Allergy (diphenhydramine)] 25 mg tablet 25 mg PO QHS RF: 0 multivitamin Tablet 1 tab PO DAILY RF: 0 albuterol sulfate 90 mcg/actuation HFA aerosol inhaler 2 puff inhalation Q6H PRN (Reason: Shortness Of Breath) RF: 0 metolazone 2.5 mg tablet 2.5 mg PO Q OTHER DAY RF: 0 memantine [Namenda] 5 mg tablet 5 mg PO BID Qty: 180 RF: 3 tamsulosin [Flomax] 0.4 mg capsule 0.4 mg PO QHS Qty: 90 RF: 3 warfarin 4 mg Tablet 8 mg PO SUTUWETHSA RF: 0 Hold Instructions: Resume on 04/16/21. venlafaxine 75 mg capsule,extended release 24hr 75 mg PO DAILY RF: 0 (DME) Space Chamber with Medium Mask Spacer See Rx Instructions .ROUTE .MEDSUPPLY Qty: 1 RF: 1 hydroxyzine HCl 10 mg tablet 10 mg PO TID-QID PRN (Reason: anxiety) Qty: 360 RF: 3 Discontinued Atarax BID RF: 0 Referrals / Follow Up: Elen Barriga [Primary Care Provider] - Within 2 Weeks Disposition Disposition (needs filled in before D/C Order can be placed): [facility]
[2021-06-28 10:48] LABS: Magnesium 1.7 mg/dL (1.6-2.6)
--- NOTE | 2021-06-28 11:13 | PN.HOSP_ITS ---
Subjective Subjective Plan was for patient to have been discharged to halfway facility however he was found to have multiple runs of nonsustained VT on telemetry. Stat magnesium obtained came back 1.7. Decision was made to administer 2 g of magnesium sulfate and patient discharge discontinued Objective Data Objective Data Vital Signs: Vital Signs Temp Pulse Resp BP Pulse Ox 97.5 F L 122 H 20 H 114/80 95 06/28/21 08:50 06/28/21 10:06 06/28/21 08:50 06/28/21 08:50 06/28/21 08:50 Oxygen Flow Rate (L/min) 2 Oxygen Delivery Method Room Air Weight: 109.854 kg Body Mass Index (BMI) 35.9 Intake & Output: Intake and Output for Last 24 Hours 06/26/21 06/27/21 06/28/21 23:59 23:59 23:59 Intake Total 3320.83 / 3520.83 2572.50 / 2572.50 Output Total 925 / 1250 325 / 325 Balance 3320.83 / 3520.83 1647.50 / 1322.50 -325 / -325 Medical Nutrition Assessment Dietitian: Nutrition Therapy Diagnosis Start: 06/26/21 1 4:55 Freq: Status: Active Protocol: Document 06/26/21 15:27 AG (Rec: 06/26/21 15:27 [id number]) Nutrition Malnutrition Evidence of Malnutrition Exists No Intake Problem Inadequate Oral Intake Etiology (predicted) r/t reported decreased appetite Signs/Symptoms as evidenced by estimated energy intake meeting <75% of estimated nutritional needs Status Active Problem Recommendation Dietitian Recommendations/Changes continue regular diet until adequate PO intake is established. Continue Glucerna 120mL 4x/day. Lab / Micro Data Result Diagrams: 06/28/21 07:10 06/28/21 07:10 Labs: Laboratory Results - last 24 hr 06/26/21 07:55: Diff Path Review Reviewed 06/27/21 22:38: POC Glucose 119 H 06/28/21 06:16: POC Glucose 117 H 06/28/21 07:10: WBC 18.6 H, RBC 3.18 L, Hgb 10.0 L, Hct 31.1 L, MCV 97.8 H D, MCH 31.4, MCHC 32.2 D, RDW Std Deviation 57.9 H, RDW Coeff of Natalia 16.7 H, Plt Count 357, MPV 11.5, Immature Gran % (Auto) 1.700 H, Neut % (Auto) 91.3 H, Lymph % (Auto) 3.0 L, [place] % (Auto) 3.1, Eos % (Auto) 0.6, Baso % (Auto) 0.3, Absolute Neuts (auto) 17.0 H, Absolute Lymphs (auto) 0.56 L, Nucleated RBC % 0.4 06/28/21 07:10: Sodium 131 L, Potassium 3.8, Chloride 97 L, Carbon Dioxide 23.0, Anion Gap 11, BUN 74 H, Creatinine 2.49 H, Estim Creat Clear Calc 22.51, Est GFR (MDRD) Af Amer 32 L, Est GFR (MDRD) Non-Af 27 L, BUN/Creatinine Ratio 29.7 H, Glucose 100, Calcium 8.6 06/28/21 07:10: Magnesium 1.7 Physical Exam Narrative GENERAL: cooperative but appears frail HEENT: Atraumatic; EYES; Anicteric, Normal Conjunctiva NECK; supple, normal thyroid, RESPIRATORY: Diminished to auscultation CARDIOVASCULAR: Irregular S1 S2, GI: soft, normoactive bowel sounds, NEURO: Awake; no lateralizing signs. SKIN: No Rash PSYCH; Flat affect Assessment & Plan Assessment/Plan (1) Non-STEMI (non-ST elevated myocardial infarction): (2) Hypokalemia: (3) Chronic kidney disease, stage IV (severe): (4) Atrial fibrillation: QUALIFIERS: Atrial fibrillation type: longstanding persistent Qualified Code(s): I48.11 - Longstanding persistent atrial fibrillation (5) CHF (congestive heart failure): QUALIFIERS: Heart failure type: diastolic Heart failure chronicity: chronic Qualified Code(s): I50.32 - Chronic diastolic (congestive) heart failure (6) Anemia: PLAN: Patient is an 81-year-old gentleman admitted with a fall found to have elevated cardiac enzymes as well as leukocytosis 1. Acute mechanical nonsyncopal fall ?Patient has been admitted to regular nursing floor requested for PT OT eval and community mental health social worker to assist with discharge planning 2. Elevated troponin ?Do suspect NSTEMI type II as a result of worsening kidney function, patient denies any chest pain no shortness of breath EKG no acute changes. Patient has been admitted to telemetry for continuous monitoring as part of his evaluation ordered serial cardiac enzymes, 2D echo and consultation placed to cardiology. Patient was not started on heparin since he is already anticoagulated with Coumadin with an INR of 3.1 ?06/27/2021 2D echo obtained did not demonstrate any regional wall motion abnormality Case was discussed with cardiology Dr. Vergara who was was of the view that patient's elevated troponin was possibly secondary to his impaired kidney function. 3. Acute kidney injury ?Superimposed on chronic kidney disease stage IV. Patient last creatinine o btained on 06 321 was 1.95. Creatinine on admission was 2.76. Patient has been started on IV fluids with monitoring of electrolytes ordered. Patient was also on diuretics currently held -06/27/2021; resumed diuretics after patient went into respiratory distress 4. Hypokalemia ?Patient is on diuretics held and potassium replaced per protocol with monitoring ordered for a.m. 5. Nonsustained runs of VT ?Electrolytes obtained demonstrated magnesium of 1.7. An order was given for magnesium sulfate 2 g x 1. Patient anticipated discharge discontinued 6. Acute on chronic congestive heart failure with preserved ejection fraction ?Patient is on diuretics held in view of his hypokalemia as well as worsening kidney function. 2D echo ordered for wall motion assessment as well as EF assessment -06/27/2021. Patient diuretics have been held on admission however he went into respiratory distress resulting in initiation of his diuretics. Echo obtained the day prior demonstrated EF of 65% 7. BPH ?Patient is on tamsulosin did continue 8. Chronic A. fib ?Rate controlled on systemic anticoagulation with Coumadin INR was 3.1 on admission Coumadin held INR ordered for a.m. 9. Depression with anxiety ?Patient is on SNRI did continue 10. Mild dementia ?Patient is on Namenda as well as Aricept did continue report 11. Gout ?Patient is on febuxostat did continue 12. Hypertension - Blood pressure controlled, home medications continued with dose adjustment as needed 13. Dyslipidemia -Patient is on statin therapy, continued at home dose 14. Chronic hypoxic respiratory failure ?Patient is on baseline home oxygen 2 L 15. DVT prophylaxis ?Patient is on Coumadin with slightly elevated INR now failure intervention warranted 16. Leukocytosis ?Possibly stress related patient does not have any source of infection monitoring with daily CBC count 17. Obesity with BMI of 38.2 ?Weight loss advised Charges/Coding Visit Charges Inpatient E&M: 55415 Subs Hosp L2
[2021-06-28 11:14] LABS: International Normalized Ratio 3.8; Prothrombin Time (Protime)PT. 36.5 SECONDS (11.7-14.9)
[2021-06-28] MEDS: hydrOXYzine 10 MG Tablet PO ×2 (12:25→21:20)
[2021-06-28] MEDS: Atorvastatin Calcium 80 MG Tablet PO (21:19)
[2021-06-28] MEDS: Tamsulosin HCl 0.4 MG Capsule PO (21:19)
[2021-06-28] MEDS: DiphenhydrAMINE 25 MG Capsule PO (21:19)
[2021-06-29] VITALS (19 sets, daily range): BP systolic 80–143; BP diastolic 35–111; PULSE 64–138; RESP 18–40; TEMP 36.1–37.2; O2SAT 93–99
[2021-06-29] MEDS: hydrOXYzine 10 MG Tablet PO (05:25)
[2021-06-29 06:35] LABS: Absolute Lymphocyte Count 0.43 X10^3/uL (0.83-4.51); Absolute Neutrophil Count 18.5 X10^3/uL (2.0-7.7); Basophil# 0.11 X10^3/uL; Basophil% 0.6 % (0-1); Eosinophil# 0.01 X10^3/uL; Eosinophils% 0.1 % (0-5); Hematocrit 31.2 % (40-54); Hemoglobin 10.5 g/dL (13.0-16.5); Lymphocyte # 0.43 X10^3/ul (0.83-4.51); Lymphocyte % 2.2 % (19-41); Mean Corp Hgb Conc 33.7 g/dL (32-36); Mean Corpuscular Hgb 32.2 pg (27.0-32.0); Mean Corpuscular Volume 95.7 fL (80-94); Mean Platelet Vol. 11.3 fl (6.2-12.0); Monocyte# 0.49 X10^3/uL; Monocyte% 2.5 % (0-10); NRBC Flagged by Analyzer 0.6 % (0-5); Neutrophil # 18.52 X10^3/uL (2.7-7.7); Neutrophil % 92.5 % (47-70); POSITIVE DIFFERENTIAL YES; POSITIVE MORPHOLOGY YES; Platelet Count 372 K/mm3 (150-450); RBC Distribution Width CV 16.4 % (11.6-14.6); RBC Distribution Width SD 56.7 fl (35.1-43.9); Red Blood Count 3.26 M/mm3 (4.6-6.2)
[2021-06-29 06:39] LABS: Differential Indicated SCAN CRITERIA MET
[2021-06-29 07:09] LABS: Schistocytes 1+
[2021-06-29 07:10] LABS: Anion Gap 14 (5-15); BUN 86 mg/dL (7-18); BUN/Creat Ratio 28.2 RATIO (10-20); Chloride 91 mmol/L (98-107); Creatinine, Serum 3.05 mg/dL (0.70-1.30); EST Glomerular Filtration Rate 21 mL/min (>60); Est Glom Filt Rate - Afr Amer 25 mL/min (>60); Estimated Creatinine Clearance 18.38 ml/min; Glucose 98 mg/dL (74-106); Potassium 3.3 mmol/L (3.5-5.1); Sodium Level 128 mmol/L (136-145)
--- NOTE | 2021-06-29 07:30 | CT_ITS ---
STUDY: CT CHEST WITHOUT CONTRAST REASON FOR EXAM: Male, 81 years old. Pneumonia RADIATION DOSAGE (If Supplied By Facility): CTDIvol = ( 20.06 ) mGy, DLP = ( 817.27 ) mGycm TECHNIQUE: Transaxial imaging was performed without the administration of intravenous contrast material. Individualized dose optimization techniques were used for this CT. COMPARISON: None. FINDINGS: Significant motion artifacts. Compressive atelectatic changes in both lower lobes. Possible superimposed pneumonia in the left lung base. Mild prominence of the pulmonary vasculature. Small bilateral pleural effusions. There is mild cardiac enlargement. Small pericardial effusion. Coronary calcifications. Prominent node in the aortopulmonic window measuring about 2 cm. Normal hilar regions. Normal unenhanced pulmonary arteries. There is atherosclerotic calcification of the aortic arch with tortuosity and elongation of the aortic arch and descending thoracic aorta. There are multi-level degenerative changes of the thoracic spine. The visualized upper abdomen demonstrate multiple large left renal cysts. 3.8 cm calcified mass in the right paraspinal region. Etiology is undetermined at this time. 1. CT/Chest without Contrast IMPRESSION: 2. Bilateral lower lobes compressive atelectatic changes. Superimposed mild pneumonic process in the left lung base is difficult to exclude. 3. Small bilateral pleural effusions. 4. Prominent mediastinal nodes likely reactive. 5. Small pericardial effusion. Electronically Signed: Moises Jones MD at 8:33 EDT Tel , Service support ,
--- NOTE | 2021-06-29 07:33 | PN.HOSP_ITS ---
Subjective Subjective Seen this a.m. More delirious compared to previous WBC count continues to trend up. CT of the chest demonstrated pneumonic process in the left lung base. Subsequently started on broad-spectrum antibiotic therapy Objective Data Objective Data Vital Signs: Vital Signs Temp Pulse Resp BP Pulse Ox 99.0 F 126 H 20 H 115/75 97 06/29/21 06:11 06/29/21 06:34 06/29/21 06:11 06/29/21 06:11 06/29/21 06:11 Oxygen Flow Rate (L/min) 3 Oxygen Delivery Method Nasal Cannula Weight: 111 kg Body Mass Index (BMI) 35.9 Intake & Output: Intake and Output for Last 24 Hours 06/27/21 06/28/21 06/29/21 23:59 23:59 23:59 Intake Total 2572.50 / 2572.50 1004 / 1124 180 / 180 Output Total 925 / 1250 525 / 700 175 / 175 Balance 1647.50 / 1322.50 479 / 424 5 / 5 Medical Nutrition Assessment Dietitian: Nutrition Therapy Diagnosis Start: 06/26/21 14:55 Freq: Status: Active Protocol: Document 06/26/21 15:27 AG (Rec: 06/26/21 15:27 AG [id number]) Nutrition Malnutrition Evidence of Malnutrition Exists No Intake Problem Inadequate Oral Intake Etiology (predicted) r/t reported decreased appetite Signs/Symptoms as evidenced by estimated energy intake meeting <75% of estimated nutritional needs Status Active Problem Recommendation Dietitian Recommendations/Changes continue regular diet until adequate PO intake is established. Continue Glucerna 120mL 4x/day. Lab / Micro Data Result Diagrams: 06/29/21 05:52 06/29/21 05:52 Labs: Laboratory Results - last 24 hr 06/28/21 07:10: WBC 18.6 H, RBC 3.18 L, Hgb 10.0 L, Hct 31.1 L, MCV 97.8 H D, MC H 31.4, MCHC 32.2 D, RDW Std Deviation 57.9 H, RDW Coeff of Natalia 16.7 H, Plt Count 357, MPV 11.5, Immature Gran % (Auto) 1.700 H, Neut % (Auto) 91.3 H, Lymph % (Auto) 3.0 L, [place] % (Auto) 3.1, Eos % (Auto) 0.6, Baso % (Auto) 0.3, Absolute Neuts (auto) 17.0 H, Absolute Lymphs (auto) 0.56 L, Nucleated RBC % 0.4 06/28/21 07:10: Sodium 131 L, Potassium 3.8, Chloride 97 L, Carbon Dioxide 23.0, Anion Gap 11, BUN 74 H, Creatinine 2.49 H, Estim Creat Clear Calc 22.51, Est GFR (MDRD) Af Amer 32 L, Est GFR (MDRD) Non-Af 27 L, BUN/Creatinine Ratio 29.7 H, Glucose 100, Calcium 8.6 06/28/21 07:10: Magnesium 1.7 06/28/21 10:43: PT 36.5 H, INR 3.8 06/29/21 05:52: WBC 20.0 H, RBC 3.26 L, Hgb 10.5 L, Hct 31.2 L, MCV 95.7 H, MCH 32.2 H, MCHC 33.7, RDW Std Deviation 56.7 H, RDW Coeff of Natalia 16.4 H, Plt Count 372, MPV 11.3, Immature Gran % (Auto) 2.100 H, Neut % (Auto) 92.5 H, Lymph % (Auto) 2.2 L, [place] % (Auto) 2.5, Eos % (Auto) 0.1, Baso % (Auto) 0.6, Absolute Neuts (auto) 18.5 H, Absolute Lymphs (auto) 0.43 L, Nucleated RBC % 0.6, Schistocytes 1+ 06/29/21 05:52: Sodium 128 L, Potassium 3.3 L, Chloride 91 L, Carbon Dioxide 23.0, Anion Gap 14, BUN 86 H, Creatinine 3.05 H, Estim Creat Clear Calc 18.38, Est GFR (MDRD) Af Amer 25 L, Est GFR (MDRD) Non-Af 21 L, BUN/Creatinine Ratio 28.2 H, Glucose 98, Calcium 8.0 L, Magnesium 2.0 Micro: Microbiology 06/28/21 11:15 Mucosa - Nose SARS-CoV-2 Antigen (Rapid) - Final Physical Exam Narrative GENERAL: Appears delirious HEENT: Atraumatic; EYES; Anicteric, Normal Conjunctiva NECK; supple, normal thyroid, RESPIRATORY: Diminished to auscultation CARDIOVASCULAR: Irregular S1 S2, GI: soft, normoactive bowel sounds, NEURO: Awake; no lateralizing signs. SKIN: No Rash PSYCH; Flat affect Assessment & Plan Assessment/Plan (1) Non-STEMI (non-ST elevated myocardial infarction): (2) Hypokalemia: (3) Chronic kidney disease, stage IV (severe): (4) Atrial fibrillation: QUALIFIERS: Atrial fibrillation type: longstanding persistent Qualified Code(s): I48.11 - Longstanding persistent atrial fibrillation (5) CHF (congestive heart failure): QUALIFIERS: Heart failure chronicity: chronic Heart failure type: diastolic Qualified Code(s): I50.32 - Chronic diastolic (congestive) heart failure (6) Anemia: PLAN: Patient is an 81-year-old gentleman admitted with a fall found to have elevated cardiac enzymes as well as leukocytosis 1. Acute metabolic encephalopathy ?Secondary to combination of pneumonia as well as worsening kidney function 2. Community-acquired pneumonia ?Patient presented with leukocytosis initial chest x-ray did not show any infiltrate. In view of patient worsening delirium CT of the chest was ordered which demonstrated pneumonic process in the left lung base. Patient subsequently started on broad-spectrum antibiotic therapy 3. Elevated troponin ?Do suspect NSTEMI type II as a result of worsening kidney function, patient denies any chest pain no shortness of breath EKG no acute changes. Patient has been admitted to telemetry for continuous monitoring as part of his evaluation ordered serial cardiac enzymes, 2D echo and consultation placed to cardiology. Patient was not started on heparin since he is already anticoagulated with Coumadin with an INR of 3.1 ?06/27/2021 2D echo obtained did not demonstrate any regional wall motion abnormality Case was discussed with cardiology Dr. Vergara who was was of the view that patient's elevated troponin was possibly secondary to his impaired kidney function. 4. Acute kidney injury ?Superimposed on chronic kidney disease stage IV. Patient last creatinine obtained on was 1.95. Creatinine on admission was 2.76. Patient has been started on IV fluids with monitoring of electrolytes ordered. Patient was also on diuretics currently held -06/27/2021; resumed diuretics after patient went into respiratory distress 5. Hypokalemia ?Patient is on diuretics held and potassium replaced per protocol with monitoring ordered for a.m. -06/29/2021; potassium down to 3.3 additional potassium given 6. Nonsustained runs of VT ?Electrolytes obtained demonstrated magnesium of 1.7. An order was given for magnesium sulfate 2 g x 1. Patient anticipated discharge discontinued 7. Acute on chronic congestive heart failure with preserved ejection fraction ?Patient is on diuretics held in view of his hypokalemia as well as worsening kidney function. 2D echo ordered for wall motion assessment as well as EF assessment -06/27/2021. Patient diuretics have been held on admission however he went into respiratory distress resulting in initiation of his diuretics. Echo obtained the day prior demonstrated EF of 65% 8. BPH ?Patient is on tamsulosin did continue 9. Chronic A. fib ?Rate controlled on systemic anticoagulation with Coumadin INR was 3.1 on admission Coumadin held INR ordered for a.m. 9.Acute mechanical nonsyncopal fall ?Patient has been admitted to regular nursing floor requested for PT OT eval and licensed clinical social worker to assist with discharge planning 10. Mild dementia ?Patient is on Namenda as well as Aricept did continue report 11. Gout ?Patient is on febuxostat did continue 12. Hypertension - Blood pressure controlled, home medications continued with dose adjustment as needed 13. Dyslipidemia -Patient is on statin therapy, continued at home dose 14. Chronic hypoxic respiratory failure ?Patient is on baseline home oxygen 2 L 15. DVT prophylaxis ?Patient is on Coumadin 16. Depression with anxiety ?Patient is on SNRI did continue 17. Obesity with BMI of 38.2 ?Weight loss advised Charges/Coding Visit Charges Inpatient E&M: 77716 Subs Hosp L3
[2021-06-29] MEDS: Nystatin Powder 15gm Bottle 1 APPLIC TOPICAL ×2 (09:05→19:56)
[2021-06-29] MEDS: Menthol/Lanolin/Calamine/Znox 113 GM Tube 1 APPLIC TOPICAL ×2 (09:05→19:55)
[2021-06-29] MEDS: Carvedilol 6.25 MG Tablet PO (09:06)
[2021-06-29] MEDS: Furosemide 40 MG Tablet PO (09:07)
[2021-06-29] MEDS: Potassium Chloride 10mEq/100mL 10 MEQ/100 ML IV.SOLN. 100 MEQ IV BOLUS ×4 (09:47→16:34)
[2021-06-29 12:40] LABS: Bedside Glucose 81 mg/dL (70-110)
[2021-06-29 12:51] LABS: Allen Test Positive; Base Excess -5 mmol/L (-2 to +2); Bicarbonate 19.3 mmol/L (22-26); Blood Gas Specimen Type ART; O2 Delivery Device Cannula; PO2 75 mmHG (75-100); SITE L Radial; SO2 96 % (95-99); Total Carbon Dioxide 20 mmol/L; pCO2 29.2 mmHg (35-45); pH 7.43 (7.35-7.45)
[2021-06-29 12:54] LABS: International Normalized Ratio 3.6; Prothrombin Time (Protime)PT. 35.2 SECONDS (11.7-14.9)
--- NOTE | 2021-06-29 12:59 | PCM.RX.CS ---
Consult Pharmacy has been consulted to manage selected antiobiotic: Vancomycin Type of Consult: New start Suspected Infection: Pneumonia Prior Doses of Antibiotics Received/Current Regimen: Received 2gm iv x 1 this AM 06.29.21. Labs: Sodium 128 mmol/L (136-145) L 06/29/21 05:52 Potassium 3.3 mmol/L (3.5-5.1) L 06/29/21 05:52 Chloride 91 mmol/L (98-107) L 06/29/21 05:52 Carbon Dioxide 23.0 mmol/L (21.0-32.0) 06/29/21 05:52 Anion Gap 14 (5-15) 06/29/21 05:52 BUN 86 mg/dL (7-18) H 06/29/21 05:52 Creatinine 3.05 mg/dL (0.70-1.30) H 06/29/21 05:52 Est GFR (MDRD) Af Amer 25 mL/min (>60) L 06/29/21 05:52 Est GFR (MDRD) Non-Af 21 mL/min (>60) L 06/29/21 05:52 BUN/Creatinine Ratio 28.2 RATIO (10-20) H 06/29/21 05:52 Glucose 98 mg/dL (74-106) 06/29/21 05:52 Microbiology: Microbiology 06/28/21 11:15 Mucosa - Nose SARS-CoV-2 Antigen (Rapid) - Final Weight used for dosin kg Estimated Creatinine Clearance: 18ml/min Goal Trough: 15-20 mcg/mL Pharmacy Plan for Drug Dosing: Renal function with Cr 3.05. Will get a random level in AM 07.01.21 to determine further dosing. Pharmacy Service will continue to monitor and adjust dosing as required. Follow-Up Labs: Trough Vancomycin - random level 07.01.21 0600
[2021-06-29 14:59] LABS: Bedside Glucose 67 mg/dL (70-110)
--- NOTE | 2021-06-29 15:23 | PCM.HOSP.N ---
Hospitalist Note Did evaluate patient per nursing request. Patient has become increasingly delirious. Patient seen, lethargic but arousable. ABG obtained demonstrated compensated respiratory alkalosis. Patient was also found to be hypoglycemic with blood glucose Also went over patient's case with the was by the bedside did discuss patient CODE STATUS which was initially reported to be full code on admission. Patient's elected for the CODE STATUS to be changed from full code to DNR CCA no intubation. Order placed.
[2021-06-29] MEDS: 0.9% Saline Lock 10 ML Syringe IV ×3 (15:26→22:38)
[2021-06-29] MEDS: Dextrose 50%-Water 25 GM/50 ML DISP.SYRIN IV (15:26)
[2021-06-29 16:46] LABS: Bedside Glucose 117 mg/dL (70-110)
[2021-06-29] MEDS: Dextrose 5%/0.9% NaCl 1,000 ML 75 ML IV (17:42)
[2021-06-29 19:01] LABS: Bedside Glucose 108 mg/dL (70-110)
[2021-06-29] MEDS: Metoprolol Tartrate 5 MG/5 ML Vial 2.5 MG IV (20:29)
--- NOTE | 2021-06-29 21:27 | NURSING ---
DIFFICULT TO GET AN ACCURATE BP DUE TO PATIENT BEING RESTLESS AND MOVING EXTREMITIES
[2021-06-29] MEDS: Lactated Ringers 1,000 ML 999 ML IV (22:38)
--- NOTE | 2021-06-29 22:41 | NURSING ---
This RN is attempted to call Diane at this time with no answer
[2021-06-29 22:55] LABS: Bedside Glucose 103 mg/dL (70-110)
--- NOTE | 2021-06-29 23:23 | PCM.HOSP.N ---
Hospitalist Note Seen and examined. Patient running low blood pressure, systolic 89/57, systolic 80/35, no fever pulse ox 96% on 3 L of oxygen. On exam Patient is confused, disoriented, yelling and screaming. Lungs: Air entry diminished bilaterally. No crepitation but transmitted sound from upper airway. Heart: S1-S2 regular, no murmur gallop or rub. Abdomen: Mild distention. Earlier, daytime hospitalist saw the patient and found confused, delirious and lethargic. CODE STATUS changed to DNR CC arrest with no intubation. Patient is on broad-spectrum antibiotic. Patient is transferred to ICU Chest CT scan superimposed mild pneumonic process left lung base on bilateral lower lobes atelectatic changes. Patient has leukocytosis with left shift. 92% neutrophils. INR elevated. Creatinine elevated. Lactic acid ordered. Patient is transferred to ICU. IV fluid Ringer lactate 2 L bolus restricted as patient seems mild fluid overload and if still low, start on low-dose vasopressor. Clinical Impression(s) from Imaging Studies Brain CT 06/26/21 07:38 IMPRESSION: Chronic involutional changes of the brain. Chest X-Ray 06/26/21 09:47 IMPRESSION: Increased markings at the lung bases suggestive of either early atelectasis and/or scarring with blunting of the right costophrenic angle. Cardiomegaly. Echocardiogram 06/26/21 13:11 Interpretation Summary The estimated ejection fraction is 65 %. Trivial mitral valve insufficiency. Mild aortic stenosis. Unable to assess diastolic dysfunction. Mild-Moderate mitral valve stenosis. Chest CT 06/29/21 07:30 IMPRESSION: 2. Bilateral lower lobes compressive atelectatic changes. Superimposed mild pneumonic process in the left lung base is difficult to exclude. 3. Small bilateral pleural effusions. 4. Prominent mediastinal nodes likely reactive. 5. Small pericardial effusion.
[2021-06-30] MEDS: Lactated Ringers 1,000 ML 999 ML IV
--- NOTE | 2021-06-30 00:02 | NURSING ---
Speaking to Diane Reinoso at this time. States, Pipe hasn't been happy for some time now, and I don't want to do anything to prolong this kind of life for him. Explained the different code status options and she would like Pt changed to a DNR-CC. Will update Dr. Bustos.
--- NOTE | 2021-06-30 00:36 | NURSING ---
updated per Dr. Bustos the pt's code status will be changed to DNRCC. No aggressive measures will be taken, comfort care only. agrees with plan of care. Offered emotional support and time to ask questions, had no questions at this time.
[2021-06-30 01:50] LABS: Bedside Glucose 88 mg/dL (70-110)
[2021-06-30] MEDS: Morphine 2 MG/ML Syringe IV (03:20)
[2021-06-30 03:51] LABS: Absolute Lymphocyte Count 0.58 X10^3/uL (0.83-4.51); Absolute Neutrophil Count 29.5 X10^3/uL (2.0-7.7); Basophil# 0.03 X10^3/uL; Basophil% 0.1 % (0-1); Eosinophil# 0.22 X10^3/uL; Eosinophils% 0.7 % (0-5); Hematocrit 30.4 % (40-54); Hemoglobin 9.9 g/dL (13.0-16.5); Lymphocyte # 0.58 X10^3/ul (0.83-4.51); Lymphocyte % 1.8 % (19-41); Mean Corp Hgb Conc 32.6 g/dL (32-36); Mean Corpuscular Hgb 31.5 pg (27.0-32.0); Mean Corpuscular Volume 96.8 fL (80-94); Mean Platelet Vol. 11.1 fl (6.2-12.0); Monocyte# 0.68 X10^3/uL; Monocyte% 2.2 % (0-10); NRBC Flagged by Analyzer 0.6 % (0-5); Neutrophil # 29.45 X10^3/uL (2.7-7.7); Neutrophil % 93.2 % (47-70); POSITIVE COUNT YES; POSITIVE DIFFERENTIAL YES; POSITIVE MORPHOLOGY YES; Platelet Count 367 K/mm3 (150-450); RBC Distribution Width CV 16.9 % (11.6-14.6); RBC Distribution Width SD 58.2 fl (35.1-43.9); Red Blood Count 3.14 M/mm3 (4.6-6.2)
[2021-06-30 04:03] LABS: International Normalized Ratio 3.9; Prothrombin Time (Protime)PT. 37.7 SECONDS (11.7-14.9)
[2021-06-30 04:21] LABS: Anion Gap 15 (5-15); BUN 102 mg/dL (7-18); BUN/Creat Ratio 29.3 RATIO (10-20); Calcium,Total 7.7 mg/dL (8.5-10.1); Chloride 93 mmol/L (98-107); Creatinine, Serum 3.48 mg/dL (0.70-1.30); EST Glomerular Filtration Rate 18 mL/min (>60); Est Glom Filt Rate - Afr Amer 22 mL/min (>60); Estimated Creatinine Clearance 16.11 ml/min; Glucose 99 mg/dL (74-106); Magnesium 2.2 mg/dL (1.6-2.6); Potassium 4.2 mmol/L (3.5-5.1); Sodium Level 129 mmol/L (136-145)
[2021-06-30 04:35] LABS: Differential Indicated SCAN CRITERIA MET; White Blood Count 31.6 K/mm3 (4.4-11.0)
[2021-06-30 05:07] LABS: Acanthocytes 1+; Burr Cells 1+; Polychromasia 1+
--- NOTE | 2021-06-30 07:12 | NURSING ---
Diane updated on transfer to [facility]
[2021-06-30 07:15] LABS: Bedside Glucose 104 mg/dL (70-110)
--- NOTE | 2021-06-30 07:41 | NURSING ---
Called and let Pt know that he passed on transfer Pt over [facility] bed.
--- NOTE | 2021-06-30 07:45 | NURSING ---
Pt will be going with Shona Forman of [facility] in [place]. [address] [phone]
--- NOTE | 2021-06-30 10:54 | CASEMGMT ---
Social Work Note Pt this morning. JENIFFER placed a call to pt's Diane and provided support. Diane states pt went downhill quickly and pt is in a better place now. Diane states once pt got pneumonia that was the last straw. Diane states since pt has been on oxygen, pt hasn't been happy. Dinae states that she has an awesome support system and states that she has supportive family and friends. JENIFFER spoke with Diane about bereavement/grief services and offered to send Diane resources and Diane denied at this time. Diane denied additional needs or concerns at this time. Deisy Castillo OBSTETRICIAN GYNECOLOGIST, [employer]
[2021-06-30 15:50] LABS: Pathologist Review Reviewed
--- NOTE | 2021-07-11 00:48 | PCM.DEATH ---
Preliminary Cause of Preliminary Cause of Preliminary Cause of : Pneumonia Acute knee injury Date of Admission: 06/26/21 Hospital Course Patient is an 81-year-old gentleman admitted with a fall found to have elevated cardiac enzymes as well as leukocytosis. An assessment of acute metabolic encephalopathy secondary to acute kidney injury superimposed on chronic kidney disease made acute non-STEMI made. Admitted to a monitored bed where patient was admitted beats per protocol. Patient ambulatory on continue to worsen. CT of the chest was ordered subsequently on the results CT demonstrated pneumonic process in the left base. Subsequently started on antibiotic therapy. Patient condition however did not improve Case discussed with patient's CODE STATUS was changed from full code to DNR CCA.. Patient clinical condition continues to deteriorate despite optimal management. Further discussions were later held with the patient CODE STATUS still needs to DNR comfort care. Patient was found without heart tones and spontaneous respiration on 06/30/2021 0741 patient was pronounced family notified Visit Charges Inpatient E&M: 86432 Disch Hosp
== END 2021-06-30 11:05 | DRG 682 ==
LOC: ED 10:57 → PCU 12:29 → ICU 06-30 00:10 → MS3 06-30 11:22 → ICU 07-01 11:12
PROVIDERS: Admitting Provider Internal Medicine; Emergency Provider Emergency Medicine
DX: N17.9 Acute kidney failure, unspecified (principal); J18.9 Pneumonia, unspecified organism; I50.33 Acute on chronic diastolic (congestive) heart failure; G93.41 Metabolic encephalopathy; I13.0 Hypertensive heart and chronic kidney disease with heart failure and stage 1 through stage 4 chronic kidney disease, or unspecified chronic kidney disease; I48.20 Chronic atrial fibrillation, unspecified; J96.11 Chronic respiratory failure with hypoxia; I47.2 Ventricular tachycardia; N18.4 Chronic kidney disease, stage 4 (severe); F02.80 Dementia in other diseases classified elsewhere, unspecified severity, without behavioral disturbance, psychotic disturbance, mood disturbance, and anxiety; G30.9 Alzheimer's disease, unspecified; Z87.891 Personal history of nicotine dependence; E87.6 Hypokalemia; Z68.38 Body mass index [BMI] 38.0-38.9, adult; E66.9 Obesity, unspecified; W18.30XA Fall on same level, unspecified, initial encounter; Y93.01 Activity, walking, marching and hiking; Y92.008 Other place in unspecified non-institutional (private) residence as the place of occurrence of the external cause; Y99.8 Other external cause status; Z79.01 Long term (current) use of anticoagulants; N40.0 Benign prostatic hyperplasia without lower urinary tract symptoms; F41.9 Anxiety disorder, unspecified; F32.9 Major depressive disorder, single episode, unspecified; E78.5 Hyperlipidemia, unspecified; Z99.81 Dependence on supplemental oxygen; Z79.899 Other long term (current) drug therapy; M10.9 Gout, unspecified; D72.829 Elevated white blood cell count, unspecified; Z66 Do not resuscitate
CPT/HCPCS: 36415; 36600; 70450; 71045; 71250; 80048; 80053; 80061; 81001; 82803; 82962; 83735; 84484; 85025; 85610; 87040; 87077; 87149; 87186; 87426; 87449; 87633; 87635; 93005; 93306; 94640; 94762; 97110; 97163; 97166; 97530; 97535; 99251; 99285; J7030; J7040; J7120; U0005; A4216; G0463; U0003